=== PATIENT | female | born 1960 | race Caucasian/White ===

== ENCOUNTER 2016-10-30 16:18 | Emergency (ER) | payer MEDICARE ==
[2016-10-30] MEDS ORDERED: ASPIRIN 81 MG TABLET, CHEWABLE PO ONE (17:17)
--- NOTE | 2016-10-30 17:23 | ER Document Report ---
ED Medical Screen (RME) - General Stated Complaint: CHEST PAIN Mode of Arrival: Ambulatory Information source: Patient Notes: 66 y/o M presents to ED c/o mid chest/epigastric pain. Reports hx of pancreatitis and aortic aneurysm. Denies n/v, or sob. I have greeted and performed a rapid initial assessment of this patient. A comprehensive ED assessment and evaluation of the patient, analysis of test results and completion of the medical decision making process will be conducted by additional ED providers. TRAVEL OUTSIDE OF THE [place] IN LAST 30 DAYS: No - Related Data Allergies/Adverse Reactions: No Known Allergies Allergy (Unverified 10/30/16 17:19) Past Medical History - Social History Frequency of alcohol use: None Drug Abuse: None Renal/ Medical History: Denies: Hx Peritoneal Dialysis Physical Exam - Vital signs Vitals: Temp Pulse Resp BP Pulse Ox 98.1 F 73 21 H 142/94 H 96 10/30/16 17:11 10/30/16 17:11 10/30/16 17:11 10/30/16 17:11 10/30/16 17:11 - General General appearance: Appears well, Alert In distress: None - Respiratory Respiratory status: No respiratory distress Course - Vital Signs Vital signs: Temp Pulse Resp BP Pulse Ox 98.1 F 73 21 H 142/94 H 96 10/30/16 17:11 10/30/16 17:11 10/30/16 17:11 10/30/16 17:11 10/30/16 17:11
[2016-10-30 17:45] LABS: ABSOLUTE EOSINOPHILS # (AUTO) 0.2 10^3/uL (0.0-0.6); ABSOLUTE LYMPHOCYTES (AUTO) 2.2 10^3/uL (0.5-4.7); ABSOLUTE MONOCYTES (AUTO) 0.5 10^3/uL (0.1-1.4); ABSOLUTE NEUT (AUTO) 4.3 10^3/uL (1.7-8.2); BASOPHILS % (AUTO) 0.6 % (0-2); EOSINOPHILS % (AUTO) 2.2 % (0-6); HEMATOCRIT 45.3 % (36.0-47.0); HGB HCT DIFFERENCE -0.3; LYMPHOCYTES % (AUTO) 30.1 % (13-45); MEAN CORPUSCULAR HEMOGLOBIN 29.4 pg (27.0-33.4); MEAN CORPUSCULAR HGB CONC 33.1 g/dL (32.0-36.0); MEAN CORPUSCULAR VOLUME 89 fl (80-97); MONOCYTES % (AUTO) 7.4 % (3-13); RED BLOOD COUNT 5.11 10^6/uL (3.72-5.28); RED CELL DISTRIBUTION WIDTH 14.6 % (11.5-14.0); SEGMENTED NEUTROPHILS % (AUTO) 59.7 % (42-78); WHITE BLOOD COUNT 7.2 10^3/uL (4.0-10.5)
[2016-10-30 17:50] LABS: APPEARANCE,URINE SLIGHTLY-CLOUDY; BILIRUBIN,URINE NEGATIVE (NEGATIVE); GLUCOSE, URINE NEGATIVE (NEGATIVE); KETONES,URINE NEGATIVE (NEGATIVE); LEUKOCYTE ESTERASE,URINE MODERATE (NEGATIVE); NITRITE,URINE POSITIVE (NEGATIVE); PROTEIN,URINE NEGATIVE (NEGATIVE); URINE SPECIFIC GRAVITY 1.009; UROBILINOGEN,URINE NEGATIVE mg/dL (<2.0)
[2016-10-30 18:03] LABS: ALANINE AMINOTRANSFERASE 23 U/L (9-52); ALKALINE PHOSPHATASE 99 U/L (38-126); ANION GAP 13 (5-19); ASPARTATE AMINO TRANSFERASE 18 U/L (14-36); BILIRUBIN,TOTAL 0.6 mg/dL (0.2-1.3); BLOOD UREA NITROGEN 10 mg/dL (7-20); CALCIUM 10.2 mg/dL (8.4-10.2); CARBON DIOXIDE 26 mmol/L (22-30); CHLORIDE 105 mmol/L (98-107); CREATINE KINASE 29 U/L (30-135); CREATININE RESULT 0.69 mg/dL (0.52-1.25); GLUCOSE 83 mg/dL (75-110); SODIUM 144.3 mmol/L (137-145); TOTAL PROTEIN 7.7 g/dL (6.3-8.2)
[2016-10-30 18:28] LABS: CREATINE KINASE MB < 0.22 ng/mL (<4.55); TROPONIN I < 0.012 ng/mL
[2016-10-30] MEDS ORDERED: FAMOTIDINE INJ/PF 20 MG/2 ML SDV IV ONE (20:14)
[2016-10-30] MEDS ORDERED: MORPHINE SULFATE 10 MG/ML INJ IV ONE (20:14)
[2016-10-30] MEDS ORDERED: ONDANSETRON HCL INJ/PF 4 MG/2 ML SDV IV ONE (20:14)
--- NOTE | 2016-10-30 20:34 | EKG REPORT ---
SEVERITY:- BORDERLINE ECG - SINUS RHYTHM : Confirmed by: John Galeano MD 30-Oct-2016 20:32:54
[2016-10-30] MEDS ORDERED: HYDROMORPHONE HCL INJ/PF 2 MG/ML AMPULE IV ONE (21:48)
[2016-10-30] MEDS ORDERED: LIDOCAINE 1% INJ-PF (10 MG/ML) 30 ML SDV INFIL ONE (21:49)
[2016-10-30] MEDS ORDERED: CEFTRIAXONE INJ 1000 MG VIAL IM ONE (21:49)
[2016-10-30] MEDS ORDERED: HYDROCODONE/ACETAMINOPHEN 5-325 MG 6 TAB/DSPK PO PRN (22:00)
--- NOTE | 2016-10-30 22:01 | ER Document Report ---
ED Cardiac - General Chief Complaint: Chest Pain Stated Complaint: CHEST PAIN Mode of Arrival: Ambulatory Notes: Patient is a 56-year-old female who comes in complaining of epigastric pain. Patient has a history of chronic pancreatitis recently moved to the area. Patient states that she has not seen a primary care doctor to prescribe her chronic pain medication. Patient also has a history of aortic aneurysm. Patient states that the pain radiates into her back. Denies any tearing or ripping sensation. Patient states that the pain is less than her chest and more in her epigastrium. Patient states that she was given aspirin at triage and it seemed to make things worse. Patient denies any urinary symptoms or flank pain. Denies fever. TRAVEL OUTSIDE OF THE [place] IN LAST 30 DAYS: No - HPI Patient complains to provider of: Other - Epigastric pain Quality of pain: Burning, Dull Severity now: Moderate Severity at worst: Moderate Associated symptoms: None Exacerbated by: Denies Relieved by: Nothing Similar symptoms previously: Yes Recently seen / treated by doctor: No - Related Data Allergies/Adverse Reactions: No Known Allergies Allergy (Unverified 10/30/16 17:19) Past Medical History - General Information source: Patient - Social History Smoking Status: Current Every Day Smoker Frequency of alcohol use: None Drug Abuse: None Family History: Reviewed & Not Pertinent Patient has suicidal ideation: No Patient has homicidal ideation: No - Past Medical History Cardiac Medical History: Reports: Other - AAA Renal/ Medical History: Denies: Hx Peritoneal Dialysis GI Medical History: Reports: Other - Chronic pancreatitis Traumatic Medical History: Reports: None Infectious Medical History: Reports: None Past Surgical History: Reports: Hx Cholecystectomy, Hx Vascular Surgery Review of Systems - Review of Systems Constitutional: No symptoms reported EENT: No symptoms reported Cardiovascular: No symptoms reported Respiratory: No symptoms reported Gastrointestinal: See HPI Genitourinary: No symptoms reported Female Genitourinary: No symptoms reported Musculoskeletal: No symptoms reported Skin: No symptoms reported Hematologic/Lymphatic: No symptoms reported Neurological/Psychological: No symptoms reported Physical Exam - Vital signs Vitals: Temp Pulse Resp BP Pulse Ox 98.1 F 73 21 H 142/94 H 96 10/30/16 17:11 10/30/16 17:11 10/30/16 17:11 10/30/16 17:11 10/30/16 17:11 Interpretation: Normal - General General appearance: Appears well, Alert - HEENT Head: Normocephalic, Atraumatic Eyes: Normal Pupils: PERRL - Respiratory Respiratory status: No respiratory distress Chest status: Nontender Breath sounds: Normal Chest palpation: Normal - Cardiovascular Rhythm: Regular Heart sounds: Normal auscultation Murmur: No - Abdominal Inspection: Other - Healed incision consistent with history Distension: No distension Bowel sounds: Normal Tenderness: Nontender Organomegaly: No organomegaly - Back Back: Normal, Nontender - Extremities General upper extremity: Normal inspection, Nontender, Normal color, Normal ROM , Normal temperature General lower extremity: Normal inspection, Nontender, Normal color, Normal ROM , Normal temperature, Normal weight bearing. No: Irma's sign - Neurological Neuro grossly intact: Yes Cognition: Normal Orientation: AAOx4 [place] Coma Scale Eye Opening: Spontaneous [place] Coma Scale Verbal: Oriented [place] Coma Scale Motor: Obeys Commands [place] Coma Scale Total: 15 Speech: Normal Motor strength normal: LUE, RUE, LLE, RLE Sensory: Normal - Psychological Associated symptoms: Normal affect, Normal mood - Skin Skin Temperature: Warm Skin Moisture: Dry Skin Color: Normal Course - Re-evaluation Re-evalutation: 10/30/16 22:10 Patient is a 56 female with a history of aneurysm who comes in complaining of epigastric pain. Patient states that she is due for her to be checked in December. Patient is concerned that this is her chronic pancreatitis. She is new to the area and has not been able to get into see a doctor yet. Patient will be given pain medication to go home with then referral to primary care pain management. Stable for discharge. Understands agrees with plan. - Vital Signs Vital signs: Temp Pulse Resp BP Pulse Ox 98.1 F 73 12 155/89 H 97 10/30/16 17:11 10/30/16 17:11 10/30/16 21:22 10/30/16 21:22 10/30/16 21:42 - Laboratory Result Diagrams: 10/30/16 17:35 10/30/16 17:35 Laboratory results interpreted by me: 10/30/16 10/30/16 10/30/16 17:35 17:35 17:35 RDW 14.6 H Creatine Kinase 29 L Urine Blood MODERATE H Urine Nitrite POSITIVE H Ur Leukocyte Esterase MODERATE H Discharge - Discharge Clinical Impression: Atypical chest pain, Chronic pancreatitis Condition: Stable Disposition: HOME, SELF-CARE Instructions: Chest Pain of Unclear Cause ([facility]), Pancreatitis ([facility]), Family Physicians / Practices Prescriptions: Oxycodone HCl/Acetaminophen [Percocet 5-325 mg Tablet] 1 tab PO Q4H PRN #30 tablet PRN Reason: Forms: Elevated Blood Pressure Referrals: EDDA RASHEED MD [ACTIVE STAFF] - Follow up in 3-5 days
[2016-10-30 22:28] VITALS: BP 142/91
== END 2016-10-30 22:29 | disposition home or self-care (01) ==
LOC: ER 16:18
DX: R07.89 Other chest pain (principal); K86.1 Other chronic pancreatitis; R10.13 Epigastric pain; F17.200 Nicotine dependence, unspecified, uncomplicated; Z90.49 Acquired absence of other specified parts of digestive tract
CPT/HCPCS: 93005; 99285; 96372; 96374; 96375; 36415; 87086; 82553; 82550; 83690; 85025; 87088; 80053; 81001; 84484; 87186; 71020; 71275; 74174; 93010; A9270 ×2; J3490; J2270; J1170; J0696; J2405; S0028

== ENCOUNTER → 2017-03-07 | Outpatient (CLI) | payer MEDICARE, MEDICAID ==
--- NOTE | 2017-03-07 12:23 | RADIOLOGY REPORT (SQ) ---
EXAM DESCRIPTION: CT ABDOMEN COMBO COMPLETED DATE/TIME: 03/07/2017 10:31 am REASON FOR STUDY: EPIGASTRIC PAIN (R10.13), LUQ PIN (R10.12), ABD TENDERNESS-EPIGASTRIC (R10. R10.13 EPIGASTRIC PAIN R10.12 LEFT UPPER QUADRANT PAIN R10.816 EPIGASTRIC ABDOMINAL TENDERNESS COMPARISON: 10/30/2016 TECHNIQUE: CT scan of the abdomen performed with and without intravenous contrast, and with oral con trast. Contrasted imaging performed using helical scanning technique with dynamic intravenous contras t injection. Images reviewed with lung, soft tissue, and bone windows. Reconstructed coronal and sagi ttal MPR images reviewed. Delayed images for evaluation of the urinary system also acquired and evalu ated. All images stored on PACS. All CT scanners at this facility use dose modulation, iterative reconstruction, and/or weight based d osing when appropriate to reduce radiation dose to as low as reasonably achievable (ALARA). [facility]: Dose Right [facility]: CareDose [facility]: Dose Right [facility]: Teradose 4D [facility]: MET[employer] Network CONTRAST TYPE AND DOSE: 68mL Isovue 370- low osmolar. RENAL FUNCTION: Creatinine 0.7 GFR 97 RADIATION DOSE: 26.58mGy. LIMITATIONS: None. FINDINGS: NONCONTRASTED IMAGING: No significant renal or bladder calcifications. No other significan t organ calcifications. POSTCONTRASTED IMAGING: LOWER CHEST: No significant findings. No nodules or infiltrates. LIVER: There is mild intrahepatic ductal dilatation and there is dilatation of the common bile duct. SPLEEN: Normal size. No focal lesions. PANCREAS: No masses. No significant calcifications. No adjacent inflammation or peripancreatic fluid collections. Pancreatic duct not dilated. GALLBLADDER: Surgically absent. ADRENAL GLANDS: No significant masses or asymmetry. RIGHT KIDNEY AND URETER: No masses. A small portion of the right lower pole has been removed. No s ignificant calcifications. No hydronephrosis or hydroureter. LEFT KIDNEY AND URETER: No solid masses. No significant calcifications. No hydronephrosis or hydr oureter. AORTA AND VESSELS: There is a saccular aneurysm of the infrarenal abdominal aorta measures 39 mm in t ransverse diameter on image 39. There is mural thrombus on the right and residual lumen measures 22 mm. There is no dissection. The aorta narrows to a normal diameter at the bifurcation and there is no involvement of the iliac arteries. RETROPERITONEUM: No retroperitoneal adenopathy, hemorrhage or masses. BOWEL AND PERITONEAL CAVITY: There is mild wall thickening in the descending colon. There appears to have been resection of the right colon. APPENDIX: Surgically absent. ABDOMINAL WALL: No masses. No hernias. BONES: No significant or acute findings. OTHER: No other significant finding. IMPRESSION: 1. There is mild intrahepatic ductal dilatation and dilatation of the common bile duct felt to be secondary to the cholecystectomy. Is there clinical evidence of biliary obstruction? 2. Saccular aneurysm of the infrarenal abdominal aorta as described. The width of the aneurysm is s lightly increased compared to the earlier study. It is possible that the difference is merely second yaritza to a slightly different slice selection. 3. There is mild thickening of the wall of the descending colon. Is there clinical history of infla mmatory bowel disease? TECHNICAL DOCUMENTATION: JOB ID: [id number] Quality ID # [id number]: Final reports with documentation of one or more dose reduction techniques (e.g., Au tomated exposure control, adjustment of the mA and/or kV according to patient size, use of iterative reconstruction technique) 2010 [employer]- All Rights Reserved
== END ==
LOC: RAD 09:28
PROVIDERS: ATTEND Internal Medicine Gastroenterology
DX: R10.13 Epigastric pain (principal); R10.12 Left upper quadrant pain; R10.816 Epigastric abdominal tenderness
CPT/HCPCS: 74170; 82565

== ENCOUNTER → 2017-05-10 | Outpatient (CLI) | payer MEDICARE, MEDICAID ==
--- NOTE | 2017-05-10 13:30 | WOMENS IMAGING REPORT ---
EXAM DESCRIPTION: BILAT SCREENING MAMMO W/CAD COMPLETED DATE/TIME: 05/10/2017 12:47 pm REASON FOR STUDY: ROUTINE SCREENING; Z12.31 Z12.31 ENCNTR SCREEN MAMMOGRAM FOR MALIGNANT NEOPLASM O F NAIMA COMPARISON: None. TECHNIQUE: Standard craniocaudal and mediolateral oblique views of each breast recorded using digita l acquisition. LIMITATIONS: None. FINDINGS: No masses, calcifications or architectural distortion. No areas of suspicion. Read with the assistance of CAD. .[facility] - R2 Cenova Version 1.3 .[facility] - R2 Cenova Version 1.3 .[facility] - R2 Cenova Version 2.4 .[facility] - R2 Cenova Version 2.4 .[facility] - R2 Egyptologist Version 9.2 IMPRESSION: NORMAL MAMMOGRAM. BIRADS 1. BREAST DENSITY: c. The breasts are heterogeneously dense, which may obscure small masses. BIRAD: 1 NEGATIVE RECOMMENDATION: ROUTINE SCREENING COMMENT: The patient has been notified of the results by letter per SA requirements. Additional no tification policies are in place for contacting patient with suspicious or incomplete findings. Quality ID #225: The [place] [employer] recommends an annual screening mammogram for women aged 40 years or over. This facility utilizes a reminder system to ensure that all patients receive reminder letters, and/or direct phone calls for appointments. This includes reminders for routine scr eening mammograms, diagnostic mammograms, or other Breast Imaging Interventions when appropriate. Th is patient will be placed in the appropriate reminder system. The [place] [employer] (ACR) has developed recommendations for screening MRI of the breast s in certain patient populations, to be used in conjunction with mammography. Breast MRI surveillanc e may be appropriate for women with more than 20% lifetime risk of developing breast cancer as deter mined by genetic testing, significant family history of the disease, or history of mantle radiation f or Hodgkins Disease. ACR Practice Guidelines 2008. TECHNICAL DOCUMENTATION: FINDING NUMBER: (1) ASSESSMENT: (1) JOB ID: [id number] [employer]- All Rights Reserved
== END ==
LOC: WI 11:42
PROVIDERS: ATTEND Physician Assistant
DX: Z12.31 Encounter for screening mammogram for malignant neoplasm of breast (principal)
CPT/HCPCS: 77067; G0202

== ENCOUNTER → 2018-01-24 | Outpatient (CLI) | payer MEDICARE, MEDICAID ==
--- NOTE | 2018-01-24 11:56 | RADIOLOGY REPORT (SQ) ---
EXAM DESCRIPTION: U/S RETROPERITON (RENAL/AORTA) COMPLETED DATE/TIME: 01/24/2018 8:15 am REASON FOR STUDY: ABDOMINAL ANEURYSM I71.4 ABDOMINAL AORTIC ANEURYSM, WITHOUT RUPTURE COMPARISON: CT abdomen pelvis 03/07/2017, 10/30/2016 TECHNIQUE: Static and dynamic grayscale images acquired of the aorta and stored on PACs. Selected co nathalie Doppler and spectral images recorded. LIMITATIONS: None. FINDINGS: AORTIC CALIBER MAXIMAL PROXIMAL: 2.9 cm. MID: 2.6 cm. DISTAL: 4.3 x 3.1 cm distal abdominal aortic aneurysm, increased in size compared to CT abdomen pelvi s 03/07/2017. ILIAC DIAMETER RIGHT: 1.2 cm. LEFT: 1 cm. OTHER: No other significant finding. IMPRESSION: 4.3 x 3.1 cm distal abdominal aortic aneurysm just above the iliac bifurcation, increase d in size compared to CT exam 03/07/2017 COMMENT: Aorta screening examinations categories: Negative - less than 3 cm. TECHNICAL DOCUMENTATION: JOB ID: [id number] [employer]- All Rights Reserved Reading location - IP/workstation name: [facility]
== END ==
LOC: RAD 07:55
PROVIDERS: ATTEND Surgery
DX: I71.4 Abdominal aortic aneurysm, without rupture (principal)
CPT/HCPCS: 76770

== ENCOUNTER → 2018-05-11 | Outpatient (CLI) | payer MEDICARE, MEDICAID ==
--- NOTE | 2018-05-11 14:41 | WOMENS IMAGING REPORT ---
EXAM DESCRIPTION: BILAT SCREENING MAMMO W/CAD COMPLETED DATE/TIME: 05/11/2018 11:54 am REASON FOR STUDY: BILATERAL SCREENING; Z12.31 Z12.31 ENCNTR SCREEN MAMMOGRAM FOR MALIGNANT NEOPLASM OF NAIMA COMPARISON: 2017 TECHNIQUE: Standard craniocaudal and mediolateral oblique views of each breast recorded using digita l acquisition. LIMITATIONS: None. FINDINGS: No masses, calcifications or architectural distortion. No areas of suspicion. Read with the assistance of CAD. .[facility] - R2 Cenova Version 1.3 .[facility] Imaging - R2 Cenova Version 1.3 .[facility] - R2 Cenova Version 2.4 .[facility] - R2 Cenova Version 2.4 .[facility] - R2 Lens [employer]inder Version 9.2 IMPRESSION: NORMAL MAMMOGRAM. BIRADS 1. BREAST DENSITY: b. There are scattered areas of fibroglandular density. BIRAD: 1 NEGATIVE RECOMMENDATION: ROUTINE SCREENING COMMENT: The patient has been notified of the results by letter per SA requirements. Additional no tification policies are in place for contacting patient with suspicious or incomplete findings. Quality ID #225: The [place] [employer] recommends an annual screening mammogram for women aged 40 years or over. This facility utilizes a reminder system to ensure that all patients receive reminder letters, and/or direct phone calls for appointments. This includes reminders for routine scr eening mammograms, diagnostic mammograms, or other Breast Imaging Interventions when appropriate. Th is patient will be placed in the appropriate reminder system. The [place] [employer] (ACR) has developed recommendations for screening MRI of the breast s in certain patient populations, to be used in conjunction with mammography. Breast MRI surveillanc e may be appropriate for women with more than 20% lifetime risk of developing breast cancer as deter mined by genetic testing, significant family history of the disease, or history of mantle radiation f or Hodgkins Disease. ACR Practice Guidelines 2008. TECHNICAL DOCUMENTATION: FINDING NUMBER: (1) ASSESSMENT: (1) JOB ID: [id number] [employer]- All Rights Reserved Reading location - IP/workstation name: ANA MARÍA
== END ==
LOC: WI 11:27
PROVIDERS: ATTEND Family Medicine
DX: Z12.31 Encounter for screening mammogram for malignant neoplasm of breast (principal)
CPT/HCPCS: 77067

== ENCOUNTER 2018-08-18 20:59 | Emergency (ER) | payer MEDICARE, MEDICAID ==
[2018-08-18 22:07] LABS: ABSOLUTE EOSINOPHILS # (AUTO) 0.1 10^3/uL (0.0-0.6); ABSOLUTE LYMPHOCYTES (AUTO) 2.5 10^3/uL (0.5-4.7); ABSOLUTE MONOCYTES (AUTO) 0.4 10^3/uL (0.1-1.4); ABSOLUTE NEUT (AUTO) 4.6 10^3/uL (1.7-8.2); BASOPHILS % (AUTO) 0.4 % (0-2); EOSINOPHILS % (AUTO) 1.5 % (0-6); HEMATOCRIT 40.6 % (36.0-47.0); HEMOGLOBIN 13.7 g/dL (12.0-15.5); LYMPHOCYTES % (AUTO) 33.1 % (13-45); MEAN CORPUSCULAR HEMOGLOBIN 30.9 pg (27.0-33.4); MEAN CORPUSCULAR HGB CONC 33.7 g/dL (32.0-36.0); MEAN CORPUSCULAR VOLUME 92 fl (80-97); MONOCYTES % (AUTO) 5.2 % (3-13); PLATELET COUNT 159 10^3/uL (150-450); RED BLOOD COUNT 4.43 10^6/uL (3.72-5.28); SEGMENTED NEUTROPHILS % (AUTO) 59.8 % (42-78); TOTAL CELLS COUNTED % (AUTO) 100 %; WHITE BLOOD COUNT 7.7 10^3/uL (4.0-10.5)
[2018-08-18 22:27] LABS: ALANINE AMINOTRANSFERASE 35 U/L (9-52); ALBUMIN 3.8 g/dL (3.5-5.0); ALKALINE PHOSPHATASE 60 U/L (38-126); ANION GAP 10 (5-19); ASPARTATE AMINO TRANSFERASE 27 U/L (14-36); BILIRUBIN,DIRECT 0.2 mg/dL (0.0-0.4); BILIRUBIN,TOTAL 0.3 mg/dL (0.2-1.3); BLOOD UREA NITROGEN 16 mg/dL (7-20); CALCIUM 9.9 mg/dL (8.4-10.2); CARBON DIOXIDE 29 mmol/L (22-30); CHLORIDE 102 mmol/L (98-107); GLUCOSE 84 mg/dL (75-110); POTASSIUM 4.2 mmol/L (3.6-5.0); SODIUM 140.8 mmol/L (137-145); TOTAL PROTEIN 6.1 g/dL (6.3-8.2)
--- NOTE | 2018-08-18 22:30 | RADIOLOGY REPORT (SQ) ---
XR CHEST 1 VIEW HISTORY: cp. COMPARISON: None. FINDINGS: Normal cardiomediastinal silhouette. Lungs are clear. No pleural effusion or pneumothorax is seen. No acute osseous findings. IMPRESSION: No acute cardiopulmonary abnormality.
[2018-08-18] MEDS ORDERED: MORPHINE SULFATE 10 MG/ML INJ IV PRN (23:02)
[2018-08-18] MEDS ORDERED: FAMOTIDINE 20 MG TABLET PO ONE (23:02)
[2018-08-18] MEDS ORDERED: MAG HYDROX/AL HYDROX/SIMETH SUSP 30 ML UDCUP PO ONE (23:03)
[2018-08-18] MEDS ORDERED: METOCLOPRAMIDE HCL ORAL SOLN 10 MG/10 ML UDCUP PO ONE (23:03)
[2018-08-18] MEDS ORDERED: LIDOCAINE 2% VISCOUS SOLN 20 ML UDCUP PO ONE (23:03)
--- NOTE | 2018-08-18 23:04 | ER Document Report ---
ED General - General Chief Complaint: Chest Pain Stated Complaint: CHEST/BACK PAIN Time Seen by Provider: 08/18/18 21:36 Notes: Patient is a 58-year old female with a past medical history of tobacco dependence, hypertension, known history of an abdominal aortic aneurysm, prior surgical history of a cholecystectomy, who presents with approximately 12 hours of progressively worsening upper abdominal pain with associated reflux into her chest. She describes this as a burning, aching, constant pain. She notes associated nausea and burping. Symptoms are worsened by attempts at eating. She has not trying to relieve her symptoms. She notes that the symptoms did start gradually after she began taking prednisone due to concerns of a mild COPD exacerbation over the course of the past 1 week. She states this feels like when she has had reflux in the past. She has not contacted her primary care doctor regarding today's concerns. She does deny any distinct chest pain contrary to triage assessment stated the pain is more in her epigastrium and is a sensation of reflux into her chest. She denies associated shortness of breath. She denies any known cardiac history, history of DVT or pulmonary embolus. TRAVEL OUTSIDE OF THE [place] IN LAST 30 DAYS: No - Related Data Allergies/Adverse Reactions: codeine Allergy (Verified 08/18/18 20:59) Past Medical History - General Information source: Patient - Social History Smoking Status: Current Every Day Smoker Chew tobacco use (# tins/day): No Frequency of alcohol use: None Drug Abuse: None Lives with: Spouse/Significant other Family History: Reviewed & Not Pertinent Patient has suicidal ideation: No Patient has homicidal ideation: No - Past Medical History Cardiac Medical History: Reports: Hx Coronary Artery Disease - AAA Denies: Hx Heart Attack, Hx Hypertension Pulmonary Medical History: Reports: Hx COPD Denies: Hx Asthma, Hx Bronchitis, Hx Pneumonia Neurological Medical History: Denies: Hx Cerebrovascular Accident, Hx Seizures Renal/ Medical History: Denies: Hx Peritoneal Dialysis Musculoskeletal Medical History: Reports Hx Arthritis Past Surgical History: Reports: Hx Cholecystectomy, Hx Vascular Surgery - Immunizations Hx Diphtheria, Pertussis, Tetanus Vaccination: Yes Review of Systems - Review of Systems Notes: Constitutional: Negative for fever. HENT: Negative for sore throat. Eyes: Negative for visual changes. Cardiovascular: Negative for chest pain. Respiratory: Negative for shortness of breath. Gastrointestinal: Positive for epigastric abdominal pain and nausea Genitourinary: Negative for dysuria. Musculoskeletal: Negative for back pain. Skin: Negative for rash. Neurological: Negative for headaches, weakness or numbness. 10 point ROS negative except as marked above and in HPI. Physical Exam - Vital signs Vitals: Temp Pulse Resp BP Pulse Ox 97.6 F 64 20 115/82 94 08/18/18 21:09 08/18/18 21:09 08/18/18 21:09 08/18/18 21:09 08/18/18 21:09 Interpretation: Normal Notes: PHYSICAL EXAMINATION: GENERAL: Appears moderately uncomfortable but in no acute distress HEAD: Atraumatic, normocephalic. EYES: Pupils equal round and reactive to light, extraocular movements intact, sclera anicteric, conjunctiva are normal. ENT: nares patent, oropharynx clear without exudates. Moderately dry mucous membranes. NECK: Normal range of motion, supple without lymphadenopathy LUNGS: Breath sounds clear to auscultation bilaterally and equal. No wheezes rales or rhonchi. HEART: Regular rate and rhythm without murmurs ABDOMEN: Soft, mild pain on palpation of the epigastrium but no other localized areas of tenderness, normoactive bowel sounds. No guarding, no rebound. No masses appreciated. EXTREMITIES: Normal range of motion, no pitting or edema. No cyanosis. NEUROLOGICAL: No focal neurological deficits. Moves all extremities spontaneously and on command. PSYCH: Normal mood, normal affect. SKIN: Warm, Dry, normal turgor, no rashes or lesions noted. Course - Re-evaluation Re-evalutation: 08/18/18 23:03 Patient presents with epigastric abdominal pain with associated reflux symptoms most consistent with likely gastritis. This seems particularly likely in the context of her symptoms starting after initiation of oral prednisone. Patient has minimal epigastric abdominal tenderness on palpation. Patient is status post cholecystectomy. A CT scan of her abdomen pelvis was obtained given the history of an abdominal aneurysm to ensure that this was not playing into her clinical picture and is noted to have no acute findings. Lipase is normal. No LFT changes. Based on history and exam, I do not suspect ACS, pulmonary embolus , SBO, mesenteric ischemia, acute pancreatitis, biliary pathology, or an abdominal aortic dissection. Patient has had improvement of symptoms here with a GI cocktail. At this time will discharge with return precautions and follow- up recommendations. Verbal discharge instructions given a the bedside and opportunity for questions given. Medication warnings reviewed. Patient is in agreement with this plan and has verbalized understanding of return precautions and the need for primary care follow-up in the next 24-72 hours. - Vital Signs Vital signs: Temp Pulse Resp BP Pulse Ox 98.6 F 59 L 16 115/82 100 08/19/18 01:09 08/19/18 01:09 08/19/18 01:09 08/19/18 01:09 08/19/18 01:09 - Laboratory Result Diagrams: 08/18/18 21:56 08/18/18 21:56 Laboratory results interpreted by me: 08/18/18 21:56 Total Protein 6.1 L - Diagnostic Test Radiology reviewed: Image reviewed, Reports reviewed Radiology results interpreted by me: 08/19/18 03:09 Chest x-ray: No acute infiltrate or pneumothorax - EKG Interpretation by Me Additional EKG results interpreted by me: 08/19/18 03:09 Sinus rhythm. Rate 61. No ST elevations or depressions. QTC 423. Discharge - Discharge Clinical Impression: Abdominal pain Qualifiers: Abdominal location: epigastric Qualified Code(s): R10.13 - Epigastric pain Gastritis Qualifiers: Gastritis type: unspecified gastritis Chronicity: acute Gastritis bleeding: without bleeding Qualified Code(s): K29.00 - Acute gastritis without bleeding Condition: Good Disposition: HOME, SELF-CARE Additional Instructions: Your symptoms appear to be most consistent with stomach or upper intestinal irritation. Please begin taking famotidine 40 mg in the morning and 40 mg at night. Please also take Carafate as prescribed. The CT scan today shows that your abdominal aortic aneurysm is 3 mm and is otherwise normal. Please return to emergency department immediately if you have worsening of your pain, shortness of breath, vomiting, become unable to exert yourself due to pain or difficulty breathing, you pass out, or have any pain that radiates into your arms, jaw, or back. Please also return if you have any additional symptoms that are concerning to you. As we have discussed, the most important thing is lifestyle changes. You need to avoid smoking, sodas, tea, coffee, alcohol, spicy foods, and acidic foods such as citrus fruits, tomato based products, berries, and most fruit juices. Prescriptions: Famotidine 40 mg PO BID #60 tablet Sucralfate [Carafate 1 gm Tablet] 1 gm PO ACHS #120 tablet Referrals: STELLA MCLAUGHLIN DO [Primary Care Provider] - Follow up in 3-5 days
[2018-08-18 23:13] LABS: LIPASE 52.8 U/L (23-300)
--- NOTE | 2018-08-19 00:18 | RADIOLOGY REPORT (SQ) ---
CT ABDOMEN PELVIS WITH IV CONTRAST HISTORY: Abdominal pain. History of AAA. COMPARISON: None. TECHNIQUE: CT scan of the abdomen and pelvis with IV contrast. This exam was performed according to our departmental dose-optimization program, which includes automated exposure control, adjustment of the mA and/or kV according to patient size and/or use of iterative reconstruction technique. FINDINGS: Lung bases are clear. No pleural or pericardial effusions. The pancreas and adrenal glands are unremarkable. Hepatomegaly and hepatic steatosis. Status post cholecystectomy. Punctate calcifications scattered throughout the spleen. Kidneys are unremarkable without hydronephrosis. Prior hysterectomy is noted. Surgical clips along the pelvic sidewall. Surgical sutures are seen in the region of the transverse colon. No bowel obstruction. No free fluid or free air. Infrarenal abdominal aorta measures 3 cm in maximum diameter. Small amount of peripheral intraluminal fibrofatty plaque along with atherosclerotic calcifications. No acute osseous findings. IMPRESSION: No acute abdominal or pelvic pathology. 3.0 cm AAA Recommend follow-up every 3 years. Reference: J Vasc Surg 2009 Oct;50(4 Suppl):S2-49.
[2018-08-19 01:10] VITALS: BP 115/82
--- NOTE | 2018-08-19 09:59 | EKG REPORT ---
SEVERITY:- NORMAL ECG - SINUS RHYTHM : Confirmed by: John Galeano MD 19-Aug-2018 09:59:20
== END 2018-08-19 01:10 | disposition home or self-care (01) ==
LOC: ER 20:59
DX: R10.13 Epigastric pain (principal); K29.00 Acute gastritis without bleeding; R07.9 Chest pain, unspecified; F17.200 Nicotine dependence, unspecified, uncomplicated; I25.10 Atherosclerotic heart disease of native coronary artery without angina pectoris; J44.9 Chronic obstructive pulmonary disease, unspecified; Z90.49 Acquired absence of other specified parts of digestive tract; Z88.6 Allergy status to analgesic agent
CPT/HCPCS: 93005; 99284; 96374; 36415; 83690; 85025; 80053; 84484; 71045; 74177; 93010; A9270 ×2; J3490; J2270

== ENCOUNTER 2018-12-11 00:53 | Emergency (ER) | payer MEDICARE, MEDICAID ==
[2018-12-11 01:39] LABS: ABSOLUTE EOSINOPHILS # (AUTO) 0.1 10^3/uL (0.0-0.6); ABSOLUTE LYMPHOCYTES (AUTO) 1.2 10^3/uL (0.5-4.7); ABSOLUTE MONOCYTES (AUTO) 0.4 10^3/uL (0.1-1.4); ABSOLUTE NEUT (AUTO) 2.8 10^3/uL (1.7-8.2); BASOPHILS % (AUTO) 0.5 % (0-2); EOSINOPHILS % (AUTO) 1.8 % (0-6); HEMATOCRIT 35.7 % (36.0-47.0); HEMOGLOBIN 12.1 g/dL (12.0-15.5); LYMPHOCYTES % (AUTO) 27.3 % (13-45); MEAN CORPUSCULAR HEMOGLOBIN 30.8 pg (27.0-33.4); MEAN CORPUSCULAR HGB CONC 33.9 g/dL (32.0-36.0); MEAN CORPUSCULAR VOLUME 91 fl (80-97); PLATELET COUNT 188 10^3/uL (150-450); RED BLOOD COUNT 3.93 10^6/uL (3.72-5.28); RED CELL DISTRIBUTION WIDTH 13.4 % (11.5-14.0); SEGMENTED NEUTROPHILS % (AUTO) 62.4 % (42-78); TOTAL CELLS COUNTED % (AUTO) 100 %; WHITE BLOOD COUNT 4.5 10^3/uL (4.0-10.5)
--- NOTE | 2018-12-11 01:53 | RADIOLOGY REPORT (SQ) ---
EXAM DESCRIPTION: XR CHEST 1 VIEW COMPLETED DATE/TME: 12/11/2018 01:18 CLINICAL HISTORY: 58 years, Female, cp COMPARISON: 10/30/2016 chest NUMBER OF VIEWS: 1 TECHNIQUE: AP portable chest LIMITATIONS: None. FINDINGS: The heart size is at the upper limits of normal., With mild pulmonary vascular congestion.. Airspace opacity left lung base with small left pleural effusion. No pneumothorax. Osteopenia. IMPRESSION: Left basilar airspace opacity suspicious for pneumonia. Small left pleural effusion. Heart size at the upper limits of normal. Mild pulmonary vascular congestion. copyright 2010 [employer]- All Rights Reserved
[2018-12-11] MEDS ORDERED: NORMAL SALINE 1000 ML 1,000 ML IV ONE (01:54)
[2018-12-11] MEDS: FENTANYL CITRATE INJ/PF 100 MCG/2 ML AMPUL IV PRN ×2 (02:07→03:19)
[2018-12-11 02:10] LABS: ALANINE AMINOTRANSFERASE 36 U/L (9-52); ALBUMIN 3.4 g/dL (3.5-5.0); ALKALINE PHOSPHATASE 169 U/L (38-126); ANION GAP 7 (5-19); ASPARTATE AMINO TRANSFERASE 46 U/L (14-36); BILIRUBIN,DIRECT 0.2 mg/dL (0.0-0.4); BILIRUBIN,TOTAL 0.2 mg/dL (0.2-1.3); BLOOD UREA NITROGEN 7 mg/dL (7-20); CALCIUM 9.1 mg/dL (8.4-10.2); CARBON DIOXIDE 28 mmol/L (22-30); CHLORIDE 109 mmol/L (98-107); GLUCOSE 82 mg/dL (75-110); POTASSIUM 3.6 mmol/L (3.6-5.0); SODIUM 143.5 mmol/L (137-145); TOTAL PROTEIN 5.6 g/dL (6.3-8.2)
--- NOTE | 2018-12-11 02:15 | ER Document Report ---
ED General - General Chief Complaint: Chest Pain Stated Complaint: CHEST PAIN/ABDOMINAL PAIN Time Seen by Provider: 12/11/18 01:18 Primary Care Provider: STELLA MCLAUGHLIN DO [Primary Care Provider] - Follow up as needed Notes: Patient is a 58-year-old female with a past medical history of an abdominal aortic aneurysm who presents with chest and abdominal pain that started shortly prior to arrival. Patient describes this as a stabbing pain to her upper mid abdomen as well as her left lower chest. Patient states this woke her from sleep. States it is eased off a lot since onset but does continue to be present. Currently very mild in nature. Nothing seems to improve or worsen the symptoms. States that she has had similar symptoms in the past with gastritis. Notes nausea but no vomiting. No fever or constitutional symptoms. Denies shortness of breath. Has not seen her primary care physician regarding today's concerns. TRAVEL OUTSIDE OF THE [place] IN LAST 30 DAYS: No - Related Data Allergies/Adverse Reactions: codeine Allergy (Verified 08/18/18 20:59) Past Medical History - General Information source: Patient - Social History Smoking Status: Current Every Day Smoker Chew tobacco use (# tins/day): No Frequency of alcohol use: Rare Drug Abuse: None Lives with: Spouse/Significant other Family History: Reviewed & Not Pertinent Patient has suicidal ideation: No Patient has homicidal ideation: No - Past Medical History Cardiac Medical History: Reports: Hx Coronary Artery Disease - AAA Denies: Hx Heart Attack, Hx Hypertension Pulmonary Medical History: Reports: Hx COPD Denies: Hx Asthma, Hx Bronchitis, Hx Pneumonia Neurological Medical History: Denies: Hx Cerebrovascular Accident, Hx Seizures Renal/ Medical History: Denies: Hx Peritoneal Dialysis Musculoskeletal Medical History: Reports Hx Arthritis Past Surgical History: Reports: Hx Cholecystectomy, Hx Vascular Surgery - Immunizations Hx Diphtheria, Pertussis, Tetanus Vaccination: Yes Review of Systems - Review of Systems Notes: Constitutional: Negative for fever. HENT: Negative for sore throat. Eyes: Negative for visual changes. Cardiovascular: Positive for chest pain. Respiratory: Negative for shortness of breath. Gastrointestinal: Positive abdominal pain and nausea Genitourinary: Negative for dysuria. Musculoskeletal: Negative for back pain. Skin: Negative for rash. Neurological: Negative for headaches, weakness or numbness. 10 point ROS negative except as marked above and in HPI. Physical Exam - Vital signs Interpretation: Normal Notes: PHYSICAL EXAMINATION: GENERAL: Well-appearing, well-nourished and in no acute distress. HEAD: Atraumatic, normocephalic. EYES: Pupils equal round and reactive to light, extraocular movements intact, sclera anicteric, conjunctiva are normal. ENT: nares patent, oropharynx clear without exudates. Moist mucous membranes. NECK: Normal range of motion, supple without lymphadenopathy LUNGS: Breath sounds clear to auscultation bilaterally and equal. No wheezes r ales or rhonchi. HEART: Regular rate and rhythm without murmurs ABDOMEN: Soft, nontender, normoactive bowel sounds. No guarding, no rebound. No masses appreciated. EXTREMITIES: Normal range of motion, no pitting or edema. No cyanosis. NEUROLOGICAL: No focal neurological deficits. Moves all extremities spontaneously and on command. PSYCH: Normal mood, normal affect. SKIN: Warm, Dry, normal turgor, no rashes or lesions noted. Course - Re-evaluation Re-evalutation: 12/11/18 02:36 Patient presents with chest and abdominal pain with a known history of an abdominal aortic aneurysm. I have evaluated this patient in the past for similar presentation at which time her CTs were normal. However it is very difficult to say with any definitive certainty that she is not having an aortic pathology as the cause of her chest abdominal pain and I would therefore proceed with CTA of the chest abdomen pelvis to definitively exclude. Her exam is otherwise unremarkable suspect this is more likely an upper intestinal pathology given her history and characterization of her symptoms. - Laboratory Result Diagrams: 12/11/18 01:07 12/11/18 01:07 Laboratory results interpreted by me: 12/11/18 12/11/18 01:07 01:07 Hct 35.7 L Chloride 109 H AST 46 H Alkaline Phosphatase 169 H Total Protein 5.6 L Albumin 3.4 L - Diagnostic Test Radiology reviewed: Reports reviewed Discharge - Discharge Clinical Impression: Chest discomfort Abdominal pain Qualifiers: Abdominal location: unspecified location Qualified Code(s): R10.9 - Unspecified abdominal pain Constipation Qualifiers: Constipation type: unspecified constipation type Qualified Code(s): K59.00 - Constipation, unspecified Condition: Good Disposition: HOME, SELF-CARE Additional Instructions: Your CT scans do not show any evidence of complications from your abdominal aneurysm. The other CT portions of the CT scan are also normal. Your labs are also normal. The only finding today is that you are significantly constipated. Please take 2 capfuls of MiraLAX daily 1 In the morning 1 At night. Return if you develop vomiting, fever greater than 100.4 F, pass out, or develop any other symptoms that are worrisome to you. Referrals: STELLA MCLAUGHLIN, DO [Primary Care Provider] - Follow up as needed
--- NOTE | 2018-12-11 02:52 | RADIOLOGY REPORT (SQ) ---
EXAM DESCRIPTION: CT CHEST, abdomen and pelvis ANGIOGRAPHY WITHOUT THEN WITH IV CONTRAST COMPLETED DATE/TME: 12/11/2018 01:53 CLINICAL HISTORY: 58 years, Female, hx abdominal aneurysm, chest/ab pain COMPARISON: 08/18/2018 CT abdomen/pelvis TECHNIQUE: 971 Images stored on PACS. All CT scanners at this facility use dose modulation, iterative reconstruction, and/or weight based dosing when appropriate to reduce radiation dose to as low as reasonably achievable (ALARA). Axial CTA images were obtained with coronal and sagittal MIPS reconstructions. [facility]: Dose Right [facility]: CareDose [facility]: Dose Right [facility]: Teradose 4D [facility]: Smart roundCorner LIMITATIONS: None. FINDINGS: CTA chest: The mediastinal vasculature enhances normally. No intraluminal filling defect to suggest pulmonary embolus. Mild ectasia of the descending thoracic aorta. Negative for thoracic aortic aneurysm or dissection. Calcified mediastinal and hilar lymph nodes. The heart and pericardium are otherwise unremarkable. Osseous structures of the thorax are grossly intact. Tiny left pleural effusion is noted. Subsegmental atelectasis in the lung bases bilaterally. No pneumothorax. CTA abdomen/pelvis: The visualized liver, spleen, adrenal glands, pancreas, kidneys are unremarkable. Status post cholecystectomy. No gross evidence for bowel obstruction. Large amount of stool in the colon. No free air or free fluid. The celiac axis and superior mesenteric arteries are widely patent. The inferior mesenteric artery is widely patent. Widely patent renal arteries bilaterally. Atheromatous change with stable infrarenal abdominal aortic aneurysm measuring approximately 3.6 x 3.9 cm. No evidence for dissection. Stable mural thrombus formation and intimal calcification. IMPRESSION: Negative for pulmonary embolus. Tiny left pleural effusion.. Mild ectasia of the ascending thoracic aorta. Stable infrarenal abdominal aortic aneurysm. Please refer to below criteria for aneurysm follow-up. Large amount of stool in the colon. AAA Size: Follow-up Recommendation (1): 2.6 - 2.9 cm Every 5 years (2) 3.0 - 3.4 cm Every 3 years 3.5 - 3.9 cm Every 12 months 4.0 - 4.4 cm Every 12 months, vasc consult rec 4.5 - 5.4 cm Every 6 months, vasc consult rec >=5.5 cm Referral to vascular surgeon recommended (1)Based upon the Society for Vascular Surgery Guidelines: J Vasc Surg. 2009 Oct;50(4 Suppl):S2-49 (2)For aortas of max nishant of 2.6-2.9 cm that meet criteria for AAA (>= 1.5 x proximal normal segment). TECHNICAL DOCUMENTATION: Quality ID # [id number]: Final reports with documentation of one or more dose reduction techniques (e.g., Automated exposure control, adjustment of the mA and/or kV according to patient size, use of iterative reconstruction technique) copyright 2011 [employer]- All Rights Reserved
[2018-12-11] MEDS ORDERED: LACTULOSE SYRUP 20 GM/30 ML UDCUP PO ONE (03:29)
[2018-12-11 03:42] VITALS: BP 141/89
--- NOTE | 2018-12-11 10:27 | EKG REPORT ---
SEVERITY:- NORMAL ECG - SINUS RHYTHM : Confirmed by: Sanjana Villanueva MD 11-Dec-2018 10:26:11
== END 2018-12-11 03:44 | disposition home or self-care (01) ==
LOC: ER 00:53
DX: R07.9 Chest pain, unspecified (principal); K59.00 Constipation, unspecified; R10.13 Epigastric pain; I71.4 Abdominal aortic aneurysm, without rupture; R11.0 Nausea; J44.9 Chronic obstructive pulmonary disease, unspecified; I25.10 Atherosclerotic heart disease of native coronary artery without angina pectoris; F17.200 Nicotine dependence, unspecified, uncomplicated; Z87.19 Personal history of other diseases of the digestive system; Z88.5 Allergy status to narcotic agent
CPT/HCPCS: 93005; 99285; 96361; 96374; 36415; 85025; 80053; 84484; 71045; 71275; 74174; 93010; J3010; A9270; J7030

== ENCOUNTER 2018-12-13 18:11 | Emergency (ER) | payer MEDICARE, MEDICAID ==
--- NOTE | 2018-12-13 20:59 | ER Document Report ---
ED Medical Screen (RME) - General Chief Complaint: Chest Pain Stated Complaint: ABDOMINAL PAIN Time Seen by Provider: 12/13/18 20:47 Primary Care Provider: STELLA MCLAUGHLIN DO [Primary Care Provider] - Follow up as needed Mode of Arrival: Ambulatory Information source: Patient Notes: This is a 58-year-old female with a history of colon cancer (partial colectomy 2004), uterine cancer (hysterectomy), kidney cancer (partial right nephrectomy). Patient presents to the emergency room with upper abdominal pain (left upper quadrant) worse with lying down and laying on the left side and with movement. She does report she was evaluated in the emergency room Monday night and told she was constipated. She did take MiraLAX states she is been passing watery stools. TRAVEL OUTSIDE OF THE [place] IN LAST 30 DAYS: No - Related Data Allergies/Adverse Reactions: codeine Allergy (Verified 08/18/18 20:59) Past Medical History - Past Medical History Cardiac Medical History: Reports: Hx Coronary Artery Disease - AAA Denies: Hx Heart Attack, Hx Hypertension Pulmonary Medical History: Reports: Hx COPD Denies: Hx Asthma, Hx Bronchitis, Hx Pneumonia Neurological Medical History: Denies: Hx Cerebrovascular Accident, Hx Seizures Renal/ Medical History: Denies: Hx Peritoneal Dialysis Musculoskeltal Medical History: Reports Hx Arthritis Past Surgical History: Reports: Hx Cholecystectomy, Hx Vascular Surgery - Immunizations Hx Diphtheria, Pertussis, Tetanus Vaccination: Yes Physical Exam - Vital signs Vitals: Temp Pulse Resp BP Pulse Ox 99.0 F 72 18 137/87 H 96 12/13/18 18:35 12/13/18 18:35 12/13/18 18:35 12/13/18 18:35 12/13/18 18:35 Course - Vital Signs Vital signs: Temp Pulse Resp BP Pulse Ox 99.0 F 72 18 137/87 H 96 12/13/18 18:35 12/13/18 18:35 12/13/18 18:35 12/13/18 18:35 12/13/18 18:35 Doctor's Discharge - Discharge Referrals: STELLA MCLAUGHLIN DO [Primary Care Provider] - Follow up as needed
[2018-12-13 22:01] LABS: ABSOLUTE LYMPHOCYTES (AUTO) 1.4 10^3/uL (0.5-4.7); ABSOLUTE MONOCYTES (AUTO) 0.7 10^3/uL (0.1-1.4); ABSOLUTE NEUT (AUTO) 4.6 10^3/uL (1.7-8.2); BASOPHILS % (AUTO) 0.5 % (0-2); EOSINOPHILS % (AUTO) 0.3 % (0-6); HEMATOCRIT 36.7 % (36.0-47.0); HEMOGLOBIN 12.9 g/dL (12.0-15.5); LYMPHOCYTES % (AUTO) 20.5 % (13-45); MEAN CORPUSCULAR HEMOGLOBIN 31.3 pg (27.0-33.4); MEAN CORPUSCULAR HGB CONC 35.3 g/dL (32.0-36.0); MEAN CORPUSCULAR VOLUME 89 fl (80-97); MONOCYTES % (AUTO) 9.8 % (3-13); PLATELET COUNT 222 10^3/uL (150-450); RED BLOOD COUNT 4.13 10^6/uL (3.72-5.28); RED CELL DISTRIBUTION WIDTH 13.6 % (11.5-14.0); SEGMENTED NEUTROPHILS % (AUTO) 68.9 % (42-78); TOTAL CELLS COUNTED % (AUTO) 100 %; WHITE BLOOD COUNT 6.6 10^3/uL (4.0-10.5)
--- NOTE | 2018-12-13 22:04 | ER Document Report ---
ED General - General Chief Complaint: Chest Pain Stated Complaint: ABDOMINAL PAIN Time Seen by Provider: 12/13/18 20:47 Mode of Arrival: Ambulatory Notes: Patient is a pleasant 50-year-old female who presents with complaint of some abdominal pain. No vomiting. No fevers. No diarrhea. No bloody stools. Patient says that the abdominal pain is been ongoing for several days. She was seen here 2 days ago. She had a CTA of the chest abdomen pelvis performed because patient does have a history of a known aortic aneurysm. This was negative except for a large amount of stool. She was placed on MiraLAX. She says since taking MiraLAX she has had recurrent watery stools. She is continue take the MiraLAX despite the watery stools. She says that the pain is mostly in the left upper quadrant of the abdomen. Some nausea but no vomiting. TRAVEL OUTSIDE OF THE [place] IN LAST 30 DAYS: No - Related Data Allergies/Adverse Reactions: codeine Allergy (Verified 08/18/18 20:59) pregabalin [From Lyrica] Allergy (Verified 12/13/18 21:02) Past Medical History - General Information source: Patient - Social History Smoking Status: Current Every Day Smoker Frequency of alcohol use: None Drug Abuse: None Family History: Reviewed & Not Pertinent Patient has suicidal ideation: No Patient has homicidal ideation: No - Past Medical History Cardiac Medical History: Reports: Hx Coronary Artery Disease - AAA Denies: Hx Heart Attack, Hx Hypertension Pulmonary Medical History: Reports: Hx COPD Denies: Hx Asthma, Hx Bronchitis, Hx Pneumonia Neurological Medical History: Denies: Hx Cerebrovascular Accident, Hx Seizures Renal/ Medical History: Denies: Hx Peritoneal Dialysis GI Medical History: Reports: Hx Gastroesophageal Reflux Disease Musculoskeletal Medical History: Reports Hx Arthritis Past Surgical History: Reports: Hx Abdominal Surgery - ovaries removed and partial colon rmeoved, Hx Cholecystectomy, Hx Hysterectomy, Hx Kidney (Renal Surgery) - partial R kidney removed, Hx Vascular Surgery - Immunizations Hx Diphtheria, Pertussis, Tetanus Vaccination: Yes Review of Systems - Review of Systems Notes: My Normal Review Basic REVIEW OF SYSTEMS: CONSTITUTIONAL : Denies fever, chills, or sweats. Denies recent illness. EENT: Denies eye, ear, throat, or mouth pain or symptoms. Denies nasal or sinus congestion. RESPIRATORY: Denies cough, cold, or chest congestion. Denies shortness of breath, difficulty breathing, or wheezing. GASTROINTESTINAL: Left upper quadrant abdominal pain. Some nausea. No vomiting. GENITOURINARY: Denies difficulty urinating, painful urination, burning, frequency, or blood in urine. MUSCULOSKELETAL: Denies neck or back pain or joint pain or swelling. SKIN: Denies rash or skin lesions. NEUROLOGICAL: Denies altered mental status or loss of consciousness. Denies he adache. Denies weakness or paralysis or loss of use of either side. Denies problems with gait or speech. Denies sensory or motor loss. ALL OTHER SYSTEMS REVIEWED AND NEGATIVE. Physical Exam - Vital signs Vitals: Temp Pulse Resp BP Pulse Ox 99.0 F 72 18 137/87 H 96 12/13/18 18:35 12/13/18 18:35 12/13/18 18:35 12/13/18 18:35 12/13/18 18:35 - Notes Notes: General Appearance: Well nourished, alert, cooperative, no acute distress, mild obvious discomfort. Vitals: reviewed, See vital signs table. Head: no swelling or tenderness to the head Eyes: PERRL, EOMI, Conjuctiva clear Mouth: No decreasd moisture Lungs: No wheezing, No rales, No rhonci, No accessory muscle use, good air exchange bilaterally. Heart: Normal rate, Regular rythm, No murmur, no rub Abdomen: Normal BS, soft, No rigidity, some pain to palpation over left upper quadrant of the abdomen. Mild epigastric pain. Remainder of abdomen is nontender except for chronic mild tenderness to palpation which she says is unchanged and always there since her surgery many years ago. Extremities: strength 5/5 in all extremities, good pulses in all extremities, no swelling or tenderness in the extremities, no edema. Skin: warm, dry, appropriate color, no rash Neuro: speech clear, oriented x 3, normal affect, responds appropriately to questions. Course - Re-evaluation Re-evalutation: 12/13/18 22:51 On exam patient looks well. Abdomen is soft. She does have some diffuse mild tenderness which she says is chronic. She is only pain that is new is the pain in the left upper quadrant which she has had now for a few days. I did not repeat a CT scan as she just had a CTA 2 days ago. Abdomen is also benign on exam. She has been having liquidy stools she continues to take the MiraLAX. 3 as well as possible ileus. In reviewing her x-rays she has a large amount of gas. I informed her that she should stop the MiraLAX. I encouraged her to take fiber supplementation. Encouraged her to drink clear liquids and water. I will prescribe her some Zofran. I encouraged her return to ER immediately if she has any worsening of her pain, fevers, intractable vomiting, or if she feels that she is worsening in any way. Patient agrees with plan will be discharged home. Dictation of this chart was performed using voice recognition software; therefore, there may be some unintended grammatical errors. - Vital Signs Vital signs: Temp Pulse Resp BP Pulse Ox 98.1 F 66 16 146/94 H 95 12/13/18 23:09 12/13/18 23:09 12/13/18 23:09 12/13/18 23:09 12/13/18 23:09 - Laboratory Result Diagrams: 12/13/18 21:53 12/13/18 21:53 Laboratory results interpreted by me: 12/13/18 21:53 BUN 4 L Creatinine 0.49 L Alkaline Phosphatase 147 H Lipase 13.4 L - EKG Interpretation by Me Additional EKG results interpreted by me: 12/13/18 22:03 EKG is reviewed and interpreted by me. EKG shows sinus rhythm with a rate of [address] segment elevation or depression. No ischemic T wave inversions. AK interval, QRS duration, QT intervals are within normal range. Old EKG for comparison is from December 11, 2018. Discharge - Discharge Clinical Impression: Abdominal pain Qualifiers: Abdominal location: left upper quadrant Qualified Code(s): R10.12 - Left upper quadrant pain Condition: Good Disposition: HOME, SELF-CARE Additional Instructions: Please stop taking the Miralax. Please start taking Fibercon or metamucil every day and drink noncaffeinated beverages such as water. Please return to the ER immediately if you develop worsening abdominal pain, fevers, vomiting, or feel that you are worsening in any way. Please follow up with your doctor or with us in 2 days if you are not having improvement in your pain. Prescriptions: Ondansetron [Zofran Odt 4 mg Tablet] 1 tab PO Q4H PRN #15 tab.rapdis PRN Reason: For Nausea/Vomiting
[2018-12-13] MEDS ORDERED: METOCLOPRAMIDE HCL ORAL SOLN 10 MG/10 ML UDCUP PO ONE (22:12)
[2018-12-13] MEDS ORDERED: MAG HYDROX/AL HYDROX/SIMETH SUSP 30 ML UDCUP PO ONE (22:12)
[2018-12-13] MEDS ORDERED: LIDOCAINE 2% VISCOUS SOLN 20 ML UDCUP PO ONE (22:12)
[2018-12-13 22:30] LABS: ALANINE AMINOTRANSFERASE 30 U/L (9-52); ALBUMIN 4.1 g/dL (3.5-5.0); ALKALINE PHOSPHATASE 147 U/L (38-126); ANION GAP 9 (5-19); ASPARTATE AMINO TRANSFERASE 19 U/L (14-36); BILIRUBIN,DIRECT 0.2 mg/dL (0.0-0.4); BILIRUBIN,TOTAL 0.5 mg/dL (0.2-1.3); BLOOD UREA NITROGEN 4 mg/dL (7-20); CALCIUM 9.6 mg/dL (8.4-10.2); CARBON DIOXIDE 26 mmol/L (22-30); CHLORIDE 106 mmol/L (98-107); GLUCOSE 88 mg/dL (75-110); LIPASE 13.4 U/L (23-300); POTASSIUM 3.8 mmol/L (3.6-5.0); SODIUM 140.9 mmol/L (137-145); TOTAL PROTEIN 6.7 g/dL (6.3-8.2)
--- NOTE | 2018-12-13 22:39 | RADIOLOGY REPORT (SQ) ---
EXAM DESCRIPTION: XR ABDOMEN SUPINE AND ERECT WITH CHEST (ABD ACUTE SERIES) COMPLETED DATE/TME: 12/13/2018 22:12 CLINICAL HISTORY: 58 years, Female, LUQ abdominal pain COMPARISON: 12/11/2018 chest NUMBER OF VIEWS: 3 TECHNIQUE: Upright chest with supine and erect views of the abdomen LIMITATIONS: None. FINDINGS: Heart size is normal. Improved aeration of the left lung base. No pneumothorax. No free air under the hemidiaphragms. The bowel gas pattern is nonspecific. Nondilated air-filled loops of large and small bowel with scattered air-fluid levels likely reflects ileus. No free air. Surgical clips are noted. IMPRESSION: Improved aeration of the left lung base. Probable ileus, as above copyright 2010 [employer]- All Rights Reserved
[2018-12-13 23:11] VITALS: BP 146/94
--- NOTE | 2018-12-14 07:32 | EKG REPORT ---
SEVERITY:- NORMAL ECG - SINUS RHYTHM : Confirmed by: Sanjana Villanueva MD 14-Dec-2018 07:32:12
== END 2018-12-13 23:11 | disposition home or self-care (01) ==
LOC: ER 18:11
DX: R10.12 Left upper quadrant pain (principal); R07.9 Chest pain, unspecified; R11.0 Nausea; F17.200 Nicotine dependence, unspecified, uncomplicated; I25.10 Atherosclerotic heart disease of native coronary artery without angina pectoris; J44.9 Chronic obstructive pulmonary disease, unspecified; Z88.6 Allergy status to analgesic agent; Z90.49 Acquired absence of other specified parts of digestive tract; Z90.710 Acquired absence of both cervix and uterus
CPT/HCPCS: 93005; 99284; 36415; 83690; 85025; 80053; 74022; 93010; J3490; A9270

== ENCOUNTER → 2019-03-13 | Outpatient (CLI) | payer MEDICARE, MEDICAID ==
--- NOTE | 2019-03-13 10:42 | RADIOLOGY REPORT (SQ) ---
EXAM DESCRIPTION: KNEE LEFT 4 VIEW COMPLETED DATE/TIME: 03/13/2019 10:28 am REASON FOR STUDY: M25.562 PAIN IN LEFT KNEE COMPARISON: None. NUMBER OF VIEWS: Four views. TECHNIQUE: AP, lateral, and both oblique radiographic images acquired of the left knee. LIMITATIONS: None. FINDINGS: MINERALIZATION: Normal. BONES: No acute fracture or dislocation. No worrisome bone lesions. JOINT: No significant effusion. Chondrocalcinosis in the medial and lateral compartments. SOFT TISSUES: No soft tissue swelling. No radio-opaque foreign body. OTHER: No other significant finding. IMPRESSION: No evidence of acute bony abnormality. Chondrocalcinosis which can be seen with CPPD arthropathy, osteoarthritis among other things. No oth er additional significant degenerative change. TECHNICAL DOCUMENTATION: JOB ID: [id number] [employer]- All Rights Reserved Reading location - IP/workstation name: [email or web address]
--- NOTE | 2019-03-13 10:46 | RADIOLOGY REPORT (SQ) ---
EXAM DESCRIPTION: KNEE RIGHT 4 VIEWS COMPLETED DATE/TIME: 03/13/2019 10:28 am REASON FOR STUDY: M25.561 PAIN IN BOTH KNEES, UNSPECIFIED CHRONICITY COMPARISON: None. NUMBER OF VIEWS: Four views. TECHNIQUE: AP, lateral, and both oblique radiographic images acquired of the right knee. LIMITATIONS: None. FINDINGS: MINERALIZATION: Normal. BONES: No acute fracture or dislocation. No worrisome bone lesions. JOINT: No significant effusion. Chondrocalcinosis in the medial and lateral compartments. Joint spa stella are well maintained. SOFT TISSUES: No soft tissue swelling. No radio-opaque foreign body. OTHER: No other significant finding. IMPRESSION: No evidence of acute bony abnormality. Chondrocalcinosis which can be seen with CPPD arthropathy, osteoarthritis among other things. No oth er additional significant degenerative change. TECHNICAL DOCUMENTATION: JOB ID: [id number] [employer]- All Rights Reserved Reading location - IP/workstation name: [email or web address]
== END ==
LOC: RAD 09:50
PROVIDERS: ATTEND Family Medicine
DX: M11.261 Other chondrocalcinosis, right knee (principal); M25.562 Pain in left knee; M25.561 Pain in right knee

== ENCOUNTER 2019-06-01 11:07 | Inpatient (IN) | payer MEDICARE, MEDICAID ==
[2019-06-01] MEDS ORDERED: LOPERAMIDE HCL 2 MG CAPSULE PO ONE (11:26)
[2019-06-01] MEDS ORDERED: ONDANSETRON HCL INJ/PF 4 MG/2 ML SDV IV ONE (11:36)
[2019-06-01 12:01] LABS: APPEARANCE,URINE SLIGHTLY-CLOUDY; BILIRUBIN,URINE NEGATIVE (NEGATIVE); COLOR,URINE YELLOW; GLUCOSE, URINE NEGATIVE (NEGATIVE); KETONES,URINE TRACE mg/dL (NEGATIVE); LEUKOCYTE ESTERASE,URINE NEGATIVE (NEGATIVE); NITRITE,URINE NEGATIVE (NEGATIVE); PROTEIN,URINE 100 mg/dL (NEGATIVE); URINE SPECIFIC GRAVITY 1.018; UROBILINOGEN,URINE NEGATIVE mg/dL (<2.0)
--- NOTE | 2019-06-01 12:04 | ER Document Report ---
Entered by NAOMI MERCADO SCRIBE 06/01/19 1122 Acting as scribe for:JOON GRANDE MD ED General - General Stated Complaint: WEAKNESS Time Seen by Provider: 06/01/19 11:10 Primary Care Provider: STELLA MCLAUGHLIN DO [Primary Care Provider] - Follow up as needed Information source: Patient, Relative, Emergency Med Personnel Notes: Patient is a chronically ill 58-year-old female that presents to the emergency department today with complaints of nausea, vomiting, diarrhea, and crampy abdominal pain for the last x3 days. Spouse reports that the patient did seem a little confused this morning. at bedside states that she is having approximately x10 loose stools a day. states the vomiting stopped after the first day and she has not had any since. Patient is on pain management for chronic pancreatitis and "general pain". TRAVEL OUTSIDE OF THE [place] IN LAST 30 DAYS: No - Related Data Allergies/Adverse Reactions: codeine Allergy (Verified 08/18/18 20:59) pregabalin [From Lyrica] Allergy (Verified 12/13/18 21:02) Past Medical History - General Information source: Patient, Relative, Emergency Med Personnel, [facility] Records - Social History Smoking Status: Current Every Day Smoker Cigarette use (# per day): Yes - 3/4 ppd Chew tobacco use (# tins/day): No Smoking Education Provided: No Frequency of alcohol use: None Drug Abuse: None Lives with: Family Family History: Reviewed & Not Pertinent - Past Medical History Cardiac Medical History: Reports: Hx Hypercholesterolemia, Other - infra-renal abdominal aortic aneurysm Pulmonary Medical History: Reports: Hx COPD Malignancy Medical History: Reports: Hx Colorectal Cancer, Hx Ovarian Cancer, Hx Renal (Kidney) Cancer GI Medical History: Reports: Hx Gastroesophageal Reflux Disease, Hx Pancreatitis Musculoskeletal Medical History: Reports Hx Arthritis Psychiatric Medical History: Reports: Hx Depression Past Surgical History: Reports: Hx Abdominal Surgery - Partial colectomy with removal of an adhesed ovary due to colon cancer, Hx Cholecystectomy - part colectomy, malignancy, Hx Hysterectomy, Hx Kidney (Renal Surgery) - partial R nephrectomy, malignancy - Immunizations Hx Diphtheria, Pertussis, Tetanus Vaccination: Yes Review of Systems - Review of Systems Constitutional: No symptoms reported EENT: No symptoms reported Cardiovascular: No symptoms reported Respiratory: No symptoms reported Gastrointestinal: See HPI, Abdominal pain, Diarrhea, Nausea, Vomiting Genitourinary: No symptoms reported Female Genitourinary: No symptoms reported Musculoskeletal: No symptoms reported Skin: No symptoms reported Hematologic/Lymphatic: No symptoms reported Neurological/Psychological: No symptoms reported -: Yes All other systems reviewed and negative Physical Exam - Notes Notes: Physical Exam: General: Alert, cachectic, chronically ill appearing, appears much older than stated age. HEENT: Normocephalic. Atraumatic. PERRL. Extraocular movements intact. Oropharynx clear. Neck: Supple. Non-tender. Respiratory: No respiratory distress. Coarse breath sounds bilaterally. Cardiovascular: Regular rate and rhythm. Abdominal: Very thin. LLQ tenderness with guarding, spouse states patient always has pain in this location. No distension. Normal Bowel Sounds. Back: No gross abnormalities. Extremities: Moves all four extremities. Upper extremities: Normal inspection. Normal ROM. Lower extremities: Normal inspection. No edema. Normal ROM. Neurological: Normal cognition. AAOx4. Normal speech. Psychological: Normal affect. Normal Mood. Skin: Warm. Dry. Tattoos on lower extremities. Course - Re-evaluation Re-evalutation: 06/01/19 13:37 Patient is having a green, mucousy malodorous diarrhea. At this point the C. difficile toxin came back negative. WBCs are pending. Patient's BUN is elevated at 35, serum CO2 is 18, and the potassium is quite low at 2.3 - Laboratory Result Diagrams: 06/01/19 12:04 06/01/19 12:04 Laboratory results interpreted by me: 06/01/19 06/01/19 06/01/19 11:48 12:04 12:04 WBC 3.2 L RDW 14.5 H Plt Count 143 L Band Neutrophils % 7 H Lymphocytes % (Manual) 12 L Abs Lymphs (Manual) 0.4 L VBG pH VBG pCO2 VBG HCO3 Sodium 132.8 L Potassium 2.3 L* Carbon Dioxide 18 L BUN 35 H Est GFR (MDRD) Non-Af 57 L Total Protein 6.1 L Lipase < 10.0 L Urine Protein 100 H Urine Ketones TRACE H Urine Blood LARGE H Stool for White Cells 06/01/19 06/01/19 12:04 12:04 WBC RDW Plt Count Band Neutrophils % Lymphocytes % (Manual) Abs Lymphs (Manual) VBG pH 7.44 H VBG pCO2 28.4 L VBG HCO3 18.7 L Sodium Potassium Carbon Dioxide BUN Est GFR (MDRD) Non-Af Total Protein Lipase Urine Protein Urine Ketones Urine Blood Stool for White Cells FEW H - Diagnostic Test Radiology reviewed: Image reviewed, Reports reviewed - Chest x-ray is unremarkable - EKG Interpretation by Me EKG shows normal: Sinus rhythm, [place], Intervals, QRS Complexes, ST-T Waves Rate: Normal - 83 Rhythm: NSR - Consults Dr. Medeiros Time consulted: 13:55 Consulted provider: will come to ER Critical Care Note - Critical Care Note Total time excluding time spent on procedures (mins): 40 Discharge - Discharge Clinical Impression: Dehydration, Hypokalemia, Metabolic acidosis, Respiratory alkalosis, Hyponatremia, Chronic abdominal pain Diarrhea Qualifiers: Diarrhea type: unspecified type Qualified Code(s): R19.7 - Diarrhea, unspecified Abdominal pain Qualifiers: Abdominal location: left lower quadrant Qualified Code(s): R10.32 - Left lower quadrant pain Condition: Fair Disposition: ADMITTED INPATIENT Admitting Provider: Waldemar (Hospitalist) Unit Admitted: IMCU Referrals: STELLA MCLAUGHLIN DO [Primary Care Provider] - Follow up as needed Scribe Attestation: 06/01/19 14:18 I personally performed the services described in the documentation, reviewed and edited the documentation which was dictated to the scribe in my presence, and it accurately records my words and actions. I personally performed the services described in the documentation, reviewed and edited the documentation which was dictated to the scribe in my presence, and it accurately records my words and actions.
[2019-06-01 12:34] LABS: VENOUS BLOOD BASE EXCESS -3.9 mmol/L; VENOUS BLOOD HCO3 18.7 mmol/L (20-32); VENOUS BLOOD PCO2 28.4 mmHg (35-63); VENOUS BLOOD PH 7.44 (7.30-7.42)
[2019-06-01 12:49] LABS: HEMATOCRIT 41.7 % (36.0-47.0); HEMOGLOBIN 14.3 g/dL (12.0-15.5); MEAN CORPUSCULAR HEMOGLOBIN 29.9 pg (27.0-33.4); MEAN CORPUSCULAR HGB CONC 34.4 g/dL (32.0-36.0); MEAN CORPUSCULAR VOLUME 87 fl (80-97); PLATELET COUNT 143 10^3/uL (150-450); RED CELL DISTRIBUTION WIDTH 14.5 % (11.5-14.0); WHITE BLOOD COUNT 3.2 10^3/uL (4.0-10.5)
[2019-06-01 12:52] LABS: ALBUMIN 3.5 g/dL (3.5-5.0); ALKALINE PHOSPHATASE 92 U/L (38-126); ANION GAP 17 (5-19); ASPARTATE AMINO TRANSFERASE 25 U/L (14-36); BILIRUBIN,DIRECT 0.4 mg/dL (0.0-0.4); BILIRUBIN,TOTAL 0.5 mg/dL (0.2-1.3); BLOOD UREA NITROGEN 35 mg/dL (7-20); CALCIUM 8.9 mg/dL (8.4-10.2); CARBON DIOXIDE 18 mmol/L (22-30); CHLORIDE 98 mmol/L (98-107); CREATINE KINASE 35 U/L (30-135); GLUCOSE 104 mg/dL (75-110); TOTAL PROTEIN 6.1 g/dL (6.3-8.2)
[2019-06-01 12:56] LABS: POTASSIUM 2.3 mmol/L (3.6-5.0)
[2019-06-01] MEDS ORDERED: DEXTROSE 5%-LACTATED RINGERS 1,000 ML IV ONE (13:01)
[2019-06-01] MEDS ORDERED: POTASSI CL 20 MEQ/50 ML RIDER 20 MEQ/50 ML RTUPB IV ONE (13:01)
[2019-06-01] MEDS ORDERED: THIAMINE HCL INJ 200 MG/2 ML VIAL IV ONE (13:10)
[2019-06-01 13:18] LABS: ABSOLUTE LYMPHOCYTES# (MANUAL) 0.4 10^3/uL (0.5-4.7); ABSOLUTE MONOCYTES # (MANUAL) 0.4 10^3/uL (0.1-1.4); BAND NEUTROPHILS % (MANUAL) 7 % (3-5); BASOPHILS % (MANUAL) 0 % (0-2); EOSINOPHILS % (MANUAL) 1 % (0-6); LYMPHOCYTES % (MANUAL) 12 % (13-45); MONOCYTES % (MANUAL) 13 % (3-13); SEGMENTED NEUTROPHILS % (MAN) 67 % (42-78); TOTAL CELLS COUNTED 100
[2019-06-01 13:19] LABS: ANISOCYTOSIS SLIGHT
[2019-06-01 13:20] LABS: PLATELET COMMENT DECREASED; PLATELET LARGE PRESENT; POIKILOCYTOSIS SLIGHT; SCHISTOCYTES SLIGHT
--- NOTE | 2019-06-01 14:08 | RADIOLOGY REPORT (SQ) ---
EXAM DESCRIPTION: CHEST SINGLE VIEW COMPLETED DATE/TIME: 06/01/2019 2:00 pm REASON FOR STUDY: Diarrhea, dehydration, hypokalemia COMPARISON: None. EXAM PARAMETERS: NUMBER OF VIEWS: One view. TECHNIQUE: Single frontal radiographic view of the chest acquired. RADIATION DOSE: NA LIMITATIONS: None. FINDINGS: LUNGS AND PLEURA: No opacities, masses or pneumothorax. No pleural effusion. MEDIASTINUM AND HILAR STRUCTURES: No masses. Contour normal. HEART AND VASCULAR STRUCTURES: Heart normal in size. Normal vasculature. BONES: No acute findings. HARDWARE: None in the chest. OTHER: No other significant finding. IMPRESSION: NO ACUTE RADIOGRAPHIC FINDING IN THE CHEST. TECHNICAL DOCUMENTATION: JOB ID: [id number] [employer]- All Rights Reserved Reading location - IP/workstation name: [email or web address]
[2019-06-01 14:34] LABS: ARTERIAL BLOOD BASE EXCESS -5.2 mmol/L; ARTERIAL BLOOD FIO2 ROOM AIR; ARTERIAL BLOOD H2CO3 0.81 mmol/L (1.05-1.35); ARTERIAL BLOOD HCO3 17.4 mmol/L (20-24); ARTERIAL BLOOD O2 SATURATION 96.7 % (94-98); ARTERIAL BLOOD PCO2 26.9 mmHg (35-45); ARTERIAL BLOOD PH 7.43 (7.35-7.45); ARTERIAL BLOOD PO2 83.6 mmHg (80-100); ARTERIAL BLOOD TOTAL CO2 18.2 mmol/L (21-25)
--- NOTE | 2019-06-01 14:47 | PDOC H&P ---
History of Present Illness Admission Date/PCP: STELLA MCLAUGHLIN DO History of Present Illness: PETERSON MONTOYA is a 58 year old female patient with past medical history of coronary artery disease, hyperlipidemia, COPD, alcohol induced chronic pancreatitis, anxiety depression, history of colon CA in 2004 and status post partial colectomy and history of right kidney renal cell carcinoma in 2006 status post partial nephrectomy, tobacco dependence, infrarenal AAA, presented with chief complaint of altered mental status 1 day duration, and nausea and vomiting of 3 days duration. Since patient is confused brief history is obtained from her who is in the room during my encounter. states that the vomiting subsided on the next day but still she has watery nonbloody diarrhea very frequent. states eating out. The states that patient is sober but she smokes about half a pack a day. No reports of fever chills palpitation or diaphoresis. No urinary complaints. Her stool for C. difficile colitis is negative. Her CBC is unremarkable her BMP shows hypokalemia with potassium of 2.3. CT scan of the abdomen is pending. Past Medical History Cardiac Medical History: Reports: Coronary Artery Disease - AAA, Hyperlipidema, Other - infra-renal abdominal aortic aneurysm Denies: Myocardial Infarction, Hypertension Pulmonary Medical History: Reports: Chronic Obstructive Pulmonary Disease (COPD) Denies: Asthma, Bronchitis, Pneumonia Neurological Medical History: Denies: Seizures Malignancy Medical History: Reports: Colorectal Cancer, Ovarian Cancer, Renal (Kidney) Cancer GI Medical History: Reports: Gastroesophageal Reflux Disease Musculoskeltal Medical History: Reports: Arthritis Psychiatric Medical History: Reports: Depression Hematology: Denies: Anemia Past Surgical History Past Surgical History: Reports: Cholecystectomy - part colectomy, malignancy, Hysterectomy, Vascular Surgery, Other - Patient didremoved at Social History Lives with: Family Smoking Status: Current Every Day Smoker - Advance Directive Resuscitation Status: Full Code Family History Family History: Reviewed & Not Pertinent Parental Family History Reviewed: Yes Children Family History Reviewed: Yes Sibling(s) Family History Reviewed.: Yes Medication/Allergy Home Medications: Benztropine Mesylate 2 mg PO QHS 12/15/16 Clonazepam [Klonopin 1 mg Tablet] 0.5 mg PO BIDP PRN MDD 2 MG 12/15/16 Quetiapine Fumarate [Seroquel] 400 mg PO QHS 12/15/16 Simvastatin 40 mg PO QHS 12/15/16 Esomeprazole Magnesium 40 mg PO DAILY 06/01/19 Fluoxetine HCl [Prozac] 10 mg PO DAILY 06/01/19 Oxycodone HCl/Acetaminophen [Percocet 10-325 Mg Tablet] 1 each PO Q6HP PRN 06/01/19 Allergies/Adverse Reactions: codeine Allergy (Verified 08/18/18 20:59) pregabalin [From Lyrica] Allergy (Verified 12/13/18 21:02) Review of Systems ROS unobtainable: Due to mental status Physical Exam General appearance: PRESENT: no acute distress Head exam: PRESENT: atraumatic Eye exam: PRESENT: conjunctiva pink Mouth exam: PRESENT: dry mucosa Neck exam: ABSENT: carotid bruit, JVD, lymphadenopathy, thyromegaly Respiratory exam: PRESENT: clear to auscultation poonam. ABSENT: rales, rhonchi, wheezes Cardiovascular exam: PRESENT: RRR. ABSENT: diastolic murmur, rubs, systolic murmur GI/Abdominal exam: PRESENT: normal bowel sounds, soft. ABSENT: distended, guarding, mass, organolmegaly, rebound, tenderness Neurological exam: PRESENT: alert, altered, awake Psychiatric exam: PRESENT: depressed Results Laboratory Results: 06/01/19 12:04 06/01/19 12:04 06/01/19 06/01/19 06/01/19 11:48 12:04 12:04 WBC 3.2 L RBC 4.80 Hgb 14.3 Hct 41.7 MCV 87 MCH 29.9 MCHC 34.4 RDW 14.5 H Plt Count 143 L Seg Neutrophils % Not Reportable VBG pH VBG pCO2 VBG HCO3 VBG Base Excess Sodium 132.8 L Potassium 2.3 L* Chloride 98 Carbon Dioxide 18 L Anion Gap 17 BUN 35 H Creatinine 1.00 Est GFR ( Amer) > 60 Glucose 104 Lactic Acid Calcium 8.9 Magnesium 1.8 Total Bilirubin 0.5 AST 25 Alkaline Phosphatase 92 Total Protein 6.1 L Albumin 3.5 Lipase < 10.0 L Urine Color YELLOW Urine Appearance SLIGHTLY-CLOUDY Urine pH 6.0 Ur Specific [place] 1.018 Urine Protein 100 H Urine Glucose (UA) NEGATIVE Urine Ketones TRACE H Urine Blood LARGE H Urine Nitrite NEGATIVE Ur Leukocyte Esterase NEGATIVE Urine WBC (Auto) 3 Urine RBC (Auto) 32 Stool for White Cells 06/01/19 06/01/19 06/01/19 12:04 12:04 12:04 WBC RBC Hgb Hct MCV MCH MCHC RDW Plt Count Seg Neutrophils % VBG pH 7.44 H VBG pCO2 28.4 L VBG HCO3 18.7 L VBG Base Excess -3.9 Sodium Potassium Chloride Carbon Dioxide Anion Gap BUN Creatinine Est GFR ( Amer) Glucose Lactic Acid 0.7 Calcium Magnesium Total Bilirubin AST Alkaline Phosphatase Total Protein Albumin Lipase Urine Color Urine Appearance Urine pH Ur Specific [place] Urine Protein Urine Glucose (UA) Urine Ketones Urine Blood Urine Nitrite Ur Leukocyte Esterase Urine WBC (Auto) Urine RBC (Auto) Stool for White Cells FEW H 06/01/19 06/01/19 12:04 12:04 Creatine Kinase 35 Troponin I < 0.012 Impressions: Chest X-Ray 06/01/19 13:39 IMPRESSION: NO ACUTE RADIOGRAPHIC FINDING IN THE CHEST. Assessment and Plan - Diagnosis (1) Intractable diarrhea Is this a current diagnosis for this admission?: Yes Plan: Stool for C. difficile colitis is negative. Etiology is unclear. CT scan of the abdomen for possible colitis is pending. Patient is going to be hydrated appropriately. (2) Severe hypokalemia Is this a current diagnosis for this admission?: Yes Plan: Related to vomiting. Her potassium is being replaced. We will check her BMP in a.m. (3) Acute metabolic encephalopathy Is this a current diagnosis for this admission?: Yes Plan: Most probably related to her vomiting and diarrhea and severe hypokalemia. Treat underlying causes. (4) COPD (chronic obstructive pulmonary disease) Qualifiers: Emphysema type: unspecified Is this a current diagnosis for this admission?: Yes Plan: I will put her on PRN bronchodilators. (5) Chronic pancreatitis Qualifiers: Pancreatitis type: alcohol induced Qualified Code(s): K86.0 - Alcohol-ind uced chronic pancreatitis Is this a current diagnosis for this admission?: Yes Plan: Her lipase within normal limits. We will continue her pain medication. (6) Coronary artery disease Qualifiers: Associated angina: without angina Is this a current diagnosis for this admission?: Yes Plan: Continue home meds (7) Hypertension Qualifiers: Hypertension type: essential hypertension Qualified Code(s): I10 - Essential (primary) hypertension Is this a current diagnosis for this admission?: Yes Plan: Continue home meds (8) Tobacco dependence Is this a current diagnosis for this admission?: Yes Plan: Patient will be counseled and encouraged to quit smoking. Is a meantime we will put her on nicotine patch.
[2019-06-01] MEDS ORDERED: ONDANSETRON HCL INJ/PF 4 MG/2 ML SDV IV PRN (14:50)
[2019-06-01] MEDS ORDERED: IPRATROPIUM/ALBUTEROL 0.5-2.5 MG/3 ML AMPUL NEB PRN (14:50)
[2019-06-01] MEDS ORDERED: NICOTINE 14 MG/24 HR PATCH.TD24 TD ONE (14:57)
[2019-06-01] MEDS ORDERED: NICOTINE 14 MG/24 HR PATCH.TD24 TD PRN (14:57)
[2019-06-01] MEDS: RINGERS SOLUTION,LACTATED 1,000 ML IV PRN ×2 (15:31→22:34)
--- NOTE | 2019-06-01 18:15 | RADIOLOGY REPORT (SQ) ---
EXAM DESCRIPTION: CT ABD/PELVIS WITH IV ONLY COMPLETED DATE/TIME: 06/01/2019 5:03 pm REASON FOR STUDY: Diarrhea, abdominal pain COMPARISON: 08/18/2018. TECHNIQUE: CT scan of the abdomen and pelvis performed using helical scanning technique with dynamic intravenous contrast injection. No oral contrast. Images reviewed with lung, soft tissue, and bone windows. Reconstructed coronal and sagittal MPR images reviewed. Delayed images for evaluation of the urinary system also acquired. All images stored on PACS. All CT scanners at this facility use dose modulation, iterative reconstruction, and/or weight based d osing when appropriate to reduce radiation dose to as low as reasonably achievable (ALARA). [facility]: Dose Right [facility]: CareDose [facility]: Dose Right [facility]: Teradose 4D [facility]: [employer]ware CONTRAST TYPE AND DOSE: contrast/concentration: Isovue 350.00 mg/ml; Total Contrast Delivered: 65.0 ml; Total Saline Delivered: 65.0 ml RENAL FUNCTION: Creatinine: 1.0 RADIATION DOSE: CT Rad equipment meets quality standard of care and radiation dose reduction techniq ues were employed. CTDIvol: 2.5 - 3.0 mGy. DLP: 277 mGy-cm.. LIMITATIONS: None. FINDINGS: LOWER CHEST: No significant findings. No nodules or infiltrates. LIVER: The right lobe of the liver is prominent. Intrahepatic and extrahepatic biliary dilatation co nsistent with post cholecystectomy change. SPLEEN: The spleen is normal. Splenic granulomata noted. PANCREAS: No abnormality seen. GALLBLADDER: Status post cholecystectomy. Since the previous study there has been interval increase in intrahepatic and extrahepatic biliary dilatation. Clinical correlation with liver enzymes needed. Distal common bile duct measures 1.8 cm. No abnormality. No significant masses or asymmetry. RIGHT KIDNEY AND URETER: No abnormality. Radiopaque density along posterior cortex lower pole right kidney could represent postsurgical change. LEFT KIDNEY AND URETER: No abnormality. AORTA AND VESSELS: Diffuse atherosclerotic change of the abdominal aorta with evidence of and aneurys m mid abdominal aorta above the iliac bifurcation measuring 4.4 cm(T)x 4.1 cm (AP ) x 4.1 cm (L). Th e aneurysm extends to just above the iliac bifurcation. Atherosclerotic dilatation of the proximal r ight common iliac artery measuring 1.2 x 1.2 cm. Renal arteries, SMA, celiac without stenosis. RETROPERITONEUM: No retroperitoneal adenopathy, hemorrhage or masses. BOWEL AND PERITONEAL CAVITY: Status post right hemicolectomy. Anastomosis of distal small bowel to t ransverse colon with staple line noted. There is thickening of the mucosa of the distal small bowel proximal to its anastomosis to transverse colon with several focal segments of dilatation to 4.6 cm i n diameter(image 71/88 series 5). The possibility of changes secondary to enteritis given a history of diarrhea and a moderate amount of fluid within large and small bowel would be a consideration. Fo llow-up indicated to exclude the possibility of partial obstruction. Small mesenteric nodes are note d. APPENDIX: Status post appendectomy. PELVIS: Status post hysterectomy. ABDOMINAL WALL: No masses. No hernias. BONES: No significant or acute findings. IMPRESSION: 1. Status post right hemicolectomy with ileocolic anastomosis. Since the previous stud y there has been development of thickening of mucosa of multiple loops of distal small bowel with a m oderate amount of fluid noted in large and small bowel. The possibility of an enteritis must be cons idered. In addition given dilatation of small bowel loops follow-up indicated to exclude partial obs truction. 2. Since previous study there is been increase in intrahepatic and extrahepatic biliary dilatation. Clinical correlation with liver enzymes indicated. 3. There is again evidence of an infrarenal abdominal aortic aneurysm measuring 4 x 4.1 by 4.1 cm. AAA Size: Follow-up Recommendation 4.0-4.4 cm Every 12 months, vascular consultation recommended *Based upon the Society for Vascular Surgery Guidelines: J Vasc Surg. 2009 Jul;50(4 Suppl):S2-49 *For aortas of maximum diameter of 2.6-2.9 cm meeting the criteria for AAA (?1.5 x proximal normal se gment) TECHNICAL DOCUMENTATION: JOB ID: [id number] Quality ID # [id number]: Final reports with documentation of one or more dose reduction techniques (e.g., Au tomated exposure control, adjustment of the mA and/or kV according to patient size, use of iterative reconstruction technique) 2010 [employer]- All Rights Reserved Reading location - IP/workstation name: [email or web address]
--- NOTE | 2019-06-01 19:09 | EKG REPORT ---
SEVERITY:- NORMAL ECG - SINUS RHYTHM : Confirmed by: Sanjana Villanueva MD 01-Jun-2019 19:08:43
[2019-06-01] MEDS: POTASSIUM CHLORIDE 20 MEQ/50 ML RTU IV SCH ×2 (20:11→21:53)
[2019-06-01] MEDS: FAMOTIDINE 20 MG TABLET PO SCH (21:39)
[2019-06-01] MEDS: QUETIAPINE FUMARATE 100 MG TABLET PO SCH (21:39)
[2019-06-01] MEDS: SIMVASTATIN 40 MG TABLET PO SCH (21:39)
[2019-06-01] MEDS ORDERED: CLONAZEPAM 1 MG TABLET PO SCH (22:00)
[2019-06-01] MEDS ORDERED: BENZTROPINE MESYLATE 1 MG TABLET PO SCH (22:00)
[2019-06-02] MEDS: POTASSIUM CHLORIDE 20 MEQ/50 ML RTU IV SCH ×4 (00:06→10:21)
[2019-06-02 05:11] LABS: ABSOLUTE LYMPHOCYTES (AUTO) 0.4 10^3/uL (0.5-4.7); ABSOLUTE MONOCYTES (AUTO) 0.3 10^3/uL (0.1-1.4); ABSOLUTE NEUT (AUTO) 2.8 10^3/uL (1.7-8.2); BASOPHILS % (AUTO) 0.1 % (0-2); EOSINOPHILS % (AUTO) 0.2 % (0-6); HEMATOCRIT 38.4 % (36.0-47.0); HEMOGLOBIN 13.5 g/dL (12.0-15.5); LYMPHOCYTES % (AUTO) 10.3 % (13-45); MEAN CORPUSCULAR HEMOGLOBIN 29.9 pg (27.0-33.4); MEAN CORPUSCULAR HGB CONC 35.2 g/dL (32.0-36.0); MEAN CORPUSCULAR VOLUME 85 fl (80-97); MONOCYTES % (AUTO) 9.3 % (3-13); PLATELET COUNT 113 10^3/uL (150-450); RED BLOOD COUNT 4.52 10^6/uL (3.72-5.28); RED CELL DISTRIBUTION WIDTH 14.6 % (11.5-14.0); SEGMENTED NEUTROPHILS % (AUTO) 80.1 % (42-78); TOTAL CELLS COUNTED % (AUTO) 100 %; WHITE BLOOD COUNT 3.5 10^3/uL (4.0-10.5)
[2019-06-02 05:25] LABS: ANION GAP 9 (5-19); CALCIUM 8.5 mg/dL (8.4-10.2); CARBON DIOXIDE 22 mmol/L (22-30); CHLORIDE 101 mmol/L (98-107); GLUCOSE 101 mg/dL (75-110)
[2019-06-02 05:28] LABS: POTASSIUM 2.9 mmol/L (3.6-5.0)
[2019-06-02 05:29] LABS: BLOOD UREA NITROGEN 14 mg/dL (7-20)
[2019-06-02] MEDS: RINGERS SOLUTION,LACTATED 1,000 ML IV PRN ×3 (06:14→17:29)
[2019-06-02] MEDS: OXYCODONE-ACETAMINOPHEN 5-325 MG TABLET PO PRN ×3 (06:56→16:10)
[2019-06-02] MEDS ORDERED: (PENDING PHARMACY ID) (Oxycodone Hcl/Acetaminophen [Percocet 10-325 Mg Tablet] 1 EACH) PO PRN (07:38)
[2019-06-02] MEDS ORDERED: (PENDING PHARMACY ID) (Esomeprazole Magnesium [Esomeprazole Magnesium] 40 MG) PO SCH ×2 (10:00)
[2019-06-02] MEDS: ENOXAPARIN SODIUM INJ 40 MG/0.4 ML DISP.SYRIN SUBCUT SCH (10:20)
[2019-06-02] MEDS: FAMOTIDINE 20 MG TABLET PO SCH ×2 (10:20→21:21)
[2019-06-02] MEDS: FLUOXETINE HCL 20 MG/5 ML UDCUP PO SCH (11:45)
[2019-06-02] MEDS: PANTOPRAZOLE SODIUM 40 MG TABLET.DR PO SCH (11:45)
--- NOTE | 2019-06-02 14:14 | PDOC PROGRESS REPORT ---
Subjective Progress Note for:: 06/02/19 Subjective:: PETERSON MONTOYA is a 58 year old female patient with past medical history of coronary artery disease, hyperlipidemia, COPD, alcohol induced chronic pancreatitis, anxiety depression, history of colon CA in 2004 and status post partial colectomy and history of right kidney renal cell carcinoma in 2006 status post partial nephrectomy, tobacco dependence, infrarenal AAA, presented with chief complaint of altered mental status 1 day duration, and nausea and vomiting of 3 days duration. Since patient is confused brief history is obtained from her who is in the room during my encounter. states that the vomiting subsided on the next day but still she has watery nonbloody diarrhea very frequent. states eating out. The states that patient is sober but she smokes about half a pack a day. No reports of fever chills palpitation or diaphoresis. No urinary complaints. Her stool for C. difficile colitis is negative. Her CBC is unremarkable her BMP shows hypokalemia with potassium of 2.3. CT scan of the abdomen is pending. 06/02/2019: Patient seen and examined while resting in bed. She is more awake alert but still she has some confusion. The frequency of her diarrhea is decreasing. Her potassium dropped further from 2.32.2 and the final was 2.9. Additional keratitis ordered. I reviewed her home medication and reconciled. Her CT scan of the abdomen reported as status post right hemicolectomy with ileocolic anastomosis since the previous study there has been development of thickening of mucosa of multiple loops of distal small bowel with a moderate amount of fluid noted in the large and small bowel. The possibility of an enteritis mass to be considered. In addition given dilation of small bowel loo ps follow-up indicated to exclude partial obstruction. Reason For Visit: SEVERE HYPOKALEMIA, INTRACTABLE DIARRHEA Physical Exam Vital Signs: Temp Pulse Resp BP Pulse Ox 97.9 F 89 18 125/82 97 06/02/19 12:05 06/02/19 12:05 06/02/19 12:05 06/02/19 12:05 06/02/19 12:05 Intake & Output 06/01/19 06/02/19 06/03/19 06:59 06:59 06:59 Intake Total 3513 725 Output Total 500 Balance 3513 225 Weight 53.6 kg General appearance: PRESENT: no acute distress Head exam: PRESENT: atraumatic Eye exam: PRESENT: conjunctiva pink Neck exam: ABSENT: carotid bruit, JVD, lymphadenopathy, thyromegaly Respiratory exam: PRESENT: clear to auscultation poonam. ABSENT: rales, rhonchi, wheezes Cardiovascular exam: PRESENT: RRR. ABSENT: diastolic murmur, rubs, systolic murmur Neurological exam: PRESENT: alert, awake Results Laboratory Results: 06/02/19 04:26 06/02/19 04:26 06/01/19 06/01/19 06/02/19 13:56 18:10 04:26 WBC 3.5 L RBC 4.52 Hgb 13.5 Hct 38.4 MCV 85 MCH 29.9 MCHC 35.2 RDW 14.6 H Plt Count 113 L Seg Neutrophils % 80.1 H Carbonic Acid 0.81 L HCO3/H2CO3 Ratio 21:1 ABG pH 7.43 ABG pCO2 26.9 L ABG pO2 83.6 ABG HCO3 17.4 L ABG O2 Saturation 96.7 ABG Base Excess -5.2 FiO2 ROOM AIR Sodium Potassium 2.2 L* Chloride Carbon Dioxide Anion Gap BUN Creatinine Est GFR ( Amer) Glucose Calcium 06/02/19 04:26 WBC RBC Hgb Hct MCV MCH MCHC RDW Plt Count Seg Neutrophils % Carbonic Acid HCO3/H2CO3 Ratio ABG pH ABG pCO2 ABG pO2 ABG HCO3 ABG O2 Saturation ABG Base Excess FiO2 Sodium 131.5 L Potassium 2.9 L* Chloride 101 Carbon Dioxide 22 Anion Gap 9 BUN 14 D Creatinine 0.54 Est GFR ( Amer) > 60 Glucose 101 Calcium 8.5 06/01/19 06/01/19 12:04 12:04 Creatine Kinase 35 Troponin I < 0.012 Impressions: Chest X-Ray 06/01/19 13:39 IMPRESSION: NO ACUTE RADIOGRAPHIC FINDING IN THE CHEST. Abdomen/Pelvis CT 06/01/19 14:16 IMPRESSION: 1. Status post right hemicolectomy with ileocolic anastomosis. Si nce the previous study there has been development of thickening of mucosa of multiple loops of distal small bowel with a moderate amount of fluid noted in large and small bowel. The possibility of an enteritis must be considered. In addition given dilatation of small bowel loops follow-up indicated to exclude partial obstruction. 2. Since previous study there is been increase in intrahepatic and extrahepatic biliary dilatation. Clinical correlation with liver enzymes indicated. 3. There is again evidence of an infrarenal abdominal aortic aneurysm measuring 4 x 4.1 by 4.1 cm. AAA Size: Follow-up Recommendation 4.0-4.4 cm Every 12 months, vascular consultation recommended *Based upon the Society for Vascular Surgery Guidelines: J Vasc Surg. 2009 Jul;50(4 Suppl):S2-49 *For aortas of maximum diameter of 2.6-2.9 cm meeting the criteria for AAA (?1.5 x proximal normal segment) Assessment and Plan - Diagnosis (1) Intractable diarrhea Is this a current diagnosis for this admission?: Yes Plan: The frequency of her diarrhea has been decreasing (2) Severe hypokalemia Is this a current diagnosis for this admission?: Yes Plan: Her latest potassium level is 2.9. Still patient needs additional K riders. (3) Acute metabolic encephalopathy Is this a current diagnosis for this admission?: Yes Plan: Relatively better. (4) COPD (chronic obstructive pulmonary disease) Qualifiers: Emphysema type: unspecified Is this a current diagnosis for this admission?: Yes Plan: I will put her on PRN bronchodilators. (5) Chronic pancreatitis Qualifiers: Pancreatitis type: alcohol induced Qualified Code(s): K86.0 - Alcohol- induced chronic pancreatitis Is this a current diagnosis for this admission?: Yes Plan: Her lipase within normal limits. We will continue her pain medication. (6) Coronary artery disease Qualifiers: Associated angina: without angina Is this a current diagnosis for this admission?: Yes Plan: Continue home meds (7) Hypertension Qualifiers: Hypertension type: essential hypertension Qualified Code(s): I10 - Essential (primary) hypertension Is this a current diagnosis for this admission?: Yes Plan: Continue home meds (8) Tobacco dependence Is this a current diagnosis for this admission?: Yes Plan: Patient will be counseled and encouraged to quit smoking. Is a meantime we will put her on nicotine patch.
[2019-06-02] MEDS: QUETIAPINE FUMARATE 100 MG TABLET PO SCH (21:21)
[2019-06-02] MEDS: SIMVASTATIN 40 MG TABLET PO SCH (21:21)
[2019-06-02] MEDS ORDERED: BENZTROPINE MESYLATE 1 MG TABLET PO SCH (22:00)
[2019-06-02] MEDS ORDERED: (PENDING PHARMACY ID) (Quetiapine Fumarate [Seroquel] 400 MG) PO SCH (22:00)
[2019-06-02] MEDS ORDERED: CLONAZEPAM 1 MG TABLET PO SCH (22:00)
[2019-06-02] MEDS ORDERED: (PENDING PHARMACY ID) (Simvastatin [Simvastatin] 40 MG) PO SCH (22:00)
[2019-06-03] MEDS ORDERED: LEVALBUTEROL HCL NEB 0.63 MG/3 ML AMPUL NEB PRN (02:43)
[2019-06-03] MEDS ORDERED: ACETAMINOPHEN 325 MG TABLET PO PRN (02:43)
[2019-06-03] MEDS: RINGERS SOLUTION,LACTATED 1,000 ML IV PRN ×3 (03:00→22:44)
[2019-06-03] MEDS: MORPHINE SULFATE 10 MG/ML INJ IV PRN ×3 (03:18→21:23)
[2019-06-03 03:23] LABS: HEMATOCRIT 39.3 % (36.0-47.0); HEMOGLOBIN 13.7 g/dL (12.0-15.5); MEAN CORPUSCULAR HEMOGLOBIN 29.7 pg (27.0-33.4); MEAN CORPUSCULAR HGB CONC 34.8 g/dL (32.0-36.0); MEAN CORPUSCULAR VOLUME 86 fl (80-97); PLATELET COUNT 110 10^3/uL (150-450); RED CELL DISTRIBUTION WIDTH 14.8 % (11.5-14.0); WHITE BLOOD COUNT 6.8 10^3/uL (4.0-10.5)
[2019-06-03 03:37] LABS: ALBUMIN 2.5 g/dL (3.5-5.0); ALKALINE PHOSPHATASE 101 U/L (38-126); ANION GAP 10 (5-19); ASPARTATE AMINO TRANSFERASE 30 U/L (14-36); BILIRUBIN,DIRECT 0.5 mg/dL (0.0-0.4); BILIRUBIN,TOTAL 0.8 mg/dL (0.2-1.3); BLOOD UREA NITROGEN 11 mg/dL (7-20); CALCIUM 8.5 mg/dL (8.4-10.2); CARBON DIOXIDE 21 mmol/L (22-30); CHLORIDE 102 mmol/L (98-107); GLUCOSE 106 mg/dL (75-110); POTASSIUM 3.3 mmol/L (3.6-5.0); TOTAL PROTEIN 4.8 g/dL (6.3-8.2)
--- NOTE | 2019-06-03 04:33 | RADIOLOGY REPORT (SQ) ---
EXAM DESCRIPTION: CT CHEST ANGIOGRAPHY WITHOUT THEN WITH IV CONTRAST COMPLETED DATE/TME: 06/03/2019 00:00 CLINICAL HISTORY: 58 years, Female, acute onset tachypnea COMPARISON: 12/11/2018 CTA chest TECHNIQUE: 736 Images stored on PACS. All CT scanners at this facility use dose modulation, iterative reconstruction, and/or weight based dosing when appropriate to reduce radiation dose to as low as reasonably achievable (ALARA). 736 axial images were obtained with coronal and sagittal MIPS [facility]: Dose Right [facility]: CareDose [facility]: Dose Right [facility]: Teradose 4D [facility]: [employer] LIMITATIONS: None. FINDINGS: The visualized thyroid gland enhances normally. Contrast bolus is nearly nondiagnostic, with minimal opacification of the pulmonary arterial tree. No large or central pulmonary embolus. Stable mild ectasia of the ascending thoracic aorta, measuring 3.5 x 3.1 cm. Calcified mediastinal lymph nodes. Mild distention of the esophagus which is fluid-filled and thick-walled. Distal esophageal stricture is not excluded, however there is fluid in the stomach. Partial visualization of biliary ductal dilatation and ascites. Limited evaluation of the upper abdomen also demonstrates air in the region of the wall of the small bowel in the right upper quadrant. This is incompletely assessed on this exam. Recommend follow-up with dedicated abdomen/pelvis CT. Small bibasilar pleural effusions. Osseous structures are grossly intact. No pneumothorax. Minor consolidative changes in each lung base. IMPRESSION: Nearly nondiagnostic exam for the assessment of pulmonary embolus. No large or central pulmonary embolus. Small bibasilar effusions with adjacent consolidation. Mild distention of the esophagus with food/debris in the esophagus. Partial visualization of dilated fluid-filled loop of small bowel in the right upper quadrant. Question air/pneumatosis associated with the wall of the small bowel in the right upper quadrant. Recommend further assessment with dedicated CT abdomen/pelvis. Small amount of ascites. TECHNICAL DOCUMENTATION: Quality ID # 436: Final reports with documentation of one or more dose reduction techniques (e.g., Automated exposure control, adjustment of the mA and/or kV according to patient size, use of iterative reconstruction technique) copyright 2010 [employer]- All Rights Reserved
--- NOTE | 2019-06-03 05:55 | Progress Note ---
Provider Note Provider Note: Critical care: 06/03/2019 03:39 Nursing staff is noted to be patient was having significant tachypnea which had not been previously present. She seemed to be in minimal respiratory distress but was tachypneic and did complain of mild dyspnea. Patient is somewhat confused/demented and is not a reliable historian, however her is in the room and does indicate that her respiratory rate is significantly increased from last night and earlier today. The respiratory rate in his opinion stays significantly elevated even while she is sleeping which was also the observation of her nurse. Examination showed her chest to be essentially clear on auscultation with the exception of decreased breath sounds at the bilateral bases and some dullness to percussion also in the bilateral bases. Patient was noted to be tachypneic at the time of my evaluation. A discussion with the patient and her ensued concerning evaluation of her problem laboratory work has been ordered and a CTA of her chest will be obtained. Upon return of the CTA results patient and her were informed that the CTA was negative for a pulmonary embolus. It is my opinion that the most likely cause of the patient's symptoms is anxiety or agitation related to her mental status. End critical care: 04:14
[2019-06-03] MEDS: IPRATROPIUM BROMIDE 0.02% NEB 0.5 MG/2.5 ML AMPUL NEB SCH ×2 (07:33→15:32)
[2019-06-03] MEDS: LEVALBUTEROL HCL NEB 1.25 MG/3 ML AMPUL NEB SCH ×2 (07:33→15:32)
[2019-06-03] MEDS: ENOXAPARIN SODIUM INJ 40 MG/0.4 ML DISP.SYRIN SUBCUT SCH (09:47)
[2019-06-03] MEDS: PANTOPRAZOLE SODIUM 40 MG TABLET.DR PO SCH (09:49)
[2019-06-03] MEDS: FLUOXETINE HCL 20 MG/5 ML UDCUP PO SCH (09:49)
[2019-06-03] MEDS: FAMOTIDINE 20 MG TABLET PO SCH (09:49)
[2019-06-03] MEDS: NICOTINE 21 MG/24 HR PATCH.TD24 TD PRN (09:54)
[2019-06-03] MEDS: ONDANSETRON HCL INJ/PF 4 MG/2 ML SDV IV PRN (16:05)
--- NOTE | 2019-06-03 17:20 | PDOC PROGRESS REPORT ---
Subjective Subjective:: PETERSON MONTOYA is a 58 year old female patient with past medical history of coronary artery disease, hyperlipidemia, COPD, alcohol induced chronic pancreatitis, anxiety depression, history of colon CA in 2004 and status post partial colectomy and history of right kidney renal cell carcinoma in 2006 status post partial nephrectomy, tobacco dependence, infrarenal AAA, presented with chief complaint of altered mental status 1 day duration, and nausea and vomiting of 3 days duration. Since patient is confused brief history is obtained from her who is in the room during my encounter. states that the vomiting subsided on the next day but still she has watery nonbloody diarrhea very frequent. states eating out. The states that patient is sober but she smokes about half a pack a day. No reports of fever chills palpitation or diaphoresis. No urinary complaints. Her stool f or C. difficile colitis is negative. Her CBC is unremarkable her BMP shows hypokalemia with potassium of 2.3. CT scan of the abdomen is pending. 06/02/2019: Patient seen and examined while resting in bed. She is more awake alert but still she has some confusion. The frequency of her diarrhea is decreasing. Her potassium dropped further from 2.32.2 and the final was 2.9. Additional keratitis ordered. I reviewed her home medication and reconciled. Her CT scan of the abdomen reported as status post right hemicolectomy with ileocolic anastomosis since the previous study there has been development of thickening of mucosa of multiple loops of distal small bowel with a moderate amount of fluid noted in the large and small bowel. The possibility of an enteritis mass to be considered. In addition given dilation of small bowel loops follow-up indicated to exclude partial obstruction. 06/03/2019: Patient is a awake alert and she is mildly confused. Yesterday night patient had an episode of tachycardia douglas and tachycardia and local physician requested CTA of the chest and acute pulmonary embolism has been ruled out. This morning patient seen lying in bed she has abdominal distention and it is tympanic to percussion. Dr. Atkins communicated with me that patient has small bowel dilation. Dr. Ortiz also evaluating the patient for possible partial intestinal obstruction. Her potassium is improving. Reason For Visit: SEVERE HYPOKALEMIA, INTRACTABLE DIARRHEA Physical Exam Vital Signs: Temp Pulse Resp BP Pulse Ox 97.9 F 106 H 18 100/63 93 06/03/19 15:50 06/03/19 15:50 06/03/19 15:50 06/03/19 15:50 06/03/19 15:50 Intake & Output 06/02/19 06/03/19 06/04/19 06:59 06:59 06:59 Intake Total 3513 2775 1000 Output Total 500 Balance 3513 2275 1000 Weight 53.6 kg 57 kg Results Laboratory Results: 06/03/19 03:14 06/03/19 03:14 06/03/19 06/03/19 06/03/19 03:14 03:14 03:14 WBC 6.8 RBC 4.60 Hgb 13.7 Hct 39.3 MCV 86 MCH 29.7 MCHC 34.8 RDW 14.8 H Plt Count 110 L Sodium 132.6 L Potassium 3.3 L Chloride 102 Carbon Dioxide 21 L Anion Gap 10 BUN 11 Creatinine 0.42 L Est GFR ( Amer) > 60 Glucose 106 Calcium 8.5 Magnesium 1.4 L Total Bilirubin 0.8 AST 30 Alkaline Phosphatase 101 Total Protein 4.8 L Albumin 2.5 L 06/01/19 06/01/19 12:04 12:04 Creatine Kinase 35 Troponin I < 0.012 Impressions: Chest X-Ray 06/01/19 13:39 IMPRESSION: NO ACUTE RADIOGRAPHIC FINDING IN THE CHEST. Abdomen/Pelvis CT 06/01/19 14:16 IMPRESSION: 1. Status post right hemicolectomy with ileocolic anastomosis. Since the previous study there has been development of thickening of mucosa of multiple loops of distal small bowel with a moderate amount of fluid noted in large and small bowel. The possibility of an enteritis must be considered. In addition given dilatation of small bowel loops follow-up indicated to exclude partial obstruction. 2. Since previous study there is been increase in intrahepatic and extrahepatic biliary dilatation. Clinical correlation with liver enzymes indicated. 3. There is again evidence of an infrarenal abdominal aortic aneurysm measuring 4 x 4.1 by 4.1 cm. AAA Size: Follow-up Recommendation 4.0-4.4 cm Every 12 months, vascular consultation recommended *Based upon the Society for Vascular Surgery Guidelines: J Vasc Surg. 2009 Jul;50(4 Suppl):S2-49 *For aortas of maximum diameter of 2.6-2.9 cm meeting the criteria for AAA (?1.5 x proximal normal segment) Chest/Abdomen CTA 06/03/19 00:00 IMPRESSION: Nearly nondiagnostic exam for the assessment of pulmonary embolus. No large or central pulmonary embolus. Small bibasilar effusions with adjacent consolidation. Mild distention of the esophagus with food/debris in the esophagus. Partial visualization of dilated fluid-filled loop of small bowel in the right upper quadrant. Question air/pneumatosis associated with the wall of the small bowel in the right upper quadrant. Recommend further assessment with dedicated CT abdomen/pelvis. Small amount of ascites. TECHNICAL DOCUMENTATION: Quality ID # 436: Final reports with documentation of one or more dose reduction techniques (e.g., Automated exposure control, adjustment of the mA and/or kV according to patient size, use of iterative reconstruction technique) copyright 2011 [employer]- All Rights Reserved Assessment and Plan - Diagnosis (1) Intractable diarrhea Is this a current diagnosis for this admission?: Yes Plan: Has subsiding. Currently patient developed abdominal distention. (2) Severe hypokalemia Is this a current diagnosis for this admission?: Yes Plan: Improving (3) Acute metabolic encephalopathy Is this a current diagnosis for this admission?: Yes Plan: Patient still have some confusion. Which might be related to her underlying psychiatric disorder. (4) COPD (chronic obstructive pulmonary disease) Qualifiers: Emphysema type: unspecified Is this a current diagnosis for this admission?: Yes Plan: I will put her on PRN bronchodilators. (5) Chronic pancreatitis Qualifiers: Pancreatitis type: alcohol induced Qualified Code(s): K86.0 - Alcohol- induced chronic pancreatitis Is this a current diagnosis for this admission?: Yes Plan: Her lipase within normal limits. We will continue her pain medication. (6) Coronary artery disease Qualifiers: Associated angina: without angina Is this a current diagnosis for this admission?: Yes Plan: Continue home meds (7) Hypertension Qualifiers: Hypertension type: essential hypertension Qualified Code(s): I10 - Essential (primary) hypertension Is this a current diagnosis for this admission?: Yes Plan: Continue home meds (8) Tobacco dependence Is this a current diagnosis for this admission?: Yes Plan: Patient will be counseled and encouraged to quit smoking. Is a meantime we will put her on nicotine patch.
--- NOTE | 2019-06-03 17:36 | PDOC CONSULTATION ---
Consultation Consult Date: 06/03/19 Attending physician:: janice Provider Consulted: JING HUSSEIN Consult reason:: Abdominal distention History of Present Illness Admission Date/PCP: 06/01/19 14:44 STELLA MCLAUGHLIN DO History of Present Illness: PETERSON MONTOYA is a 58 year old female Presents emergency department 3 days ago complaining of abdominal pain nausea vomiting diarrhea. Patient poor historian, with the HPI provided by patient's who is sketchy on all the details. Apparently the patient has a long history of abdominal pain nausea vomiting. She has had upper lower endoscopy by Dr. Brewster in December 2016 with findings of mild inflammation and mild gastropathy. She is 14 years status post right hemicolectomy, [facility], [place] for localized malignancy of the right colon. She said no complications from that operation. She has had upper and lower endoscopy by Dr. Migue Chang within the past year as well as upper and lower endoscopy at [facility]; none of those records are available to us at the time of this dictation. During the patient's hospitalization she was treated for hypokalemia, acute exacerbation of chronic psychiatric condition, diarrhea. Her recent CT scan showed dilated loops of small bowel and colonic lumen, with thickened bowel wall, however due to absence of oral contrast, a small bowel obstruction could not be ruled out. She clinically improved, however the last day developed more abdominal distention nausea and vomiting. An upper GI and small bowel follow-through demonstrates dilated stomach, and proximal small bowel concerning for partial small bowel obstruction. She has a long history of alcohol induced pancreatitis; she is status post cholecystectomy. Surgery was consulted for acute abdomen. Past Medical History Cardiac Medical History: Reports: Coronary Artery Disease - AAA, Hyperlipidema, Other - infra-renal abdominal aortic aneurysm Denies: Myocardial Infarction, Hypertension Pulmonary Medical History: Reports: Chronic Obstructive Pulmonary Disease (COPD) Denies: Asthma, Bronchitis, Pneumonia Neurological Medical History: Denies: Seizures Malignancy Medical History: Reports: Colorectal Cancer, Ovarian Cancer, Renal (Kidney) Cancer GI Medical History: Reports: Gastroesophageal Reflux Disease Musculoskeltal Medical History: Reports: Arthritis Psychiatric Medical History: Reports: Depression Hematology: Denies: Anemia Past Surgical History Past Surgical History: As per HPI Past Surgical History: Reports: Cholecystectomy - part colectomy, malignancy, Hysterectomy, Vascular Surgery, Other - Patient didremoved at Social History Lives with: Family Smoking Status: Current Every Day Smoker Cigarettes Packs Per Day: 1 Number of Years Smokin Frequency of Alcohol Use: None Hx Recreational Drug Use: No Drugs: None Hx Prescription Drug Abuse: No - Advance Directive Resuscitation Status: Full Code Family History Family History: Reviewed & Not Pertinent Parental Family History Reviewed: No Children Family History Reviewed: NA Sibling(s) Family History Reviewed.: NA Medication/Allergy Home Medications: Benztropine Mesylate 2 mg PO QHS 12/15/16 Clonazepam [Klonopin 1 mg Tablet] 1 mg PO QHS 12/15/16 Quetiapine Fumarate [Seroquel] 400 mg PO QHS 12/15/16 Simvastatin 40 mg PO QHS 12/15/16 Esomeprazole Magnesium 40 mg PO DAILY 06/01/19 Fluoxetine HCl [Prozac] 10 mg PO DAILY 06/01/19 Oxycodone HCl/Acetaminophen [Percocet 10-325 Mg Tablet] 1 each PO Q6HP PRN 06/01/19 Ranitidine HCl [Zantac] 300 mg PO QHS 06/01/19 Allergies/Adverse Reactions: codeine Allergy (Verified 08/18/18 20:59) pregabalin [From Lyrica] Allergy (Verified 12/13/18 21:02) Review of Systems ROS unobtainable: Due to mental status, Other - Patient cannot fully answer questions regarding her review of systems Physical Exam Vital Signs: Temp Pulse Resp BP Pulse Ox 97.9 F 106 H 18 100/63 93 06/03/19 15:50 06/03/19 15:50 06/03/19 15:50 06/03/19 15:50 06/03/19 15:50 Intake & Output 06/02/19 06/03/19 06/04/19 06:59 06:59 06:59 Intake Total 3513 2775 1000 Output Total 500 Balance 3513 2275 1000 Weight 53.6 kg 57 kg General appearance: PRESENT: mild distress Head exam: PRESENT: normocephalic Mouth exam: PRESENT: dry mucosa Neck exam: PRESENT: other - Trachea midline Respiratory exam: PRESENT: rhonchi Cardiovascular exam: PRESENT: RRR Pulses: PRESENT: normal carotid pulses, normal femoral pulses GI/Abdominal exam: PRESENT: other - Distended abdomen with mild tympany diffuse low grade guarding. Scars well-healed midline; no groin hernias. Rectal exam: PRESENT: deferred Extremities exam: PRESENT: full ROM, other - Extremities very thin with cachexia Neurological exam: PRESENT: other - Is disoriented to person place and time and situation Psychiatric exam: PRESENT: agitated - Agitated, other Results Laboratory Results: 06/03/19 03:14 06/03/19 03:14 06/03/19 06/03/19 06/03/19 03:14 03:14 03:14 WBC 6.8 RBC 4.60 Hgb 13.7 Hct 39.3 MCV 86 MCH 29.7 MCHC 34.8 RDW 14.8 H Plt Count 110 L Sodium 132.6 L Potassium 3.3 L Chloride 102 Carbon Dioxide 21 L Anion Gap 10 BUN 11 Creatinine 0.42 L Est GFR ( Amer) > 60 Glucose 106 Calcium 8.5 Magnesium 1.4 L Total Bilirubin 0.8 AST 30 Alkaline Phosphatase 101 Total Protein 4.8 L Albumin 2.5 L 06/01/19 06/01/19 12:04 12:04 Creatine Kinase 35 Troponin I < 0.012 Impressions: Chest X-Ray 06/01/19 13:39 IMPRESSION: NO ACUTE RADIOGRAPHIC FINDING IN THE CHEST. Abdomen/Pelvis CT 06/01/19 14:16 IMPRESSION: 1. Status post right hemicolectomy with ileocolic anastomosis. Since the previous study there has been development of thickening of mucosa of multiple loops of distal small bowel with a moderate amount of fluid noted in large and small bowel. The possibility of an enteritis must be considered. In addition given dilatation of small bowel loops follow-up indicated to exclude partial obstruction. 2. Since previous study there is been increase in intrahepatic and extrahepatic biliary dilatation. Clinical correlation with liver enzymes indicated. 3. There is again evidence of an infrarenal abdominal aortic aneurysm measuring 4 x 4.1 by 4.1 cm. AAA Size: Follow-up Recommendation 4.0-4.4 cm Every 12 months, vascular consultation recommended *Based upon the Society for Vascular Surgery Guidelines: J Vasc Surg. 2009 Jul;50(4 Suppl):S2-49 *For aortas of maximum diameter of 2.6-2.9 cm meeting the criteria for AAA (?1.5 x proximal normal segment) Chest/Abdomen CTA 06/03/19 00:00 IMPRESSION: Nearly nondiagnostic exam for the assessment of pulmonary embolus. No large or central pulmonary embolus. Small bibasilar effusions with adjacent consolidation. Mild distention of the esophagus with food/debris in the esophagus. Partial visualization of dilated fluid-filled loop of small bowel in the right upper quadrant. Question air/pneumatosis associated with the wall of the small bowel in the right upper quadrant. Recommend further assessment with dedicated CT abdomen/pelvis. Small amount of ascites. TECHNICAL DOCUMENTATION: Quality ID # 436: Final reports with documentation of one or more dose reduction techniques (e.g., Automated exposure control, adjustment of the mA and/or kV according to patient size, use of iterative reconstruction technique) copyright 2011 [employer]- All Rights Reserved Assessment & Plan - Time Time Spent: 30 to 50 Minutes Smoking Cessation Education: over 10 minutes - Plan Summary Plan Summary: This portion of the document being utilized for the impression and plan because the above component is dysfunctional Impression: Abdominal distention, thickened small bowel webb, and slow egress of Gastrografin contents on upper GI series concerning for possible small bowel obstruction. Assessment impaired by patient's acute superimposed on chronic psychiatric issues. Cannot rule out chronic ischemic bowel versus gastroenteritis or other etiology, however the former less likely due to patency of SMA on CT scan Recommendations: 1. Keep n.p.o., IV fluids, and nasogastric decompression 2. Repeat abdominal film later this evening. 3. Will reassess patient later this evening. He deteriorates clinically she may require exploration.
[2019-06-03] MEDS ORDERED: OXYCODONE-ACETAMINOPHEN 5-325 MG TABLET PO PRN (18:36)
[2019-06-03] MEDS ORDERED: OXYCODONE-ACETAMINOPHEN 5-325 MG TABLET NG PRN (18:37)
[2019-06-03] MEDS ORDERED: PHARMACY COMMUNICATION ORDER MC NR (18:45)
[2019-06-03] MEDS: BENZTROPINE MESYLATE 1 MG TABLET NG SCH (21:20)
[2019-06-03] MEDS: CLONAZEPAM 1 MG TABLET NG SCH (21:20)
[2019-06-03] MEDS: SIMVASTATIN 40 MG TABLET NG SCH (21:21)
[2019-06-03] MEDS: POTASSIUM CHLORIDE 20 MEQ PACKET NG SCH (21:22)
[2019-06-03] MEDS: FAMOTIDINE 20 MG TABLET NG SCH (21:22)
[2019-06-03] MEDS: QUETIAPINE FUMARATE 100 MG TABLET NG SCH (21:35)
[2019-06-03] MEDS ORDERED: POTASSIUM CHLORIDE 10 MEQ CAPSULE.ER PO SCH (22:00)
[2019-06-04] MEDS: LEVALBUTEROL HCL NEB 1.25 MG/3 ML AMPUL NEB SCH ×4 (00:54→23:54)
[2019-06-04] MEDS: IPRATROPIUM BROMIDE 0.02% NEB 0.5 MG/2.5 ML AMPUL NEB SCH ×4 (00:54→23:54)
[2019-06-04] MEDS: MORPHINE SULFATE 10 MG/ML INJ IV PRN ×5 (04:04→21:32)
[2019-06-04] MEDS: PANTOPRAZOLE SODIUM 40 MG PACKET.DR NG SCH (05:14)
[2019-06-04 05:48] LABS: HEMATOCRIT 39.9 % (36.0-47.0); HEMOGLOBIN 13.9 g/dL (12.0-15.5); MEAN CORPUSCULAR HGB CONC 34.7 g/dL (32.0-36.0); MEAN CORPUSCULAR VOLUME 86 fl (80-97); PLATELET COUNT 121 10^3/uL (150-450); RED BLOOD COUNT 4.63 10^6/uL (3.72-5.28); RED CELL DISTRIBUTION WIDTH 14.8 % (11.5-14.0); WHITE BLOOD COUNT 9.7 10^3/uL (4.0-10.5)
[2019-06-04 06:11] LABS: ANION GAP 12 (5-19); BLOOD UREA NITROGEN 19 mg/dL (7-20); CALCIUM 8.1 mg/dL (8.4-10.2); CARBON DIOXIDE 23 mmol/L (22-30); CHLORIDE 101 mmol/L (98-107); GLUCOSE 97 mg/dL (75-110)
[2019-06-04 06:15] LABS: POTASSIUM 2.8 mmol/L (3.6-5.0)
[2019-06-04 06:36] LABS: ABSOLUTE LYMPHOCYTES# (MANUAL) 1.6 10^3/uL (0.5-4.7); ABSOLUTE MONOCYTES # (MANUAL) 0.9 10^3/uL (0.1-1.4); BAND NEUTROPHILS % (MANUAL) 5 % (3-5); BASOPHILS % (MANUAL) 0 % (0-2); EOSINOPHILS % (MANUAL) 0 % (0-6); LYMPHOCYTES % (MANUAL) 12 % (13-45); MONOCYTES % (MANUAL) 9 % (3-13); SEGMENTED NEUTROPHILS % (MAN) 70 % (42-78); TOTAL CELLS COUNTED 100; TOXIC GRANULATION 1+; TOXIC VACUOLATION PRESENT
[2019-06-04 06:37] LABS: ANISOCYTOSIS SLIGHT; OVALOCYTES 1+; PLATELET COMMENT ADEQUATE; POIKILOCYTOSIS 1+; TEAR DROP CELLS SLIGHT
[2019-06-04] MEDS: POTASSIUM CHLORIDE 20 MEQ/50 ML RTU IV SCH ×5 (06:53→23:59)
[2019-06-04] MEDS: RINGERS SOLUTION,LACTATED 1,000 ML IV PRN ×2 (06:55→13:45)
[2019-06-04] MEDS: ONDANSETRON HCL INJ/PF 4 MG/2 ML SDV IV PRN ×2 (08:32→13:46)
[2019-06-04] MEDS: ENOXAPARIN SODIUM INJ 40 MG/0.4 ML DISP.SYRIN SUBCUT SCH (09:17)
[2019-06-04] MEDS: POTASSIUM CHLORIDE 20 MEQ PACKET NG SCH ×2 (09:17→21:22)
[2019-06-04] MEDS: FAMOTIDINE 20 MG TABLET NG SCH ×2 (09:20→21:21)
[2019-06-04] MEDS: FLUOXETINE HCL 20 MG/5 ML UDCUP NG SCH (09:22)
--- NOTE | 2019-06-04 09:47 | PDOC PROGRESS REPORT ---
Subjective Progress Note for:: 06/04/19 Reason For Visit: SEVERE HYPOKALEMIA, INTRACTABLE DIARRHEA Physical Exam Vital Signs: Temp Pulse Resp BP Pulse Ox 98.1 F 101 H 18 129/80 H 90 L 06/04/19 03:12 06/04/19 07:53 06/04/19 07:53 06/04/19 03:12 06/04/19 07:53 Intake & Output 06/03/19 06/04/19 06/05/19 06:59 06:59 06:59 Intake Total 2775 3000 50 Output Total 500 Balance 2275 3000 50 Weight 57 kg 57.7 kg General appearance: PRESENT: no acute distress Head exam: PRESENT: normocephalic Eye exam: PRESENT: EOMI Mouth exam: PRESENT: moist Neck exam: PRESENT: full ROM Respiratory exam: PRESENT: clear to auscultation poonam Cardiovascular exam: PRESENT: RRR Pulses: PRESENT: normal radial pulses, normal femoral pulses Vascular exam: PRESENT: pallor - softly distended, hypoactive bs, non tender Rectal exam: PRESENT: deferred Extremities exam: PRESENT: full ROM Musculoskeletal exam: PRESENT: full ROM Neurological exam: PRESENT: alert, oriented to person Psychiatric exam: PRESENT: flat affect Skin exam: PRESENT: dry Results Laboratory Results: 06/04/19 05:12 06/04/19 05:12 06/04/19 06/04/19 05:12 05:12 WBC 9.7 RBC 4.63 Hgb 13.9 Hct 39.9 MCV 86 MCH 30.0 MCHC 34.7 RDW 14.8 H Plt Count 121 L Seg Neutrophils % Not Reportable Sodium 136.0 L Potassium 2.8 L* Chloride 101 Carbon Dioxide 23 Anion Gap 12 BUN 19 Creatinine 0.49 L Est GFR ( Amer) > 60 Glucose 97 Calcium 8.1 L 06/01/19 06/01/19 12:04 12:04 Creatine Kinase 35 Troponin I < 0.012 Impressions: Chest X-Ray 06/01/19 13:39 IMPRESSION: NO ACUTE RADIOGRAPHIC FINDING IN THE CHEST. Abdomen/Pelvis CT 06/01/19 14:16 IMPRESSION: 1. Status post right hemicolectomy with ileocolic anastomosis. Since the previous study there has been development of thickening of mucosa of multiple loops of distal small bowel with a moderate amount of fluid noted in large and small bowel. The possibility of an enteritis must be considered. In addition given dilatation of small bowel loops follow-up indicated to exclude partial obstruction. 2. Since previous study there is been increase in intrahepatic and extrahepatic biliary dilatation. Clinical correlation with liver enzymes indicated. 3. There is again evidence of an infrarenal abdominal aortic aneurysm measuring 4 x 4.1 by 4.1 cm. AAA Size: Follow-up Recommendation 4.0-4.4 cm Every 12 months, vascular consultation recommended *Based upon the Society for Vascular Surgery Guidelines: J Vasc Surg. 2009 Jul;50(4 Suppl):S2-49 *For aortas of maximum diameter of 2.6-2.9 cm meeting the criteria for AAA (?1.5 x proximal normal segment) Chest/Abdomen CTA 06/03/19 00:00 IMPRESSION: Nearly nondiagnostic exam for the assessment of pulmonary embolus. No large or central pulmonary embolus. Small bibasilar effusions with adjacent consolidation. Mild distention of the esophagus with food/debris in the esophagus. Partial visualization of dilated fluid-filled loop of small bowel in the right upper quadrant. Question air/pneumatosis associated with the wall of the small bowel in the right upper quadrant. Recommend further assessment with dedicated CT abdomen/pelvis. Small amount of ascites. TECHNICAL DOCUMENTATION: Quality ID # 436: Final reports with documentation of one or more dose reduction techniques (e.g., Automated exposure control, adjustment of the mA and/or kV according to patient size, use of iterative reconstruction technique) copyright 2011 [employer]- All Rights Reserved Assessment & Plan - Plan Summary Plan Summary: pt admitted iwth intractable diarrhea and vomiting, hypokalemia ugi shows diffusely dilated sb loops iwth question of dye in colon pt still with diarrhea, hypokalemia suspect ileus vs partial sbo further radilology studies pending today need to correct hypokalemia consider pancreatic supplements clear liquids at most will cont to follow.
--- NOTE | 2019-06-04 12:45 | RADIOLOGY REPORT (SQ) ---
EXAM DESCRIPTION: UPPER GI/SM BOWEL COMPLETED DATE/TIME: 06/04/2019 11:34 am REASON FOR STUDY: small bowel dialation COMPARISON: 06/01/2019 TECHNIQUE: Under fluoroscopic guidance, patient ingested water soluble contrast. Fluoroscopic spot images and routine radiographic images acquired and stored on PACS. Following evaluation of esophagus and stomach, additional barium administered with serial delayed abd ominal radiographs until colonic identification. Fluoroscopic images recorded of the terminal ileum. 12 MM BARIUM TABLET GIVEN: No. FLUOROSCOPY TIME: 4.8 minutes 37 images saved to PACS. FINDINGS: NEUROMUSCULAR COORDINATION OF SWALLOW: Normal. No aspiration. ESOPHAGEAL MOTILITY: Esophageal dysmotility with diminished primary peristalsis, tertiary contraction s and distal esophageal spasm. ESOPHAGEAL MUCOSA: Normal mucosa without masses or ulceration. Mildly distended esophagus. GASTRO-ESOPHAGEAL JUNCTION: No hiatal hernia or reflux. STOMACH: Normal without masses or ulcerations. GASTRIC OUTLET: No delay in emptying. Normal pylorus. DUODENUM: Distension of the duodenum measuring up to 5.3 cm. Mucosa normal. No extrinsic masses or m alrotation. JEJUNUM: Multiple loops of distended jejunum throughout the upper abdomen measuring up to 6.0 cm. ILEUM: Multiple loops of distended ileum throughout the lower abdomen. TERMINAL ILEUM AND ILEO-CECAL VALVE: Postsurgical changes status post right renu colectomy with anast omotic chain staple line in the right abdomen COLON: Postsurgical changes from the right hemicolectomy. Multiple delayed and oblique images of the pelvis were obtained to delineate opacification of colonic loops. Evaluation limited secondary to m ultiple overlying dilute contrast containing small bowel loops. Delayed imaging at 18 hours post adm inistration of contrast demonstrates dilute contrast containing pelvic loops which are favored to rep resent colon. NON-GI TRACT STRUCTURES: No significant finding. OTHER: No other significant finding. IMPRESSION: 1. Markedly distended small bowel loops throughout the abdomen measuring up to 6.0 cm most compatible with small bowel obstructive process. 2. Postsurgical changes from the right hemicolectomy with significant delay in contrast passage. Th ere is questionable opacification of colonic loops within the deep pelvis on the 18 hour films. Eval uation severely limited secondary to multiple overlying contrast containing small bowel loops and dil ution of contrast. COMMENT: Quality ID 145: Final reports for procedures using fluoroscopy that document radiation exp osure indices, or exposure time and number of fluorographic images (if radiation exposure indices are not available) TECHNICAL DOCUMENTATION: JOB ID: [id number] [employer]- All Rights Reserved RADIATION DOSE: 37 images saved to PACS. LIMITATIONS: None. Reading location - IP/workstation name: [email or web address]
[2019-06-04] MEDS ORDERED: CIPROFLOXACIN 400 MG/D5W RTU 400 MG/200 ML RTUPB IV SCH (14:00)
--- NOTE | 2019-06-04 14:31 | RADIOLOGY REPORT (SQ) ---
EXAM DESCRIPTION: CHEST SINGLE VIEW COMPLETED DATE/TIME: 06/04/2019 2:19 pm REASON FOR STUDY: verify NG tube placement COMPARISON: Same day radiograph EXAM PARAMETERS: NUMBER OF VIEWS: One view. TECHNIQUE: Single frontal radiographic view of the chest acquired. RADIATION DOSE: NA LIMITATIONS: Lung apices excluded by collimation. FINDINGS: LUNGS AND PLEURA: Mild linear bibasilar opacities, likely atelectasis. Possible small poonam ateral effusions. Evaluation for pneumothorax limited. MEDIASTINUM AND HILAR STRUCTURES: No masses. Contour normal. HEART AND VASCULAR STRUCTURES: Enlarged cardiac silhouette, stable. BONES: No acute findings. HARDWARE: Nasoenteric tube coiled over gastric fundus with distal tip terminating over proximal duode num. OTHER: Multiple loops of dilated small bowel throughout the abdomen with intraluminal contrast, not s ignificantly changed from prior exams. IMPRESSION: 1. Nasoenteric tube coiled over gastric fundus with distal tip overlying proximal duode num. 2. Minimal bibasilar opacities and likely small bilateral effusions. 3. Persistent multiple loops of dilated small bowel, not significantly changed from prior. TECHNICAL DOCUMENTATION: JOB ID: [id number] [employer]- All Rights Reserved Reading location - IP/workstation name: [email or web address]
[2019-06-04] MEDS ORDERED: METRONIDAZOLE 500 MG/NS RTU 500 MG/100 ML RTUPB IV SCH (15:00)
--- NOTE | 2019-06-04 15:25 | PDOC PROGRESS REPORT ---
Subjective Progress Note for:: 06/04/19 Subjective:: PETERSON MONTOYA is a 58 year old female patient with past medical history of coronary artery disease, hyperlipidemia, COPD, alcohol induced chronic pancreatitis, anxiety depression, history of colon CA in 2004 and status post partial colectomy and history of right kidney renal cell carcinoma in 2006 status post partial nephrectomy, tobacco dependence, infrarenal AAA, presented with chief complaint of altered mental status 1 day duration, and nausea and vomiting of 3 days duration. Since patient is confused brief history is obtained from her who is in the room during my encounter. states that the vomiting subsided on the next day but still she has watery nonbloody diarrhea very frequent. states eating out. The states that patient is sober but she smokes about half a pack a day. No reports of fever chills palpitation or diaphoresis. No urinary complaints. Her stool for C. difficile colitis is negative. Her CBC is unremarkable her BMP shows hypokalemia with potassium of 2.3. CT scan of the abdomen is pending. 06/02/2019: Patient seen and examined while resting in bed. She is more awake alert but still she has some confusion. The frequency of her diarrhea is decreasing. Her potassium dropped further from 2.32.2 and the final was 2.9. Additional keratitis ordered. I reviewed her home medication and reconciled. Her CT scan of the abdomen reported as status post right hemicolectomy with ileocolic anastomosis since the previous study there has been development of thickening of mucosa of multiple loops of distal small bowel with a moderate amount of fluid noted in the large and small bowel. The possibility of an enteritis mass to be considered. In addition given dilation of small bowel loo ps follow-up indicated to exclude partial obstruction. 06/03/2019: Patient is a awake alert and she is mildly confused. Yesterday night patient had an episode of tachycardia douglas and tachycardia and local physician requested CTA of the chest and acute pulmonary embolism has been ruled out. This morning patient seen lying in bed she has abdominal distention and it is tympanic to percussion. Dr. Atkins communicated with me that patient has small bowel dilation. Dr. Ortiz also evaluating the patient for possible partial intestinal obstruction. Her potassium is improving. 06/04/2019: Patient seen while she is resting in bed. She is awake alert but she has depressed mood. Her labs shows hypokalemia yesterday her potassium was 3.3 today it becomes 2.8. Microbiology notified me that her stool cultures positive for Salmonella species. Patient started on Zosyn empirically. The r ole of antibiotics in patients with Salmonella enteritis is controversial. Her small bowel series reported as markedly distended small bowel loops throughout the abdomen measuring up to 6 cm most compatible with small bowel obstruction. Patient kept n.p.o. NG tube inserted. Reason For Visit: SEVERE HYPOKALEMIA, INTRACTABLE DIARRHEA Physical Exam Vital Signs: Temp Pulse Resp BP Pulse Ox 97.5 F 101 H 18 126/81 H 96 06/04/19 12:33 06/04/19 12:33 06/04/19 12:33 06/04/19 12:33 06/04/19 12:33 Intake & Output 06/03/19 06/04/19 06/05/19 06:59 06:59 06:59 Intake Total 2775 3000 1100 Output Total 500 Balance 2275 3000 1100 Weight 57 kg 57.7 kg General appearance: PRESENT: mild distress Head exam: PRESENT: atraumatic Eye exam: PRESENT: conjunctiva pink Neck exam: ABSENT: carotid bruit, JVD, lymphadenopathy, thyromegaly Respiratory exam: PRESENT: clear to auscultation poonam. ABSENT: rales, rhonchi, wheezes Cardiovascular exam: PRESENT: RRR. ABSENT: diastolic murmur, rubs, systolic murmur GI/Abdominal exam: PRESENT: normal bowel sounds, soft. ABSENT: distended, guarding, mass, organolmegaly, rebound, tenderness Neurological exam: PRESENT: alert, awake Psychiatric exam: PRESENT: depressed Results Laboratory Results: 06/04/19 05:12 06/04/19 05:12 06/04/19 06/04/19 05:12 05:12 WBC 9.7 RBC 4.63 Hgb 13.9 Hct 39.9 MCV 86 MCH 30.0 MCHC 34.7 RDW 14.8 H Plt Count 121 L Seg Neutrophils % Not Reportable Sodium 136.0 L Potassium 2.8 L* Chloride 101 Carbon Dioxide 23 Anion Gap 12 BUN 19 Creatinine 0.49 L Est GFR ( Amer) > 60 Glucose 97 Calcium 8.1 L 06/01/19 12:04 Stool - Stool - Final 06/01/19 06/01/19 12:04 12:04 Creatine Kinase 35 Troponin I < 0.012 Impressions: Abdomen/Pelvis CT 06/01/19 14:16 IMPRESSION: 1. Status post right hemicolectomy with ileocolic anastomosis. Since the previous study there has been development of thickening of mucosa of multiple loops of distal small bowel with a moderate amount of fluid noted in large and small bowel. The possibility of an enteritis must be considered. In addition given dilatation of small bowel loops follow-up indicated to exclude partial obstruction. 2. Since previous study there is been increase in intrahepatic and extrahepatic biliary dilatation. Clinical correlation with liver enzymes indicated. 3. There is again evidence of an infrarenal abdominal aortic aneurysm measuring 4 x 4.1 by 4.1 cm. AAA Size: Follow-up Recommendation 4.0-4.4 cm Every 12 months, vascular consultation recommended *Based upon the Society for Vascular Surgery Guidelines: J Vasc Surg. 2009 Jul;50(4 Suppl):S2-49 *For aortas of maximum diameter of 2.6-2.9 cm meeting the criteria for AAA (?1.5 x proximal normal segment) Chest/Abdomen CTA 06/03/19 00:00 IMPRESSION: Nearly nondiagnostic exam for the assessment of pulmonary embolus. No large or central pulmonary embolus. Small bibasilar effusions with adjacent consolidation. Mild distention of the esophagus with food/debris in the esophagus. Partial visualization of dilated fluid-filled loop of small bowel in the right upper quadrant. Question air/pneumatosis associated with the wall of the small bowel in the right upper quadrant. Recommend further assessment with dedicated CT abdomen/pelvis. Small amount of ascites. TECHNICAL DOCUMENTATION: Quality ID # 436: Final reports with documentation of one or more dose reduction techniques (e.g., Automated exposure control, adjustment of the mA and/or kV according to patient size, use of iterative reconstruction technique) copyright 2011 [email or web address]- All Rights Reserved Upper GI and Small Bowel X-Ray 06/03/19 07:00 IMPRESSION: 1. Markedly distended small bowel loops throughout the abdomen measuring up to 6.0 cm most compatible with small bowel obstructive process. 2. Postsurgical changes from the right hemicolectomy with significant delay in contrast passage. There is questionable opacification of colonic loops within the deep pelvis on the 18 hour films. Evaluation severely limited secondary to multiple overlying contrast containing small bowel loops and dilution of contrast. Chest X-Ray 06/04/19 00:00 IMPRESSION: 1. Nasoenteric tube coiled over gastric fundus with distal tip overlying proximal duodenum. 2. Minimal bibasilar opacities and likely small bilateral effusions. 3. Persistent multiple loops of dilated small bowel, not significantly changed from prior. Assessment and Plan - Diagnosis (1) Small bowel obstruction Is this a current diagnosis for this admission?: Yes Plan: Her small bowel series reported as markedly distended small bowel loops throughout the abdomen, measuring up to 6 cm most compatible with a small bowel obstructive process. Nothing is mentioned whether it is complete or partial. Patient kept n.p.o. and NG tube has been inserted to drain. Surgical team has been following the patient. (2) Intractable diarrhea Is this a current diagnosis for this admission?: Yes Plan: The diarrhea seems subsiding. Her stool culture was positive for Salmonella species. Patient has been started empirically on Zosyn. The literature states that antibiotic may worsen her diarrhea. (3) Severe hypokalemia Is this a current diagnosis for this admission?: Yes Plan: Is being repleted. Patient also has mild hypomagnesemia which is replaced (4) Acute metabolic encephalopathy Is this a current diagnosis for this admission?: Yes Plan: No change so far (5) COPD (chronic obstructive pulmonary disease) Qualifiers: Emphysema type: unspecified Is this a current diagnosis for this admission?: Yes Plan: I will put her on PRN bronchodilators. (6) Chronic pancreatitis Qualifiers: Pancreatitis type: alcohol induced Qualified Code(s): K86.0 - Alcohol- induced chronic pancreatitis Is this a current diagnosis for this admission?: Yes Plan: Her lipase within normal limits. We will continue her pain medication. (7) Coronary artery disease Qualifiers: Associated angina: without angina Is this a current diagnosis for this admission?: Yes Plan: Continue home meds (8) Hypertension Qualifiers: Hypertension type: essential hypertension Qualified Code(s): I10 - Essential (primary) hypertension Is this a current diagnosis for this admission?: Yes Plan: Continue home meds (9) Tobacco dependence Is this a current diagnosis for this admission?: Yes Plan: Patient will be counseled and encouraged to quit smoking. Is a meantime we will put her on nicotine patch.
--- NOTE | 2019-06-04 16:03 | RADIOLOGY REPORT (SQ) ---
EXAM DESCRIPTION: PICC INSERTION; FLUORO/CV PLACEMENT; U/S GUIDE FOR VASCULAR ACCESS COMPLETED DATE/TIME: 06/04/2019 3:53 pm REASON FOR STUDY: IV medication; IV ABX; IV ACCESS COMPARISON: None. FLUOROSCOPY TIME: 28 second 1 images saved to PACS. TECHNIQUE: Fluoroscopic and ultrasound guided PICC placement. LIMITATIONS: None. PROCEDURE: After written consent and assessment were obtained, the patient was brought into the fluo roscopy room and placed supine on the table. Ultrasound evaluation of potential access sites were per formed. After successfully identifying a patent left basilic vein, the left arm was prepped and drape d in a sterile fashion along with the ultrasound probe. The entry site was anesthetized with 1% lidoc annamaria. A 21 gauge 7 cm needle was advanced through the skin and into the basilic vein under live ultra sound guidance. An ultrasound image was saved to PACS confirming access site. A .018 guide wire was then inserted through the needle and into the venous system. The needle was then removed and an 11 b lade scalpel was used to make a 1cm skin incision. A 5 fr peel-away sheath was advanced over the wir e and into the venous system. A measurement was then made using the existing wire and live fluoroscop ic guidance. The wire was then removed and trimmed. The PICC was advanced through the peel-away sheat h and into the venous system. The peel-away sheath was removed and the catheter was adhered to the pa tients arm with a stat lock. The catheter was then aspirated and flushed and a sterile bandage was pl aced over the access site. A fluoroscopic spot image was saved to PACS confirming the catheter tip w ithin the cavoatrial junction. IMPRESSION: SUCCESSFUL PLACEMENT OF A 5 FR DUAL LUMEN 35 CM PICC IN THE LEFT BASILIC VEIN. COMMENT: Patient medication list reviewed: Yes- Quality ID# 130:Eligible professional attests to doc umenting in the medical record they obtained, updated, or reviewed the patient's current medications. . Quality ID 145: Final reports for procedures using fluoroscopy that document radiation exposure barrera stella, or exposure time and number of fluorographic images (if radiation exposure indices are not avail able) Quality ID #76: The patient was prepped and draped using maximum sterile barrier technique including cap, mask, sterile gown, sterile gloves, a large sterile sheet, hand hygiene, and 2% Chlorhexidine fo r cutaneous antisepsis. When ultrasound is used, sterile ultrasound techniques are followed requiring sterile gel and sterile probes. TECHNICAL DOCUMENTATION: JOB ID: [id number] [employer]- All Rights Reserved rev-02/23 Reading location - IP/workstation name: [email or web address]
[2019-06-04] MEDS: MAGNESIUM SULFATE/D5W 1 GM/100 ML RTUPB IV SCH ×2 (17:19→18:29)
[2019-06-04] MEDS: POTASSI CL 20 MEQ/50 ML RIDER 20 MEQ/50 ML RTUPB IV SCH ×2 (17:19→18:29)
[2019-06-04] MEDS: PIPERACILLIN SODIUM/TAZOBACTAM 3.375 GM in NORMAL SALINE 100 ML IV SCH (17:26)
[2019-06-04] MEDS: MAGNESIUM SULFATE 1 GM/D5W 100 ML IV SCH ×2 (18:30→19:31)
[2019-06-04] MEDS: NICOTINE 21 MG/24 HR PATCH.TD24 TD PRN (19:38)
[2019-06-04] MEDS: BENZTROPINE MESYLATE 1 MG TABLET NG SCH (21:21)
[2019-06-04] MEDS: QUETIAPINE FUMARATE 100 MG TABLET NG SCH (21:21)
[2019-06-04] MEDS: CLONAZEPAM 1 MG TABLET NG SCH (21:21)
[2019-06-04] MEDS: SIMVASTATIN 40 MG TABLET NG SCH (21:22)
[2019-06-04] MEDS ORDERED: NORMAL SALINE 10 ML SDV (AFTER EACH USE) IV PRN (21:30)
[2019-06-05] MEDS: MORPHINE SULFATE 10 MG/ML INJ IV PRN ×4 (00:07→17:28)
[2019-06-05] MEDS: PIPERACILLIN SODIUM/TAZOBACTAM 3.375 GM in NORMAL SALINE 100 ML IV SCH ×2 (00:42→06:07)
[2019-06-05] MEDS ORDERED: LORAZEPAM INJ 2 MG/1 ML VIAL IV ONE (01:15)
[2019-06-05] MEDS: RINGERS SOLUTION,LACTATED 1,000 ML IV PRN (06:06)
[2019-06-05] MEDS: PANTOPRAZOLE SODIUM 40 MG PACKET.DR NG SCH (06:07)
[2019-06-05 06:41] LABS: MEAN CORPUSCULAR HEMOGLOBIN 29.6 pg (27.0-33.4); MEAN CORPUSCULAR HGB CONC 34.4 g/dL (32.0-36.0); MEAN CORPUSCULAR VOLUME 86 fl (80-97); PLATELET COUNT 138 10^3/uL (150-450); RED BLOOD COUNT 4.06 10^6/uL (3.72-5.28); RED CELL DISTRIBUTION WIDTH 14.9 % (11.5-14.0); WHITE BLOOD COUNT 8.7 10^3/uL (4.0-10.5)
[2019-06-05 06:55] LABS: ANION GAP 7 (5-19); BLOOD UREA NITROGEN 15 mg/dL (7-20); CALCIUM 7.7 mg/dL (8.4-10.2); CARBON DIOXIDE 27 mmol/L (22-30); CHLORIDE 103 mmol/L (98-107); GLUCOSE 72 mg/dL (75-110); POTASSIUM 4.5 mmol/L (3.6-5.0)
[2019-06-05 07:23] LABS: ABSOLUTE LYMPHOCYTES# (MANUAL) 0.7 10^3/uL (0.5-4.7); ABSOLUTE MONOCYTES # (MANUAL) 1.1 10^3/uL (0.1-1.4); BAND NEUTROPHILS % (MANUAL) 6 % (3-5); BASOPHILS % (MANUAL) 0 % (0-2); EOSINOPHILS % (MANUAL) 0 % (0-6); LYMPHOCYTES % (MANUAL) 8 % (13-45); MONOCYTES % (MANUAL) 13 % (3-13); SEGMENTED NEUTROPHILS % (MAN) 73 % (42-78); TOTAL CELLS COUNTED 100
[2019-06-05 07:25] LABS: ANISOCYTOSIS SLIGHT; OVALOCYTES SLIGHT; TOXIC GRANULATION SLIGHT
[2019-06-05 07:26] LABS: PLATELET CLUMPS PRESENT
[2019-06-05 07:27] LABS: PLATELET COMMENT DECREASED
[2019-06-05] MEDS: IPRATROPIUM BROMIDE 0.02% NEB 0.5 MG/2.5 ML AMPUL NEB SCH ×2 (08:27→15:54)
[2019-06-05] MEDS: LEVALBUTEROL HCL NEB 1.25 MG/3 ML AMPUL NEB SCH ×2 (08:27→15:54)
--- NOTE | 2019-06-05 09:37 | RADIOLOGY REPORT (SQ) ---
EXAM DESCRIPTION: ABDOMEN 2 VIEWS COMPLETED DATE/TIME: 06/05/2019 9:11 am REASON FOR STUDY: flat and upright, SBO COMPARISON: Upper GI dated 06/03/2019 NUMBER OF VIEWS: Two views. TECHNIQUE: Supine and erect/decubitus radiographic images of the abdomen acquired. LIMITATIONS: None. FINDINGS: FREE AIR: None. No abnormal gas collections. LUNG BASES: Clear. BOWEL GAS PATTERN: Persisting contrast feel dilated loops of small bowel. No definite contrast withi n the colon. The stomach is decompressed following NG tube placement. CALCIFICATIONS: No suspicious calcifications. SOFT TISSUES: No gross mass or suggestion of organomegaly. HARDWARE: None in the abdomen. BONES: No acute fracture. No worrisome bone lesions. OTHER: No other significant finding. IMPRESSION: Persistent small-bowel distention filled with contrast. No definite contrast within the colon. Findings remain consistent with at least partial obstruction if not complete. TECHNICAL DOCUMENTATION: JOB ID: [id number] [employer]- All Rights Reserved Reading location - IP/workstation name: [email or web address]
[2019-06-05] MEDS: ENOXAPARIN SODIUM INJ 40 MG/0.4 ML DISP.SYRIN SUBCUT SCH (11:17)
--- NOTE | 2019-06-05 11:18 | PDOC PROGRESS REPORT ---
Subjective Progress Note for:: 06/05/19 Subjective:: This is a 58-year-old female with abdominal pain, small bowel wall thickening, and small bowel dilation. Today she complains of crampy abdominal pain, but denies any nausea or vomiting. Her NG tube is in place. She denies chest pain, shortness of breath, fevers, chills, dizziness. Her last bowel movement was yesterday, and was loose. Reason For Visit: SEVERE HYPOKALEMIA, INTRACTABLE DIARRHEA Physical Exam Vital Signs: Temp Pulse Resp BP Pulse Ox 98.2 F 93 16 105/67 93 06/05/19 04:11 06/05/19 08:27 06/05/19 08:27 06/05/19 04:11 06/05/19 08:27 Intake & Output 06/04/19 06/05/19 06/06/19 06:59 06:59 06:59 Intake Total 3000 3046 50 Output Total 5300 Balance 3000 -2254 50 Weight 57.7 kg 56.3 kg General appearance: PRESENT: no acute distress, cooperative Head exam: PRESENT: atraumatic, normocephalic Eye exam: PRESENT: EOMI, PERRLA. ABSENT: scleral icterus Mouth exam: ABSENT: moist, neck supple Neck exam: ABSENT: meningismus, tenderness, thyromegaly, tracheal deviation Respiratory exam: PRESENT: clear to auscultation poonam. ABSENT: chest wall tenderness, tachypnea, wheezes Cardiovascular exam: PRESENT: RRR Pulses: PRESENT: normal radial pulses Vascular exam: PRESENT: normal capillary refill. ABSENT: pallor GI/Abdominal exam: PRESENT: soft, tenderness - Minimal periumbilical. ABSENT: distended Rectal exam: PRESENT: deferred Extremities exam: ABSENT: clubbing Musculoskeletal exam: ABSENT: deformity Neurological exam: PRESENT: alert, awake Psychiatric exam: ABSENT: agitated, anxious, depressed Focused psych exam: PRESENT: other - Tangential. Psychomotor depression. Skin exam: ABSENT: cyanosis, erythema, jaundice Results Laboratory Results: 06/05/19 06:20 06/05/19 06:20 06/05/19 06/05/19 06:20 06:20 WBC 8.7 RBC 4.06 Hgb 12.0 Hct 35.0 L MCV 86 MCH 29.6 MCHC 34.4 RDW 14.9 H Plt Count 138 L Seg Neutrophils % Not Reportable Sodium 136.6 L Potassium 4.5 Chloride 103 Carbon Dioxide 27 Anion Gap 7 BUN 15 Creatinine 0.52 Est GFR ( Amer) > 60 Glucose 72 L Calcium 7.7 L Magnesium 2.2 06/01/19 12:04 Stool - Stool - Final 06/01/19 12:04 Stool - Stool Stool Culture - Final Salmonella Species 06/01/19 06/01/19 12:04 12:04 Creatine Kinase 35 Troponin I < 0.012 Impressions: Abdomen/Pelvis CT 06/01/19 14:16 IMPRESSION: 1. Status post right hemicolectomy with ileocolic anastomosis. Since the previous study there has been development of thickening of mucosa of multiple loops of distal small bowel with a moderate amount of fluid noted in large and small bowel. The possibility of an enteritis must be considered. In addition given dilatation of small bowel loops follow-up indicated to exclude partial obstruction. 2. Since previous study there is been increase in intrahepatic and extrahepatic biliary dilatation. Clinical correlation with liver enzymes indicated. 3. There is again evidence of an infrarenal abdominal aortic aneurysm measuring 4 x 4.1 by 4.1 cm. AAA Size: Follow-up Recommendation 4.0-4.4 cm Every 12 months, vascular consultation recommended *Based upon the Society for Vascular Surgery Guidelines: J Vasc Surg. 2009 Jul;50(4 Suppl):S2-49 *For aortas of maximum diameter of 2.6-2.9 cm meeting the criteria for AAA (?1.5 x proximal normal segment) Chest/Abdomen CTA 06/03/19 00:00 IMPRESSION: Nearly nondiagnostic exam for the assessment of pulmonary embolus. No large or central pulmonary embolus. Small bibasilar effusions with adjacent consolidation. Mild distention of the esophagus with food/debris in the esophagus. Partial visualization of dilated fluid-filled loop of small bowel in the right upper quadrant. Question air/pneumatosis associated with the wall of the small bowel in the right upper quadrant. Recommend further assessment with dedicated CT abdomen/pelvis. Small amount of ascites. TECHNICAL DOCUMENTATION: Quality ID # 436: Final reports with documentation of one or more dose reduction techniques (e.g., Automated exposure control, adjustment of the mA and/or kV according to patient size, use of iterative reconstruction technique) copyright 2011 [employer]- All Rights Reserved Upper GI and Small Bowel X-Ray 06/03/19 07:00 IMPRESSION: 1. Markedly distended small bowel loops throughout the abdomen measuring up to 6.0 cm most compatible with small bowel obstructive process. 2. Postsurgical changes from the right hemicolectomy with significant delay in contrast passage. There is questionable opacification of colonic loops within the deep pelvis on the 18 hour films. Evaluation severely limited secondary to multiple overlying contrast containing small bowel loops and dilution of con trast. Chest X-Ray 06/04/19 00:00 IMPRESSION: 1. Nasoenteric tube coiled over gastric fundus with distal tip overlying proximal duodenum. 2. Minimal bibasilar opacities and likely small bilateral effusions. 3. Persistent multiple loops of dilated small bowel, not significantly changed from prior. Guidance Fluoroscopy 06/04/19 00:00 IMPRESSION: SUCCESSFUL PLACEMENT OF A 5 FR DUAL LUMEN 35 CM PICC IN THE LEFT BASILIC VEIN. Interventional Vascular Procedure 06/04/19 00:00 IMPRESSION: SUCCESSFUL PLACEMENT OF A 5 FR DUAL LUMEN 35 CM PICC IN THE LEFT BASILIC VEIN. PICC Line Insertion 06/04/19 00:00 IMPRESSION: SUCCESSFUL PLACEMENT OF A 5 FR DUAL LUMEN 35 CM PICC IN THE LEFT BASILIC VEIN. Abdomen X-Ray 06/05/19 00:00 IMPRESSION: Persistent small-bowel distention filled with contrast. No definite contrast within the colon. Findings remain consistent with at least partial obstruction if not complete. Assessment & Plan - Diagnosis (1) Salmonella enteritis Is this a current diagnosis for this admission?: Yes (2) Abdominal pain Qualifiers: Abdominal location: periumbilical Qualified Code(s): R10.33 - Periumbilical pain Is this a current diagnosis for this admission?: Yes - Plan Summary Plan Summary: This is a 58-year-old female with small bowel thickening and dilation seen on CT scan. The patient had a recent upper GI series with small bowel follow-through. Her contrast was very delayed in moving through, however she continues to have small liquid bowel movements (her last bowel movement was yesterday). Her x-ray today still shows contrast within the small bowel, concerning for ileus versus obstruction. The patient was recently discovered to have Salmonella enteritis, via culture. Her antibiotics were changed to Zosyn. I have discussed several eventualities with the patient and her . At this time, the patient and her are requesting continued medical management of the small bowel enteritis, with the expectation that her abdominal complaints will improve. This is a reasonable approach. I would recommend another 48 hours worth of observation and antibiotics. If there is no improvement in 48 hours, she may require exploratory laparotomy for a possible partial small bowel obstruction. The patient's expresses understanding. Continue NG tube for now. Continue Zosyn. Monitor abdominal exam and x-rays closely. Repeat abdominal x-ray tomorrow.
[2019-06-05] MEDS: FLUOXETINE HCL 20 MG/5 ML UDCUP NG SCH (11:26)
[2019-06-05] MEDS: FAMOTIDINE 20 MG TABLET NG SCH ×2 (11:26→21:54)
[2019-06-05] MEDS: POTASSIUM CHLORIDE 20 MEQ PACKET NG SCH ×2 (11:27→21:54)
[2019-06-05] MEDS: NORMAL SALINE 10 ML SDV (SCHEDULED) IV SCH ×3 (11:27→21:55)
--- NOTE | 2019-06-05 15:58 | PDOC PROGRESS REPORT ---
Subjective Progress Note for:: 06/05/19 Subjective:: PETERSON MONTOYA is a 58 year old female patient with past medical history of coronary artery disease, hyperlipidemia, COPD, alcohol induced chronic pancreatitis, anxiety depression, history of colon CA in 2004 and status post partial colectomy and history of right kidney renal cell carcinoma in 2006 status post partial nephrectomy, tobacco dependence, infrarenal AAA, presented with chief complaint of altered mental status 1 day duration, and nausea and vomiting of 3 days duration. Since patient is confused brief history is obtained from her who is in the room during my encounter. states that the vomiting subsided on the next day but still she has watery nonbloody diarrhea very frequent. states eating out. The states that patient is sober but she smokes about half a pack a day. No reports of fever chills palpitation or diaphoresis. No urinary complaints. Her stool for C. difficile colitis is negative. Her CBC is unremarkable her BMP shows hypokalemia with potassium of 2.3. CT scan of the abdomen is pending. 06/02/2019: Patient seen and examined while resting in bed. She is more awake alert but still she has some confusion. The frequency of her diarrhea is decreasing. Her potassium dropped further from 2.32.2 and the final was 2.9. Additional keratitis ordered. I reviewed her home medication and reconciled. Her CT scan of the abdomen reported as status post right hemicolectomy with ileocolic anastomosis since the previous study there has been development of thickening of mucosa of multiple loops of distal small bowel with a moderate amount of fluid noted in the large and small bowel. The possibility of an enteritis mass to be considered. In addition given dilation of small bowel loo ps follow-up indicated to exclude partial obstruction. 06/03/2019: Patient is a awake alert and she is mildly confused. Yesterday night patient had an episode of tachycardia douglas and tachycardia and local physician requested CTA of the chest and acute pulmonary embolism has been ruled out. This morning patient seen lying in bed she has abdominal distention and it is tympanic to percussion. Dr. Atkins communicated with me that patient has small bowel dilation. Dr. Ortiz also evaluating the patient for possible partial intestinal obstruction. Her potassium is improving. 06/04/2019: Patient seen while she is resting in bed. She is awake alert but she has depressed mood. Her labs shows hypokalemia yesterday her potassium was 3.3 today it becomes 2.8. Microbiology notified me that her stool cultures positive for Salmonella species. Patient started on Zosyn empirically. The r ole of antibiotics in patients with Salmonella enteritis is controversial. Her small bowel series reported as markedly distended small bowel loops throughout the abdomen measuring up to 6 cm most compatible with small bowel obstruction. Patient kept n.p.o. NG tube inserted. 06/05/2019: Patient seen and examined while she is resting in bed comfortably. Today she is more awake alert and conversant. NG tube is in situ and draining thick yellowish material. Labs reviewed and her white cell counts improved and her hypokalemia is corrected. I change her IV fluid to D5W and Ringer lactate. Her stool culture is positive for Salmonella species and sensitive to ampicillin, quinolones and Bactrim. Her Zosyn is switched to Cipro. Reason For Visit: SEVERE HYPOKALEMIA, INTRACTABLE DIARRHEA Physical Exam Vital Signs: Temp Pulse Resp BP Pulse Ox 98.3 F 92 18 112/76 96 06/05/19 12:22 06/05/19 12:22 06/05/19 12:22 06/05/19 12:22 06/05/19 12:22 Intake & Output 06/04/19 06/05/19 06/06/19 06:59 06:59 06:59 Intake Total 3000 3046 50 Output Total 5300 Balance 3000 -2254 50 Weight 57.7 kg 56.3 kg General appearance: PRESENT: no acute distress Head exam: PRESENT: atraumatic Eye exam: PRESENT: conjunctiva pink Mouth exam: PRESENT: dry mucosa Neck exam: ABSENT: carotid bruit, JVD, lymphadenopathy, thyromegaly Respiratory exam: PRESENT: clear to auscultation poonam. ABSENT: rales, rhonchi, wheezes Cardiovascular exam: PRESENT: RRR. ABSENT: diastolic murmur, rubs, systolic murmur GI/Abdominal exam: PRESENT: hypoactive bowel sounds, soft Neurological exam: PRESENT: alert, awake Results Laboratory Results: 06/05/19 06:20 06/05/19 06:20 06/05/19 06/05/19 06:20 06:20 WBC 8.7 RBC 4.06 Hgb 12.0 Hct 35.0 L MCV 86 MCH 29.6 MCHC 34.4 RDW 14.9 H Plt Count 138 L Seg Neutrophils % Not Reportable Sodium 136.6 L Potassium 4.5 Chloride 103 Carbon Dioxide 27 Anion Gap 7 BUN 15 Creatinine 0.52 Est GFR ( Amer) > 60 Glucose 72 L Calcium 7.7 L Magnesium 2.2 06/01/19 12:04 Stool - Stool - Final 06/01/19 12:04 Stool - Stool Stool Culture - Final Salmonella Species 06/01/19 06/01/19 12:04 12:04 Creatine Kinase 35 Troponin I < 0.012 Impressions: Abdomen/Pelvis CT 06/01/19 14:16 IMPRESSION: 1. Status post right hemicolectomy with ileocolic anastomosis. Since the previous study there has been development of thickening of mucosa of multiple loops of distal small bowel with a moderate amount of fluid noted in large and small bowel. The possibility of an enteritis must be considered. In addition given dilatation of small bowel loops follow-up indicated to exclude partial obstruction. 2. Since previous study there is been increase in intrahepatic and extrahepatic biliary dilatation. Clinical correlation with liver enzymes indicated. 3. There is again evidence of an infrarenal abdominal aortic aneurysm measuring 4 x 4.1 by 4.1 cm. AAA Size: Follow-up Recommendation 4.0-4.4 cm Every 12 months, vascular consultation recommended *Based upon the Society for Vascular Surgery Guidelines: J Vasc Surg. 2009 Jul;50(4 Suppl):S2-49 *For aortas of maximum diameter of 2.6-2.9 cm meeting the criteria for AAA (?1.5 x proximal normal segment) Chest/Abdomen CTA 06/03/19 00:00 IMPRESSION: Nearly nondiagnostic exam for the assessment of pulmonary embolus. No large or central pulmonary embolus. Small bibasilar effusions with adjacent consolidation. Mild distention of the esophagus with food/debris in the esophagus. Partial visualization of dilated fluid-filled loop of small bowel in the right upper quadrant. Question air/pneumatosis associated with the wall of the small bowel in the right upper quadrant. Recommend further assessment with dedicated CT abdomen/pelvis. Small amount of ascites. TECHNICAL DOCUMENTATION: Quality ID # 436: Final reports with documentation of one or more dose reduction techniques (e.g., Automated exposure control, adjustment of the mA and/or kV according to patient size, use of iterative reconstruction technique) copyright 2011 [employer]- All Rights Reserved Upper GI and Small Bowel X-Ray 06/03/19 07:00 IMPRESSION: 1. Markedly distended small bowel loops throughout the abdomen measuring up to 6.0 cm most compatible with small bowel obstructive process. 2. Postsurgical changes from the right hemicolectomy with significant delay in contrast passage. There is questionable opacification of colonic loops within the deep pelvis on the 18 hour films. Evaluation severely limited secondary to multiple overlying contrast containing small bowel loops and dilution of contrast. Chest X-Ray 06/04/19 00:00 IMPRESSION: 1. Nasoenteric tube coiled over gastric fundus with distal tip overlying proximal duodenum. 2. Minimal bibasilar opacities and likely small bilateral effusions. 3. Persistent multiple loops of dilated small bowel, not significantly changed from prior. Guidance Fluoroscopy 06/04/19 00:00 IMPRESSION: SUCCESSFUL PLACEMENT OF A 5 FR DUAL LUMEN 35 CM PICC IN THE LEFT BASILIC VEIN. Interventional Vascular Procedure 06/04/19 00:00 IMPRESSION: SUCCESSFUL PLACEMENT OF A 5 FR DUAL LUMEN 35 CM PICC IN THE LEFT BASILIC VEIN. PICC Line Insertion 06/04/19 00:00 IMPRESSION: SUCCESSFUL PLACEMENT OF A 5 FR DUAL LUMEN 35 CM PICC IN THE LEFT BASILIC VEIN. Abdomen X-Ray 06/05/19 00:00 IMPRESSION: Persistent small-bowel distention filled with contrast. No definite contrast within the colon. Findings remain consistent with at least partial obstruction if not complete. Assessment and Plan - Diagnosis (1) Small bowel obstruction Is this a current diagnosis for this admission?: Yes Plan: Her small bowel series reported as markedly distended small bowel loops throughout the abdomen, measuring up to 6 cm most compatible with a small bowel obstructive process. Nothing is mentioned whether it is complete or partial. Patient kept n.p.o. and NG tube has been inserted to drain. Surgical team has been following the patient. (2) Intractable diarrhea Is this a current diagnosis for this admission?: Yes Plan: Has be resolving (3) Severe hypokalemia Is this a current diagnosis for this admission?: Yes Plan: Has resolved (4) Acute metabolic encephalopathy Is this a current diagnosis for this admission?: Yes Plan: No change so far (5) COPD (chronic obstructive pulmonary disease) Qualifiers: Emphysema type: unspecified Is this a current diagnosis for this admission?: Yes Plan: I will put her on PRN bronchodilators. (6) Chronic pancreatitis Qualifiers: Pancreatitis type: alcohol induced Qualified Code(s): K86.0 - Alcohol- induced chronic pancreatitis Is this a current diagnosis for this admission?: Yes Plan: Her lipase within normal limits. We will continue her pain medication. (7) Coronary artery disease Qualifiers: Associated angina: without angina Is this a current diagnosis for this admission?: Yes Plan: Continue home meds (8) Hypertension Qualifiers: Hypertension type: essential hypertension Qualified Code(s): I10 - Essential (primary) hypertension Is this a current diagnosis for this admission?: Yes Plan: Continue home meds (9) Tobacco dependence Is this a current diagnosis for this admission?: Yes Plan: Patient will be counseled and encouraged to quit smoking. Is a meantime we will put her on nicotine patch.
[2019-06-05] MEDS ORDERED: LORAZEPAM INJ 2 MG/1 ML VIAL IV PRN (17:21)
[2019-06-05] MEDS: CIPROFLOXACIN 400 MG/D5W RTU 400 MG/200 ML RTUPB IV SCH (17:28)
[2019-06-05] MEDS: ONDANSETRON HCL INJ/PF 4 MG/2 ML SDV IV PRN (18:48)
[2019-06-05] MEDS: DEXTROSE 5%-LACTATED RINGERS 1,000 ML IV PRN (19:00)
[2019-06-05] MEDS ORDERED: DEXTROSE 50%-WATER 25 GM/50 ML DISP.SYRIN IV PRN ×2 (20:01)
[2019-06-05] MEDS ORDERED: DEXTROSE 40% GEL 15 GM TUBE PO PRN ×2 (20:01)
[2019-06-05] MEDS ORDERED: GLUCAGON,HUMAN RECOMB 1 MG INJ SUBCUT PRN (20:01)
[2019-06-05] MEDS: SIMVASTATIN 40 MG TABLET NG SCH (21:53)
[2019-06-05] MEDS: CLONAZEPAM 1 MG TABLET NG SCH (21:53)
[2019-06-05] MEDS: BENZTROPINE MESYLATE 1 MG TABLET NG SCH (21:54)
[2019-06-05] MEDS: QUETIAPINE FUMARATE 100 MG TABLET NG SCH (21:57)
[2019-06-06] MEDS: IPRATROPIUM BROMIDE 0.02% NEB 0.5 MG/2.5 ML AMPUL NEB SCH ×3 (00:32→16:43)
[2019-06-06] MEDS: LEVALBUTEROL HCL NEB 1.25 MG/3 ML AMPUL NEB SCH ×3 (00:32→16:43)
[2019-06-06] MEDS: DEXTROSE 5%-LACTATED RINGERS 1,000 ML IV PRN ×3 (01:41→17:36)
[2019-06-06] MEDS: PANTOPRAZOLE SODIUM 40 MG PACKET.DR NG SCH (05:51)
[2019-06-06] MEDS: CIPROFLOXACIN 400 MG/D5W RTU 400 MG/200 ML RTUPB IV SCH ×2 (05:51→17:32)
[2019-06-06] MEDS: MORPHINE SULFATE 10 MG/ML INJ IV PRN ×4 (05:56→16:12)
[2019-06-06] MEDS: POTASSIUM CHLORIDE 20 MEQ PACKET NG SCH ×2 (09:45→21:29)
--- NOTE | 2019-06-06 09:45 | PDOC PROGRESS REPORT ---
Subjective Progress Note for:: 06/06/19 Subjective:: Had BM yesterday. Still with abdominal pains Reason For Visit: SEVERE HYPOKALEMIA, INTRACTABLE DIARRHEA Physical Exam Vital Signs: Temp Pulse Resp BP Pulse Ox 97.7 F 89 20 104/69 97 06/06/19 07:35 06/06/19 07:35 06/06/19 07:35 06/06/19 07:35 06/06/19 07:35 Intake & Output 06/05/19 06/06/19 06/07/19 06:59 06:59 06:59 Intake Total 3046 2250 1000 Output Total 5300 1750 Balance -2254 500 1000 Weight 56.3 kg 57 kg Exam: abd is soft with mild diffuse tenderness Results Laboratory Results: 06/05/19 06:20 06/05/19 06:20 06/01/19 12:04 Stool - Stool - Final 06/01/19 12:04 Stool - Stool Stool Culture - Final Salmonella Species 06/01/19 06/01/19 12:04 12:04 Creatine Kinase 35 Troponin I < 0.012 Impressions: Abdomen/Pelvis CT 06/01/19 14:16 IMPRESSION: 1. Status post right hemicolectomy with ileocolic anastomosis. Since the previous study there has been development of thickening of mucosa of multiple loops of distal small bowel with a moderate amount of fluid noted in large and small bowel. The possibility of an enteritis must be considered. In addition given dilatation of small bowel loops follow-up indicated to exclude partial obstruction. 2. Since previous study there is been increase in intrahepatic and extrahepatic biliary dilatation. Clinical correlation with liver enzymes indicated. 3. There is again evidence of an infrarenal abdominal aortic aneurysm measuring 4 x 4.1 by 4.1 cm. AAA Size: Follow-up Recommendation 4.0-4.4 cm Every 12 months, vascular consultation recommended *Based upon the Society for Vascular Surgery Guidelines: J Vasc Surg. 2009 Jul ;50(4 Suppl):S2-49 *For aortas of maximum diameter of 2.6-2.9 cm meeting the criteria for AAA (?1.5 x proximal normal segment) Chest/Abdomen CTA 06/03/19 00:00 IMPRESSION: Nearly nondiagnostic exam for the assessment of pulmonary embolus. No large or central pulmonary embolus. Small bibasilar effusions with adjacent consolidation. Mild distention of the esophagus with food/debris in the esophagus. Partial visualization of dilated fluid-filled loop of small bowel in the right upper quadrant. Question air/pneumatosis associated with the wall of the small bowel in the right upper quadrant. Recommend further assessment with dedicated CT abdomen/pelvis. Small amount of ascites. TECHNICAL DOCUMENTATION: Quality ID # 436: Final reports with documentation of one or more dose reduction techniques (e.g., Automated exposure control, adjustment of the mA and/or kV according to patient size, use of iterative reconstruction technique) copyright 2011 [employer]- All Rights Reserved Upper GI and Small Bowel X-Ray 06/03/19 07:00 IMPRESSION: 1. Markedly distended small bowel loops throughout the abdomen measuring up to 6.0 cm most compatible with small bowel obstructive process. 2. Postsurgical changes from the right hemicolectomy with significant delay in contrast passage. There is questionable opacification of colonic loops within the deep pelvis on the 18 hour films. Evaluation severely limited secondary to multiple overlying contrast containing small bowel loops and dilution of contrast. Chest X-Ray 06/04/19 00:00 IMPRESSION: 1. Nasoenteric tube coiled over gastric fundus with distal tip overlying proximal duodenum. 2. Minimal bibasilar opacities and likely small bilateral effusions. 3. Persistent multiple loops of dilated small bowel, not significantly changed from prior. Guidance Fluoroscopy 06/04/19 00:00 IMPRESSION: SUCCESSFUL PLACEMENT OF A 5 FR DUAL LUMEN 35 CM PICC IN THE LEFT BASILIC VEIN. Interventional Vascular Procedure 06/04/19 00:00 IMPRESSION: SUCCESSFUL PLACEMENT OF A 5 FR DUAL LUMEN 35 CM PICC IN THE LEFT BASILIC VEIN. PICC Line Insertion 06/04/19 00:00 IMPRESSION: SUCCESSFUL PLACEMENT OF A 5 FR DUAL LUMEN 35 CM PICC IN THE LEFT BASILIC VEIN. Abdomen X-Ray 06/05/19 00:00 IMPRESSION: Persistent small-bowel distention filled with contrast. No definite contrast within the colon. Findings remain consistent with at least partial obstruction if not complete. Assessment & Plan - Diagnosis (1) Abdominal pain Qualifiers: Abdominal location: periumbilical Qualified Code(s): R10.33 - Periumbilical pain Is this a current diagnosis for this admission?: Yes (2) Salmonella enteritis Is this a current diagnosis for this admission?: Yes - Time Time Spent with patient: 15-24 minutes - Inpatient Certification Medical Necessity: Need For IV Fluids, Need for IV Antibiotics - Plan Summary Plan Summary: Continue Cipro for Salmonellla enteritis Continue NGT and hydration
[2019-06-06] MEDS ORDERED: ACETAMINOPHEN SOLN 325 MG/10.15 ML UDCUP NG PRN (10:13)
[2019-06-06] MEDS ORDERED: PANTOPRAZOLE SODIUM 40 MG VIAL IV ONE (10:15)
--- NOTE | 2019-06-06 10:29 | RADIOLOGY REPORT (SQ) ---
EXAM DESCRIPTION: KUB/ABDOMEN (SINGLE VIEW) COMPLETED DATE/TIME: 06/06/2019 8:31 am REASON FOR STUDY: sbo Salmonella enteritis COMPARISON: None. NUMBER OF VIEWS: One view. TECHNIQUE: Supine radiographic image of the abdomen acquired. LIMITATIONS: None. FINDINGS: BOWEL GAS PATTERN: There is still retained barium from upper GI small bowel follow-through 06/03/2019. However, on today's study there is contrast in the transverse colon and rectosigmoid sug gesting against total obstruction. These findings were discussed with Dr. Berman. A nasogastric tube decompresses the stomach. CALCIFICATIONS: No suspicious calcifications. SOFT TISSUES: No gross mass or suggestion of organomegaly. HARDWARE: Clips right upper quadrant post cholecystectomy. Post right hemicolectomy with ileocolic a nastomosis just to the right of the L3 vertebral body. BONES: No acute fracture. No worrisome bone lesions. OTHER: No other significant finding. IMPRESSION: Small amount of barium is now seen in the transverse colon and rectosigmoid. Findings d iscussed with Dr. Berman TECHNICAL DOCUMENTATION: JOB ID: [id number] [employer]- All Rights Reserved Reading location - IP/workstation name: [email or web address]
[2019-06-06] MEDS ORDERED: DEXTROSE 40% GEL 15 GM TUBE NG PRN ×2 (10:30)
[2019-06-06] MEDS: FLUOXETINE HCL 20 MG/5 ML UDCUP NG SCH (11:13)
[2019-06-06] MEDS: NORMAL SALINE 10 ML SDV (SCHEDULED) IV SCH ×2 (11:14→21:30)
[2019-06-06] MEDS: ENOXAPARIN SODIUM INJ 40 MG/0.4 ML DISP.SYRIN SUBCUT SCH (11:26)
[2019-06-06] MEDS: PHENOL/SODIUM PHENOLATE 100 SPRAY/177 ML BOTTLE PO PRN ×2 (11:37→16:13)
[2019-06-06] MEDS: NICOTINE 21 MG/24 HR PATCH.TD24 TD PRN (11:39)
[2019-06-06] MEDS: QUETIAPINE FUMARATE 100 MG TABLET NG SCH (21:29)
[2019-06-06] MEDS: CLONAZEPAM 1 MG TABLET NG SCH (21:30)
[2019-06-06] MEDS: BENZTROPINE MESYLATE 1 MG TABLET NG SCH (21:30)
[2019-06-06] MEDS: SIMVASTATIN 40 MG TABLET NG SCH (21:30)
[2019-06-07] MEDS: IPRATROPIUM BROMIDE 0.02% NEB 0.5 MG/2.5 ML AMPUL NEB SCH ×4 (00:13→23:44)
[2019-06-07] MEDS: LEVALBUTEROL HCL NEB 1.25 MG/3 ML AMPUL NEB SCH ×4 (00:13→23:44)
[2019-06-07] MEDS: DEXTROSE 5%-LACTATED RINGERS 1,000 ML IV PRN ×4 (01:21→16:48)
[2019-06-07] MEDS: CIPROFLOXACIN 400 MG/D5W RTU 400 MG/200 ML RTUPB IV SCH ×2 (05:12→16:48)
[2019-06-07 07:03] LABS: BLOOD UREA NITROGEN 4 mg/dL (7-20); CALCIUM 8.1 mg/dL (8.4-10.2); CARBON DIOXIDE 27 mmol/L (22-30); CHLORIDE 104 mmol/L (98-107); GLUCOSE 113 mg/dL (75-110); POTASSIUM 4.1 mmol/L (3.6-5.0)
[2019-06-07 07:06] LABS: ANION GAP 4 (5-19)
[2019-06-07] MEDS: ENOXAPARIN SODIUM INJ 40 MG/0.4 ML DISP.SYRIN SUBCUT SCH (08:09)
[2019-06-07] MEDS: PANTOPRAZOLE SODIUM 40 MG VIAL IV SCH (09:31)
[2019-06-07] MEDS: FLUOXETINE HCL 20 MG/5 ML UDCUP NG SCH (09:31)
[2019-06-07] MEDS: NORMAL SALINE 10 ML SDV (SCHEDULED) IV SCH ×2 (09:32→22:21)
[2019-06-07] MEDS: POTASSIUM CHLORIDE 20 MEQ PACKET NG SCH (09:32)
--- NOTE | 2019-06-07 10:29 | PDOC PROGRESS REPORT ---
Subjective Progress Note for:: 06/07/19 Subjective:: still with abdominal pains Has more formed stools Reason For Visit: SEVERE HYPOKALEMIA, INTRACTABLE DIARRHEA Physical Exam Vital Signs: Temp Pulse Resp BP Pulse Ox 97.5 F 87 16 117/79 94 06/07/19 08:10 06/07/19 08:14 06/07/19 08:14 06/07/19 08:10 06/07/19 08:14 Intake & Output 06/06/19 06/07/19 06/08/19 06:59 06:59 06:59 Intake Total 2450 3350 1200 Output Total 1750 3015 Balance 339 201 7629 Weight 57 kg 43.4 kg Exam: NGT about 1800 past 24 hrs Abdomen is soft with minimal distention and mild diffuse tenderness Results Laboratory Results: 06/05/19 06:20 06/07/19 06:07 06/07/19 06:07 Sodium 134.5 L Potassium 4.1 Chloride 104 Carbon Dioxide 27 Anion Gap 4 L BUN 4 L Creatinine 0.44 L Est GFR ( Amer) > 60 Glucose 113 H Calcium 8.1 L 06/01/19 18:10 Blood Blood Culture - Final NO GROWTH IN 5 DAYS 06/01/19 12:04 Blood Blood Culture - Final NO GROWTH IN 5 DAYS 06/01/19 06/01/19 12:04 12:04 Creatine Kinase 35 Troponin I < 0.012 Impressions: Abdomen/Pelvis CT 06/01/19 14:16 IMPRESSION: 1. Status post right hemicolectomy with ileocolic anastomosis. Since the previous study there has been development of thickening of mucosa of multiple loops of distal small bowel with a moderate amount of fluid noted in large and small bowel. The possibility of an enteritis must be considered. In addition given dilatation of small bowel loops follow-up indicated to exclude partial obstruction. 2. Since previous study there is been increase in intrahepatic and extrahepatic biliary dilatation. Clinical correlation with liver enzymes indicated. 3. There is again evidence of an infrarenal abdominal aortic aneurysm measuring 4 x 4.1 by 4.1 cm. AAA Size: Follow-up Recommendation 4.0-4.4 cm Every 12 months, vascular consultation recommended *Based upon the Society for Vascular Surgery Guidelines: J Vasc Surg. 2009 Oct;50(4 Suppl):S2-49 *For aortas of maximum diameter of 2.6-2.9 cm meeting the criteria for AAA (?1.5 x proximal normal segment) Chest/Abdomen CTA 06/03/19 00:00 IMPRESSION: Nearly nondiagnostic exam for the assessment of pulmonary embolus. No large or central pulmonary embolus. Small bibasilar effusions with adjacent consolidation. Mild distention of the esophagus with food/debris in the esophagus. Partial visualization of dilated fluid-filled loop of small bowel in the right upper quadrant. Question air/pneumatosis associated with the wall of the small bowel in the right upper quadrant. Recommend further assessment with dedicated CT abdomen/pelvis. Small amount of ascites. TECHNICAL DOCUMENTATION: Quality ID # 436: Final reports with documentation of one or more dose reduction techniques (e.g., Automated exposure control, adjustment of the mA and/or kV according to patient size, use of iterative reconstruction technique) copyright 2010 [employer]- All Rights Reserved Upper GI and Small Bowel X-Ray 06/03/19 07:00 IMPRESSION: 1. Markedly distended small bowel loops throughout the abdomen measuring up to 6.0 cm most compatible with small bowel obstructive process. 2. Postsurgical changes from the right hemicolectomy with significant delay in contrast passage. There is questionable opacification of colonic loops within the deep pelvis on the 18 hour films. Evaluation severely limited secondary to multiple overlying contrast containing small bowel loops and dilution of contrast. Chest X-Ray 06/04/19 00:00 IMPRESSION: 1. Nasoenteric tube coiled over gastric fundus with distal tip overlying proximal duodenum. 2. Minimal bibasilar opacities and likely small bilateral effusions. 3. Persistent multiple loops of dilated small bowel, not significantly changed from prior. Guidance Fluoroscopy 06/04/19 00:00 IMPRESSION: SUCCESSFUL PLACEMENT OF A 5 FR DUAL LUMEN 35 CM PICC IN THE LEFT BASILIC VEIN. Interventional Vascular Procedure 06/04/19 00:00 IMPRESSION: SUCCESSFUL PLACEMENT OF A 5 FR DUAL LUMEN 35 CM PICC IN THE LEFT BASILIC VEIN. PICC Line Insertion 06/04/19 00:00 IMPRESSION: SUCCESSFUL PLACEMENT OF A 5 FR DUAL LUMEN 35 CM PICC IN THE LEFT BASILIC VEIN. Abdomen X-Ray 06/05/19 00:00 IMPRESSION: Persistent small-bowel distention filled with contrast. No definite contrast within the colon. Findings remain consistent with at least partial obstruction if not complete. KUB X-Ray 06/06/19 06:00 IMPRESSION: Small amount of barium is now seen in the transverse colon and rectosigmoid. Findings discussed with Dr. Berman Assessment & Plan - Diagnosis (1) Abdominal pain Qualifiers: Abdominal location: periumbilical Qualified Code(s): R10.33 - Periumbilical pain Is this a current diagnosis for this admission?: Yes (2) Salmonella enteritis Is this a current diagnosis for this admission?: Yes - Time Time Spent with patient: 15-24 minutes - Inpatient Certification Medical Necessity: Need For IV Fluids, Need For Continuous Telemetry Monitoring, Need for IV Antibiotics, Risk of Complication if Not Cared For in Hospital - Plan Summary Plan Summary: NGT still draining but with BM Will check drainage today and if slows down will try to clamp x 8 hrs to see if drainage slows down when put back to suction. If she fails then will need TPN. On her 6th day of admission today D/W hospitalist
--- NOTE | 2019-06-07 14:11 | PDOC PROGRESS REPORT ---
Subjective Progress Note for:: 06/06/19 Subjective:: No adverse event overnight. Reason For Visit: SEVERE HYPOKALEMIA, INTRACTABLE DIARRHEA Physical Exam Vital Signs: Temp Pulse Resp BP Pulse Ox 97.5 F 87 16 117/79 94 06/07/19 08:10 06/07/19 08:14 06/07/19 08:14 06/07/19 08:10 06/07/19 08:14 Intake & Output 06/06/19 06/07/19 06/08/19 06:59 06:59 06:59 Intake Total 2450 3350 1200 Output Total 1750 3015 Balance 052 132 6299 Weight 57 kg 43.4 kg General appearance: PRESENT: no acute distress Head exam: PRESENT: atraumatic Mouth exam: PRESENT: moist, tongue midline Teeth exam: PRESENT: edentulous Neck exam: ABSENT: carotid bruit, JVD, lymphadenopathy, thyromegaly Respiratory exam: PRESENT: clear to auscultation poonam. ABSENT: rales, rhonchi, wheezes Cardiovascular exam: PRESENT: RRR. ABSENT: diastolic murmur, rubs, systolic murmur Pulses: PRESENT: normal dorsalis pedis pul GI/Abdominal exam: PRESENT: normal bowel sounds, soft. ABSENT: distended, guarding, mass, organolmegaly, rebound, tenderness Results Laboratory Results: 06/05/19 06:20 06/07/19 06:07 06/07/19 06:07 Sodium 134.5 L Potassium 4.1 Chloride 104 Carbon Dioxide 27 Anion Gap 4 L BUN 4 L Creatinine 0.44 L Est GFR ( Amer) > 60 Glucose 113 H Calcium 8.1 L 06/01/19 18:10 Blood Blood Culture - Final NO GROWTH IN 5 DAYS 06/01/19 12:04 Blood Blood Culture - Final NO GROWTH IN 5 DAYS 06/01/19 06/01/19 12:04 12:04 Creatine Kinase 35 Troponin I < 0.012 Impressions: Abdomen/Pelvis CT 06/01/19 14:16 IMPRESSION: 1. Status post right hemicolectomy with ileocolic anastomosis. Since the previous study there has been development of thickening of mucosa of multiple loops of distal small bowel with a moderate amount of fluid noted in large and small bowel. The possibility of an enteritis must be considered. In addition given dilatation of small bowel loops follow-up indicated to exclude partial obstruction. 2. Since previous study there is been increase in intrahepatic and extrahepatic biliary dilatation. Clinical correlation with liver enzymes indicated. 3. There is again evidence of an infrarenal abdominal aortic aneurysm measuring 4 x 4.1 by 4.1 cm. AAA Size: Follow-up Recommendation 4.0-4.4 cm Every 12 months, vascular consultation recommended *Based upon the Society for Vascular Surgery Guidelines: J Vasc Surg. 2009 Oct;50(4 Suppl):S2-49 *For aortas of maximum diameter of 2.6-2.9 cm meeting the criteria for AAA (?1.5 x proximal normal segment) Chest/Abdomen CTA 06/03/19 00:00 IMPRESSION: Nearly nondiagnostic exam for the assessment of pulmonary embolus. No large or central pulmonary embolus. Small bibasilar effusions with adjacent consolidation. Mild distention of the esophagus with food/debris in the esophagus. Partial visualization of dilated fluid-filled loop of small bowel in the right upper quadrant. Question air/pneumatosis associated with the wall of the small bowel in the right upper quadrant. Recommend further assessment with dedicated CT abdomen/pelvis. Small amount of ascites. TECHNICAL DOCUMENTATION: Quality ID # 436: Final reports with documentation of one or more dose reduction techniques (e.g., Automated exposure control, adjustment of the mA and/or kV according to patient size, use of iterative reconstruction technique) copyright 2011 [employer] All Rights Reserved Upper GI and Small Bowel X-Ray 06/03/19 07:00 IMPRESSION: 1. Markedly distended small bowel loops throughout the abdomen measuring up to 6.0 cm most compatible with small bowel obstructive process. 2. Postsurgical changes from the right hemicolectomy with significant delay in contrast passage. There is questionable opacification of colonic loops within the deep pelvis on the 18 hour films. Evaluation severely limited secondary to multiple overlying contrast containing small bowel loops and dilution of contrast. Chest X-Ray 06/04/19 00:00 IMPRESSION: 1. Nasoenteric tube coiled over gastric fundus with distal tip overlying proximal duodenum. 2. Minimal bibasilar opacities and likely small bilateral effusions. 3. Persistent multiple loops of dilated small bowel, not significantly changed from prior. Guidance Fluoroscopy 06/04/19 00:00 IMPRESSION: SUCCESSFUL PLACEMENT OF A 5 FR DUAL LUMEN 35 CM PICC IN THE LEFT BASILIC VEIN. Interventional Vascular Procedure 06/04/19 00:00 IMPRESSION: SUCCESSFUL PLACEMENT OF A 5 FR DUAL LUMEN 35 CM PICC IN THE LEFT BASILIC VEIN. PICC Line Insertion 06/04/19 00:00 IMPRESSION: SUCCESSFUL PLACEMENT OF A 5 FR DUAL LUMEN 35 CM PICC IN THE LEFT BASILIC VEIN. Abdomen X-Ray 06/05/19 00:00 IMPRESSION: Persistent small-bowel distention filled with contrast. No definite contrast within the colon. Findings remain consistent with at least partial obstruction if not complete. KUB X-Ray 06/06/19 06:00 IMPRESSION: Small amount of barium is now seen in the transverse colon and rectosigmoid. Findings discussed with Dr. Berman Assessment and Plan - Diagnosis (1) Small bowel obstruction Is this a current diagnosis for this admission?: Yes Plan: Her small bowel series reported as markedly distended small bowel loops throughout the abdomen, measuring up to 6 cm most compatible with a small bowel obstructive process. Nothing is mentioned whether it is complete or partial. Patient kept n.p.o. and NG tube has been inserted to drain. Surgical team has been following the patient. (2) Intractable diarrhea Is this a current diagnosis for this admission?: Yes Plan: Has be resolving (3) Severe hypokalemia Is this a current diagnosis for this admission?: Yes Plan: Has resolved (4) Acute metabolic encephalopathy Is this a current diagnosis for this admission?: Yes Plan: No change so far (5) COPD (chronic obstructive pulmonary disease) Qualifiers: Emphysema type: unspecified Is this a current diagnosis for this admission?: Yes Plan: I will put her on PRN bronchodilators. (6) Chronic pancreatitis Qualifiers: Pancreatitis type: alcohol induced Qualified Code(s): K86.0 - Alcohol- induced chronic pancreatitis Is this a current diagnosis for this admission?: Yes Plan: Her lipase within normal limits. We will continue her pain medication. (7) Coronary artery disease Qualifiers: Associated angina: without angina Is this a current diagnosis for this admission?: Yes Plan: Continue home meds (8) Hypertension Qualifiers: Hypertension type: essential hypertension Qualified Code(s): I10 - Essential (primary) hypertension Is this a current diagnosis for this admission?: Yes Plan: Continue home meds (9) Tobacco dependence Is this a current diagnosis for this admission?: Yes Plan: Patient will be counseled and encouraged to quit smoking. Is a meantime we will put her on nicotine patch.
--- NOTE | 2019-06-07 14:17 | PDOC PROGRESS REPORT ---
Subjective Progress Note for:: 06/07/19 Subjective:: PETERSON MONTOYA is a 58 year old female patient with past medical history of coronary artery disease, hyperlipidemia, COPD, alcohol induced chronic pancreatitis, anxiety depression, history of colon CA in 2004 and status post partial colectomy and history of right kidney renal cell carcinoma in 2006 status post partial nephrectomy, tobacco dependence, infrarenal AAA, presented with chief complaint of altered mental status 1 day duration, and nausea and vomiting of 3 days duration. Since patient is confused brief history is obtained from her who is in the room during my encounter. states that the vomiting subsided on the next day but still she has watery nonbloody diarrhea very frequent. states eating out. The states that patient is sober but she smokes about half a pack a day. No reports of fever chills palpitation or diaphoresis. No urinary complaints. Her stool for C. difficile colitis is negative. Her CBC is unremarkable her BMP shows hypokalemia with potassium of 2.3. CT scan of the abdomen is pending. 06/02/2019: Patient seen and examined while resting in bed. She is more awake alert but still she has some confusion. The frequency of her diarrhea is decreasing. Her potassium dropped further from 2.32.2 and the final was 2.9. Additional keratitis ordered. I reviewed her home medication and reconciled. Her CT scan of the abdomen reported as status post right hemicolectomy with ileocolic anastomosis since the previous study there has been development of thickening of mucosa of multiple loops of distal small bowel with a moderate amount of fluid noted in the large and small bowel. The possibility of an enteritis mass to be considered. In addition given dilation of small bowel loo ps follow-up indicated to exclude partial obstruction. 06/03/2019: Patient is a awake alert and she is mildly confused. Yesterday night patient had an episode of tachycardia douglas and tachycardia and local physician requested CTA of the chest and acute pulmonary embolism has been ruled out. This morning patient seen lying in bed she has abdominal distention and it is tympanic to percussion. Dr. Atkins communicated with me that patient has small bowel dilation. Dr. Ortiz also evaluating the patient for possible partial intestinal obstruction. Her potassium is improving. 06/04/2019: Patient seen while she is resting in bed. She is awake alert but she has depressed mood. Her labs shows hypokalemia yesterday her potassium was 3.3 today it becomes 2.8. Microbiology notified me that her stool cultures positive for Salmonella species. Patient started on Zosyn empirically. The r ole of antibiotics in patients with Salmonella enteritis is controversial. Her small bowel series reported as markedly distended small bowel loops throughout the abdomen measuring up to 6 cm most compatible with small bowel obstruction. Patient kept n.p.o. NG tube inserted. 06/05/2019: Patient seen and examined while she is resting in bed comfortably. Today she is more awake alert and conversant. NG tube is in situ and draining thick yellowish material. Labs reviewed and her white cell counts improved and her hypokalemia is corrected. I change her IV fluid to D5W and Ringer lactate. Her stool culture is positive for Salmonella species and sensitive to ampicillin, quinolones and Bactrim. Her Zosyn is switched to Cipro. 06/07/2019: Patient seen propped up in bed. She is awake alert. No new complaints. Patient is anxious to go home. Patient is reevaluated by Dr. Berman who states that he will check drainage today and if slows down we will try to clamp for 8 hours to see if drainage slows down when put back to suction. If she fails then will need to pain. Reason For Visit: SEVERE HYPOKALEMIA, INTRACTABLE DIARRHEA Physical Exam Vital Signs: Temp Pulse Resp BP Pulse Ox 97.5 F 87 16 117/79 94 06/07/19 08:10 06/07/19 08:14 06/07/19 08:14 06/07/19 08:10 06/07/19 08:14 Intake & Output 06/06/19 06/07/19 06/08/19 06:59 06:59 06:59 Intake Total 2450 3350 1200 Output Total 1750 3015 Balance 368 915 9810 Weight 57 kg 43.4 kg General appearance: PRESENT: no acute distress, cooperative, thin Cardiovascular exam: PRESENT: RRR. ABSENT: diastolic murmur, rubs, systolic murmur Pulses: PRESENT: normal dorsalis pedis pul GI/Abdominal exam: PRESENT: normal bowel sounds, soft. ABSENT: distended, guarding, mass, organolmegaly, rebound, tenderness Neurological exam: PRESENT: alert Results Laboratory Results: 06/05/19 06:20 06/07/19 06:07 06/07/19 06:07 Sodium 134.5 L Potassium 4.1 Chloride 104 Carbon Dioxide 27 Anion Gap 4 L BUN 4 L Creatinine 0.44 L Est GFR ( Amer) > 60 Glucose 113 H Calcium 8.1 L 06/01/19 18:10 Blood Blood Culture - Final NO GROWTH IN 5 DAYS 06/01/19 12:04 Blood Blood Culture - Final NO GROWTH IN 5 DAYS 06/01/19 06/01/19 12:04 12:04 Creatine Kinase 35 Troponin I < 0.012 Impressions: Abdomen/Pelvis CT 06/01/19 14:16 IMPRESSION: 1. Status post right hemicolectomy with ileocolic anastomosis. Since the previous study there has been development of thickening of mucosa of multiple loops of distal small bowel with a moderate amount of fluid noted in large and small bowel. The possibility of an enteritis must be considered. In addition given dilatation of small bowel loops follow-up indicated to exclude partial obstruction. 2. Since previous study there is been increase in intrahepatic and extrahepatic biliary dilatation. Clinical correlation with liver enzymes indicated. 3. There is again evidence of an infrarenal abdominal aortic aneurysm measuring 4 x 4.1 by 4.1 cm. AAA Size: Follow-up Recommendation 4.0-4.4 cm Every 12 months, vascular consultation recommended *Based upon the Society for Vascular Surgery Guidelines: J Vasc Surg. 2009 Oct;50(4 Suppl):S2-49 *For aortas of maximum diameter of 2.6-2.9 cm meeting the criteria for AAA (?1.5 x proximal normal segment) Chest/Abdomen CTA 06/03/19 00:00 IMPRESSION: Nearly nondiagnostic exam for the assessment of pulmonary embolus. No large or central pulmonary embolus. Small bibasilar effusions with adjacent consolidation. Mild distention of the esophagus with food/debris in the esophagus. Partial visualization of dilated fluid-filled loop of small bowel in the right upper quadrant. Question air/pneumatosis associated with the wall of the small bowel in the right upper quadrant. Recommend further assessment with dedicated CT abdomen/pelvis. Small amount of ascites. TECHNICAL DOCUMENTATION: Quality ID # 436: Final reports with documentation of one or more dose reduction techniques (e.g., Automated exposure control, adjustment of the mA and/or kV according to patient size, use of iterative reconstruction technique) copyright 2011 [employer]- All Rights Reserved Upper GI and Small Bowel X-Ray 06/03/19 07:00 IMPRESSION: 1. Markedly distended small bowel loops throughout the abdomen measuring up to 6.0 cm most compatible with small bowel obstructive process. 2. Postsurgical changes from the right hemicolectomy with significant delay in contrast passage. There is questionable opacification of colonic loops within the deep pelvis on the 18 hour films. Evaluation severely limited secondary to multiple overlying contrast containing small bowel loops and dilution of contrast. Chest X-Ray 06/04/19 00:00 IMPRESSION: 1. Nasoenteric tube coiled over gastric fundus with distal tip overlying proximal duodenum. 2. Minimal bibasilar opacities and likely small bilateral effusions. 3. Persistent multiple loops of dilated small bowel, not significantly changed from prior. Guidance Fluoroscopy 06/04/19 00:00 IMPRESSION: SUCCESSFUL PLACEMENT OF A 5 FR DUAL LUMEN 35 CM PICC IN THE LEFT BASILIC VEIN. Interventional Vascular Procedure 06/04/19 00:00 IMPRESSION: SUCCESSFUL PLACEMENT OF A 5 FR DUAL LUMEN 35 CM PICC IN THE LEFT BASILIC VEIN. PICC Line Insertion 06/04/19 00:00 IMPRESSION: SUCCESSFUL PLACEMENT OF A 5 FR DUAL LUMEN 35 CM PICC IN THE LEFT BASILIC VEIN. Abdomen X-Ray 06/05/19 00:00 IMPRESSION: Persistent small-bowel distention filled with contrast. No definite contrast within the colon. Findings remain consistent with at least partial obstruction if not complete. KUB X-Ray 06/06/19 06:00 IMPRESSION: Small amount of barium is now seen in the transverse colon and rectosigmoid. Findings discussed with Dr. Berman Assessment and Plan - Diagnosis (1) Small bowel obstruction Is this a current diagnosis for this admission?: Yes Plan: Her small bowel series reported as markedly distended small bowel loops throughout the abdomen, measuring up to 6 cm most compatible with a small bowel obstructive process. Nothing is mentioned whether it is complete or partial. Patient kept n.p.o. and NG tube has been inserted to drain. Surgical team has been following the patient. (2) Intractable diarrhea Is this a current diagnosis for this admission?: Yes Plan: Has be resolving (3) Severe hypokalemia Is this a current diagnosis for this admission?: Yes Plan: Has resolved (4) Acute metabolic encephalopathy Is this a current diagnosis for this admission?: Yes Plan: No change so far (5) COPD (chronic obstructive pulmonary disease) Qualifiers: Emphysema type: unspecified Is this a current diagnosis for this admission?: Yes Plan: I will put her on PRN bronchodilators. (6) Chronic pancreatitis Qualifiers: Pancreatitis type: alcohol induced Qualified Code(s): K86.0 - Alcohol- induced chronic pancreatitis Is this a current diagnosis for this admission?: Yes Plan: Her lipase within normal limits. We will continue her pain medication. (7) Coronary artery disease Qualifiers: Associated angina: without angina Is this a current diagnosis for this admission?: Yes Plan: Continue home meds (8) Hypertension Qualifiers: Hypertension type: essential hypertension Qualified Code(s): I10 - Essential (primary) hypertension Is this a current diagnosis for this admission?: Yes Plan: Continue home meds (9) Tobacco dependence Is this a current diagnosis for this admission?: Yes Plan: Patient will be counseled and encouraged to quit smoking. Is a meantime we will put her on nicotine patch. (10) Moderate malnutrition Is this a current diagnosis for this admission?: Yes Plan: Her nutritional status compounded by her current acute situation. We will augment her nutritional status. (11) Debility and deconditioning Is this a current diagnosis for this admission?: Yes Plan: PT requested
[2019-06-07] MEDS: ONDANSETRON HCL INJ/PF 4 MG/2 ML SDV IV PRN ×2 (14:21→22:21)
[2019-06-07] MEDS: NICOTINE 21 MG/24 HR PATCH.TD24 TD PRN (16:45)
[2019-06-07] MEDS: MORPHINE SULFATE 10 MG/ML INJ IV PRN (16:47)
[2019-06-07] MEDS ORDERED: ACETAMINOPHEN 325 MG TABLET PO PRN (19:54)
[2019-06-07] MEDS ORDERED: DEXTROSE 40% GEL 15 GM TUBE PO PRN ×2 (20:00)
[2019-06-07] MEDS: QUETIAPINE FUMARATE 100 MG TABLET PO SCH (22:22)
[2019-06-07] MEDS: CLONAZEPAM 1 MG TABLET PO SCH (22:22)
[2019-06-07] MEDS: BENZTROPINE MESYLATE 1 MG TABLET PO SCH (22:23)
[2019-06-07] MEDS: POTASSIUM CHLORIDE 10 MEQ CAPSULE.ER PO SCH (22:23)
[2019-06-07] MEDS: SIMVASTATIN 40 MG TABLET PO SCH (22:24)
[2019-06-08] MEDS: DEXTROSE 5%-LACTATED RINGERS 1,000 ML IV PRN ×3 (01:11→16:58)
[2019-06-08] MEDS: CIPROFLOXACIN 400 MG/D5W RTU 400 MG/200 ML RTUPB IV SCH ×2 (05:12→17:44)
[2019-06-08] MEDS: LEVALBUTEROL HCL NEB 1.25 MG/3 ML AMPUL NEB SCH ×3 (08:37→23:58)
[2019-06-08] MEDS: IPRATROPIUM BROMIDE 0.02% NEB 0.5 MG/2.5 ML AMPUL NEB SCH ×3 (08:38→23:58)
--- NOTE | 2019-06-08 08:50 | PDOC PROGRESS REPORT ---
Subjective Progress Note for:: 06/08/19 Subjective:: Patient sleeping; tolerated clear liquids without nausea. Reason For Visit: SEVERE HYPOKALEMIA, INTRACTABLE DIARRHEA Physical Exam Vital Signs: Temp Pulse Resp BP Pulse Ox 98.2 F 78 18 118/78 94 06/08/19 07:52 06/08/19 07:52 06/08/19 07:52 06/08/19 07:52 06/08/19 07:52 Intake & Output 06/07/19 06/08/19 06/09/19 06:59 06:59 06:59 Intake Total 3350 4008 Output Total 3015 2800 Balance 335 1208 Weight 43.4 kg 53.8 kg General appearance: PRESENT: no acute distress, other - Patient sleeping but does arouse. GI/Abdominal exam: PRESENT: other - Soft, nontender, no peritoneal signs, no rigidity. Results Laboratory Results: 06/05/19 06:20 06/07/19 06:07 06/01/19 06/01/19 12:04 12:04 Creatine Kinase 35 Troponin I < 0.012 Impressions: Abdomen/Pelvis CT 06/01/19 14:16 IMPRESSION: 1. Status post right hemicolectomy with ileocolic anastomosis. Since the previous study there has been development of thickening of mucosa of multiple loops of distal small bowel with a moderate amount of fluid noted in large and small bowel. The possibility of an enteritis must be considered. In addition given dilatation of small bowel loops follow-up indicated to exclude partial obstruction. 2. Since previous study there is been increase in intrahepatic and extrahepatic biliary dilatation. Clinical correlation with liver enzymes indicated. 3. There is again evidence of an infrarenal abdominal aortic aneurysm measuring 4 x 4.1 by 4.1 cm. AAA Size: Follow-up Recommendation 4.0-4.4 cm Every 12 months, vascular consultation recommended *Based upon the Society for Vascular Surgery Guidelines: J Vasc Surg. 2009 Jul;50(4 Suppl):S2-49 *For aortas of maximum diameter of 2.6-2.9 cm meeting the criteria for AAA (?1.5 x proximal normal segment) Chest/Abdomen CTA 06/03/19 00:00 IMPRESSION: Nearly nondiagnostic exam for the assessment of pulmonary embolus. No large or central pulmonary embolus. Small bibasilar effusions with adjacent consolidation. Mild distention of the esophagus with food/debris in the esophagus. Partial visualization of dilated fluid-filled loop of small bowel in the right upper quadrant. Question air/pneumatosis associated with the wall of the small bowel in the right upper quadrant. Recommend further assessment with dedicated CT abdomen/pelvis. Small amount of ascites. TECHNICAL DOCUMENTATION: Quality ID # 436: Final reports with documentation of one or more dose reduction techniques (e.g., Automated exposure control, adjustment of the mA and/or kV according to patient size, use of iterative reconstruction technique) copyright 2011 [employer]- All Rights Reserved Upper GI and Small Bowel X-Ray 06/03/19 07:00 IMPRESSION: 1. Markedly distended small bowel loops throughout the abdomen measuring up to 6.0 cm most compatible with small bowel obstructive process. 2. Postsurgical changes from the right hemicolectomy with significant delay in contrast passage. There is questionable opacification of colonic loops within the deep pelvis on the 18 hour films. Evaluation severely limited secondary to multiple overlying contrast containing small bowel loops and dilution of contr ast. Chest X-Ray 06/04/19 00:00 IMPRESSION: 1. Nasoenteric tube coiled over gastric fundus with distal tip overlying proximal duodenum. 2. Minimal bibasilar opacities and likely small bilateral effusions. 3. Persistent multiple loops of dilated small bowel, not significantly changed from prior. Guidance Fluoroscopy 06/04/19 00:00 IMPRESSION: SUCCESSFUL PLACEMENT OF A 5 FR DUAL LUMEN 35 CM PICC IN THE LEFT BASILIC VEIN. Interventional Vascular Procedure 06/04/19 00:00 IMPRESSION: SUCCESSFUL PLACEMENT OF A 5 FR DUAL LUMEN 35 CM PICC IN THE LEFT BASILIC VEIN. PICC Line Insertion 06/04/19 00:00 IMPRESSION: SUCCESSFUL PLACEMENT OF A 5 FR DUAL LUMEN 35 CM PICC IN THE LEFT BASILIC VEIN. Abdomen X-Ray 06/05/19 00:00 IMPRESSION: Persistent small-bowel distention filled with contrast. No definite contrast within the colon. Findings remain consistent with at least partial obstruction if not complete. KUB X-Ray 06/06/19 06:00 IMPRESSION: Small amount of barium is now seen in the transverse colon and rectosigmoid. Findings discussed with Dr. Berman Assessment & Plan - Diagnosis (1) Salmonella enteritis Is this a current diagnosis for this admission?: Yes Plan: Impression: Clinically improved Salmonella enterocolitis on appropriate antimicrobial therapy, tolerating a diet; no evidence of sepsis Recommendations: 1. Continue current medical management 2. Surgery will sign off; reconsult surgery if clinically indicated.
[2019-06-08] MEDS: ENOXAPARIN SODIUM INJ 40 MG/0.4 ML DISP.SYRIN SUBCUT SCH (09:48)
[2019-06-08] MEDS: PANTOPRAZOLE SODIUM 40 MG VIAL IV SCH (10:01)
[2019-06-08] MEDS: POTASSIUM CHLORIDE 10 MEQ CAPSULE.ER PO SCH ×2 (10:01→22:14)
[2019-06-08] MEDS: FLUOXETINE HCL 20 MG/5 ML UDCUP PO SCH (10:01)
[2019-06-08] MEDS: NORMAL SALINE 10 ML SDV (SCHEDULED) IV SCH ×2 (10:03→22:19)
[2019-06-08] MEDS: NICOTINE 21 MG/24 HR PATCH.TD24 TD PRN (10:03)
[2019-06-08] MEDS: OXYCODONE-ACETAMINOPHEN 5-325 MG TABLET PO PRN ×3 (11:58→22:17)
--- NOTE | 2019-06-08 13:16 | PDOC PROGRESS REPORT ---
Subjective Progress Note for:: 06/08/19 Subjective:: PETERSON MONTOYA is a 58 year old female patient with past medical history of coronary artery disease, hyperlipidemia, COPD, alcohol induced chronic pancreatitis, anxiety depression, history of colon CA in 2004 and status post partial colectomy and history of right kidney renal cell carcinoma in 2006 status post partial nephrectomy, tobacco dependence, infrarenal AAA, presented with chief complaint of altered mental status 1 day duration, and nausea and vomiting of 3 days duration. Since patient is confused brief history is obtained from her who is in the room during my encounter. states that the vomiting subsided on the next day but still she has watery nonbloody diarrhea very frequent. states eating out. The states that patient is sober but she smokes about half a pack a day. No reports of fever chills palpitation or diaphoresis. No urinary complaints. Her stool for C. difficile colitis is negative. Her CBC is unremarkable her BMP shows hypokalemia with potassium of 2.3. CT scan of the abdomen is pending. 06/02/2019: Patient seen and examined while resting in bed. She is more awake alert but still she has some confusion. The frequency of her diarrhea is decreasing. Her potassium dropped further from 2.32.2 and the final was 2.9. Additional keratitis ordered. I reviewed her home medication and reconciled. Her CT scan of the abdomen reported as status post right hemicolectomy with ileocolic anastomosis since the previous study there has been development of thickening of mucosa of multiple loops of distal small bowel with a moderate amount of fluid noted in the large and small bowel. The possibility of an enteritis mass to be considered. In addition given dilation of small bowel loo ps follow-up indicated to exclude partial obstruction. 06/03/2019: Patient is a awake alert and she is mildly confused. Yesterday night patient had an episode of tachycardia douglas and tachycardia and local physician requested CTA of the chest and acute pulmonary embolism has been ruled out. This morning patient seen lying in bed she has abdominal distention and it is tympanic to percussion. Dr. Atkins communicated with me that patient has small bowel dilation. Dr. Ortiz also evaluating the patient for possible partial intestinal obstruction. Her potassium is improving. 06/04/2019: Patient seen while she is resting in bed. She is awake alert but she has depressed mood. Her labs shows hypokalemia yesterday her potassium was 3.3 today it becomes 2.8. Microbiology notified me that her stool cultures positive for Salmonella species. Patient started on Zosyn empirically. The r ole of antibiotics in patients with Salmonella enteritis is controversial. Her small bowel series reported as markedly distended small bowel loops throughout the abdomen measuring up to 6 cm most compatible with small bowel obstruction. Patient kept n.p.o. NG tube inserted. 06/05/2019: Patient seen and examined while she is resting in bed comfortably. Today she is more awake alert and conversant. NG tube is in situ and draining thick yellowish material. Labs reviewed and her white cell counts improved and her hypokalemia is corrected. I change her IV fluid to D5W and Ringer lactate. Her stool culture is positive for Salmonella species and sensitive to ampicillin, quinolones and Bactrim. Her Zosyn is switched to Cipro. 06/07/2019: Patient seen propped up in bed. She is awake alert. No new complaints. Patient is anxious to go home. Patient is reevaluated by Dr. Berman who states that he will check drainage today and if slows down we will try to clamp for 8 hours to see if drainage slows down when put back to suction. 06/08/2019: Patient seen resting in bed comfortably she is awake alert oriented. Her NG tube removed and patient started on ice chips and later transitioned to clear liquids. Her diarrhea has subsided. Patient also able to walk 8 feet with physical therapist. Reason For Visit: SEVERE HYPOKALEMIA, INTRACTABLE DIARRHEA Physical Exam Vital Signs: Temp Pulse Resp BP Pulse Ox 97.9 F 90 16 109/69 93 06/08/19 11:42 06/08/19 11:42 06/08/19 11:42 06/08/19 11:42 06/08/19 11:42 Intake & Output 06/07/19 06/08/19 06/09/19 06:59 06:59 06:59 Intake Total 3350 4008 1500 Output Total 3015 2800 Balance 335 1208 1500 Weight 43.4 kg 53.8 kg Results Laboratory Results: 06/05/19 06:20 06/07/19 06:07 06/01/19 06/01/19 12:04 12:04 Creatine Kinase 35 Troponin I < 0.012 Impressions: Abdomen/Pelvis CT 06/01/19 14:16 IMPRESSION: 1. Status post right hemicolectomy with ileocolic anastomosis. Since the previous study there has been development of thickening of mucosa of multiple loops of distal small bowel with a moderate amount of fluid noted in large and small bowel. The possibility of an enteritis must be considered. In addition given dilatation of small bowel loops follow-up indicated to exclude partial obstruction. 2. Since previous study there is been increase in intrahepatic and extrahepatic biliary dilatation. Clinical correlation with liver enzymes indicated. 3. There is again evidence of an infrarenal abdominal aortic aneurysm measuring 4 x 4.1 by 4.1 cm. AAA Size: Follow-up Recommendation 4.0-4.4 cm Every 12 months, vascular consultation recommended *Based upon the Society for Vascular Surgery Guidelines: J Vasc Surg. 2009 Jul;50(4 Suppl):S2-49 *For aortas of maximum diameter of 2.6-2.9 cm meeting the criteria for AAA (?1.5 x proximal normal segment) Chest/Abdomen CTA 06/03/19 00:00 IMPRESSION: Nearly nondiagnostic exam for the assessment of pulmonary embolus. No large or central pulmonary embolus. Small bibasilar effusions with adjacent consolidation. Mild distention of the esophagus with food/debris in the esophagus. Partial visualization of dilated fluid-filled loop of small bowel in the right upper quadrant. Question air/pneumatosis associated with the wall of the small bowel in the right upper quadrant. Recommend further assessment with dedicated CT abdomen/pelvis. Small amount of ascites. TECHNICAL DOCUMENTATION: Quality ID # 436: Final reports with documentation of one or more dose reduction techniques (e.g., Automated exposure control, adjustment of the mA and/or kV according to patient size, use of iterative reconstruction technique) copyright 2011 [employer]- All Rights Reserved Upper GI and Small Bowel X-Ray 06/03/19 07:00 IMPRESSION: 1. Markedly distended small bowel loops throughout the abdomen measuring up to 6.0 cm most compatible with small bowel obstructive process. 2. Postsurgical changes from the right hemicolectomy with significant delay in contrast passage. There is questionable opacification of colonic loops within the deep pelvis on the 18 hour films. Evaluation severely limited secondary to multiple overlying contrast containing small bowel loops and dilution of c ontrast. Chest X-Ray 06/04/19 00:00 IMPRESSION: 1. Nasoenteric tube coiled over gastric fundus with distal tip overlying proximal duodenum. 2. Minimal bibasilar opacities and likely small bilateral effusions. 3. Persistent multiple loops of dilated small bowel, not significantly changed from prior. Guidance Fluoroscopy 06/04/19 00:00 IMPRESSION: SUCCESSFUL PLACEMENT OF A 5 FR DUAL LUMEN 35 CM PICC IN THE LEFT BASILIC VEIN. Interventional Vascular Procedure 06/04/19 00:00 IMPRESSION: SUCCESSFUL PLACEMENT OF A 5 FR DUAL LUMEN 35 CM PICC IN THE LEFT BASILIC VEIN. PICC Line Insertion 06/04/19 00:00 IMPRESSION: SUCCESSFUL PLACEMENT OF A 5 FR DUAL LUMEN 35 CM PICC IN THE LEFT BASILIC VEIN. Abdomen X-Ray 06/05/19 00:00 IMPRESSION: Persistent small-bowel distention filled with contrast. No definite contrast within the colon. Findings remain consistent with at least partial obstruction if not complete. KUB X-Ray 06/06/19 06:00 IMPRESSION: Small amount of barium is now seen in the transverse colon and re ctosigmoid. Findings discussed with Dr. Berman Assessment and Plan - Diagnosis (1) Small bowel obstruction Is this a current diagnosis for this admission?: Yes Plan: Has resolved (2) Intractable diarrhea Is this a current diagnosis for this admission?: Yes Plan: Stool culture positive for Salmonella. Patient has been on IV Cipro. (3) Severe hypokalemia Is this a current diagnosis for this admission?: Yes Plan: Has resolved (4) Acute metabolic encephalopathy Is this a current diagnosis for this admission?: Yes Plan: No change so far (5) COPD (chronic obstructive pulmonary disease) Qualifiers: Emphysema type: unspecified Is this a current diagnosis for this admission?: Yes Plan: I will put her on PRN bronchodilators. (6) Chronic pancreatitis Qualifiers: Pancreatitis type: alcohol induced Qualified Code(s): K86.0 - Alcohol- induced chronic pancreatitis Is this a current diagnosis for this admission?: Yes Plan: Her lipase within normal limits. We will continue her pain medication. (7) Coronary artery disease Qualifiers: Associated angina: without angina Is this a current diagnosis for this admission?: Yes Plan: Continue home meds (8) Hypertension Qualifiers: Hypertension type: essential hypertension Qualified Code(s): I10 - Essential (primary) hypertension Is this a current diagnosis for this admission?: Yes Plan: Continue home meds (9) Tobacco dependence Is this a current diagnosis for this admission?: Yes Plan: Patient will be counseled and encouraged to quit smoking. Is a meantime we will put her on nicotine patch. (10) Moderate malnutrition Is this a current diagnosis for this admission?: Yes Plan: Her nutritional status compounded by her current acute situation. We will augment her nutritional status. (11) Debility and deconditioning Is this a current diagnosis for this admission?: Yes Plan: PT requested
[2019-06-08] MEDS: MORPHINE SULFATE 10 MG/ML INJ IV PRN (20:30)
[2019-06-08] MEDS: BENZTROPINE MESYLATE 1 MG TABLET PO SCH (22:14)
[2019-06-08] MEDS: CLONAZEPAM 1 MG TABLET PO SCH (22:17)
[2019-06-08] MEDS: SIMVASTATIN 40 MG TABLET PO SCH (22:17)
[2019-06-08] MEDS: QUETIAPINE FUMARATE 100 MG TABLET PO SCH (22:18)
[2019-06-09] MEDS: CIPROFLOXACIN 400 MG/D5W RTU 400 MG/200 ML RTUPB IV SCH ×2 (05:44→17:53)
[2019-06-09] MEDS: IPRATROPIUM BROMIDE 0.02% NEB 0.5 MG/2.5 ML AMPUL NEB SCH ×2 (08:33→15:54)
[2019-06-09] MEDS: LEVALBUTEROL HCL NEB 1.25 MG/3 ML AMPUL NEB SCH ×2 (08:33→15:54)
[2019-06-09] MEDS: POTASSIUM CHLORIDE 10 MEQ CAPSULE.ER PO SCH ×2 (10:09→21:52)
[2019-06-09] MEDS: OXYCODONE-ACETAMINOPHEN 5-325 MG TABLET PO PRN ×3 (10:09→22:01)
[2019-06-09] MEDS: FLUOXETINE HCL 20 MG/5 ML UDCUP PO SCH (10:10)
[2019-06-09] MEDS: PANTOPRAZOLE SODIUM 40 MG VIAL IV SCH (10:10)
[2019-06-09] MEDS: NORMAL SALINE 10 ML SDV (SCHEDULED) IV SCH ×2 (10:12→21:53)
[2019-06-09] MEDS: NICOTINE 21 MG/24 HR PATCH.TD24 TD PRN (10:26)
[2019-06-09] MEDS: ENOXAPARIN SODIUM INJ 40 MG/0.4 ML DISP.SYRIN SUBCUT SCH (12:33)
[2019-06-09] MEDS: DEXTROSE 5%-LACTATED RINGERS 1,000 ML IV PRN ×3 (13:19→22:16)
[2019-06-09] MEDS: MORPHINE SULFATE 10 MG/ML INJ IV PRN (13:44)
--- NOTE | 2019-06-09 13:57 | PDOC PROGRESS REPORT ---
Subjective Progress Note for:: 06/09/19 Subjective:: PETERSON MONTOYA is a 58 year old female patient with past medical history of coronary artery disease, hyperlipidemia, COPD, alcohol induced chronic pancreatitis, anxiety depression, history of colon CA in 2004 and status post partial colectomy and history of right kidney renal cell carcinoma in 2006 status post partial nephrectomy, tobacco dependence, infrarenal AAA, presented with chief complaint of altered mental status 1 day duration, and nausea and vomiting of 3 days duration. Since patient is confused brief history is obtained from her who is in the room during my encounter. states that the vomiting subsided on the next day but still she has watery nonbloody diarrhea very frequent. states eating out. The states that patient is sober but she smokes about half a pack a day. No reports of fever chills palpitation or diaphoresis. No urinary complaints. Her stool for C. difficile colitis is negative. Her CBC is unremarkable her BMP shows hypokalemia with potassium of 2.3. CT scan of the abdomen is pending. 06/02/2019: Patient seen and examined while resting in bed. She is more awake alert but still she has some confusion. The frequency of her diarrhea is decreasing. Her potassium dropped further from 2.32.2 and the final was 2.9. Additional K-RIDER ordered. I reviewed her home medication and reconciled. Her CT scan of the abdomen reported as status post right hemicolectomy with ileocolic anastomosis since the previous study there has been development of thickening of mucosa of multiple loops of distal small bowel with a moderate amount of fluid noted in the large and small bowel. The possibility of an enteritis mass to be considered. In addition given dilation of small bowel loops follow-up indicated to exclude partial obstruction. 06/03/2019: Patient is a awake alert and she is mildly confused. Yesterday night patient had an episode of tachycardia douglas and tachycardia and local physician requested CTA of the chest and acute pulmonary embolism has been ruled out. This morning patient seen lying in bed she has abdominal distention and it is tympanic to percussion. Dr. Atkins communicated with me that patient has small bowel dilation. Dr. Ortiz also evaluating the patient for possible partial intestinal obstruction. Her potassium is improving. 06/04/2019: Patient seen while she is resting in bed. She is awake alert but she has depressed mood. Her labs shows hypokalemia yesterday her potassium was 3.3 today it becomes 2.8. Microbiology notified me that her stool cultures positive for Salmonella species. Patient started on Zosyn empirically. The rol e of antibiotics in patients with Salmonella enteritis is controversial. Her small bowel series reported as markedly distended small bowel loops throughout the abdomen measuring up to 6 cm most compatible with small bowel obstruction. Patient kept n.p.o. NG tube inserted. 06/05/2019: Patient seen and examined while she is resting in bed comfortably. Today she is more awake alert and conversant. NG tube is in situ and draining thick yellowish material. Labs reviewed and her white cell counts improved and her hypokalemia is corrected. I change her IV fluid to D5W and Ringer lactate. Her stool culture is positive for Salmonella species and sensitive to ampicillin, quinolones and Bactrim. Her Zosyn is switched to Cipro. 06/07/2019: Patient seen propped up in bed. She is awake alert. No new complaints. Patient is anxious to go home. Patient is reevaluated by Dr. Berman who states that he will check drainage today and if slows down we will try to clamp for 8 hours to see if drainage slows down when put back to suction. 06/08/2019: Patient seen resting in bed comfortably she is awake alert oriented. Her NG tube removed and patient started on ice chips and later transitioned to clear liquids. Her diarrhea has subsided. Patient also able to walk 8 feet with physical therapist. 06/09/2019: This is 58 years old female patient admitted for tractable nausea vomiting abdominal pain and watery diarrhea diarrhea and severe hypokalemia. Her small bowel series ruled out small bowel obstruction. Her stool culture positive for Salmonella species which is sensitive to ampicillin, quinolones, and Bactrim. Initially patient was started on Zosyn later switched to Cipro. Yesterday patient was started on clear liquid diet today she is transition to full liquid. Once she tolerates solid food patient can be discharged safely in the coming 24 to 48 hours. Reason For Visit: SEVERE HYPOKALEMIA, INTRACTABLE DIARRHEA Physical Exam Vital Signs: Temp Pulse Resp BP Pulse Ox 98.5 F 80 16 113/77 94 06/09/19 03:54 06/09/19 08:35 06/09/19 08:35 06/09/19 03:54 06/09/19 08:35 Intake & Output 06/08/19 06/09/19 06/10/19 06:59 06:59 06:59 Intake Total 4008 5440 480 Output Total 2800 Balance 1208 5440 480 Weight 53.8 kg 46.1 kg General appearance: PRESENT: no acute distress Head exam: PRESENT: atraumatic Neck exam: ABSENT: carotid bruit, JVD, lymphadenopathy, thyromegaly Respiratory exam: PRESENT: clear to auscultation poonam. ABSENT: rales, rhonchi, wheezes GI/Abdominal exam: PRESENT: normal bowel sounds, soft. ABSENT: distended, guarding, mass, organolmegaly, rebound, tenderness Neurological exam: PRESENT: alert, awake, oriented to person, oriented to place, oriented to time, oriented to situation Results Laboratory Results: 06/05/19 06:20 06/07/19 06:07 06/01/19 06/01/19 12:04 12:04 Creatine Kinase 35 Troponin I < 0.012 Impressions: Abdomen/Pelvis CT 06/01/19 14:16 IMPRESSION: 1. Status post right hemicolectomy with ileocolic anastomosis. Since the previous study there has been development of thickening of mucosa of multiple loops of distal small bowel with a moderate amount of fluid noted in large and small bowel. The possibility of an enteritis must be considered. In addition given dilatation of small bowel loops follow-up indicated to exclude partial obstruction. 2. Since previous study there is been increase in intrahepatic and extrahepatic biliary dilatation. Clinical correlation with liver enzymes indicated. 3. There is again evidence of an infrarenal abdominal aortic aneurysm measuring 4 x 4.1 by 4.1 cm. AAA Size: Follow-up Recommendation 4.0-4.4 cm Every 12 months, vascular consultation recommended *Based upon the Society for Vascular Surgery Guidelines: J Vasc Surg. 2009 Oct;50(4 Suppl):S2-49 *For aortas of maximum diameter of 2.6-2.9 cm meeting the criteria for AAA (?1.5 x proximal normal segment) Chest/Abdomen CTA 06/03/19 00:00 IMPRESSION: Nearly nondiagnostic exam for the assessment of pulmonary embolus. No large or central pulmonary embolus. Small bibasilar effusions with adjacent consolidation. Mild distention of the esophagus with food/debris in the esophagus. Partial visualization of dilated fluid-filled loop of small bowel in the right upper quadrant. Question air/pneumatosis associated with the wall of the small bowel in the right upper quadrant. Recommend further assessment with dedicated CT abdomen/pelvis. Small amount of ascites. TECHNICAL DOCUMENTATION: Quality ID # 436: Final reports with documentation of one or more dose reduction techniques (e.g., Automated exposure control, adjustment of the mA and/or kV according to patient size, use of iterative reconstruction technique) copyright 2011 [employer]- All Rights Reserved Upper GI and Small Bowel X-Ray 06/03/19 07:00 IMPRESSION: 1. Markedly distended small bowel loops throughout the abdomen measuring up to 6.0 cm most compatible with small bowel obstructive process. 2. Postsurgical changes from the right hemicolectomy with significant delay in contrast passage. There is questionable opacification of colonic loops within the deep pelvis on the 18 hour films. Evaluation severely limited secondary to multiple overlying contrast containing small bowel loops and dilution of contrast. Chest X-Ray 06/04/19 00:00 IMPRESSION: 1. Nasoenteric tube coiled over gastric fundus with distal tip overlying proximal duodenum. 2. Minimal bibasilar opacities and likely small bilateral effusions. 3. Persistent multiple loops of dilated small bowel, not significantly changed from prior. Guidance Fluoroscopy 06/04/19 00:00 IMPRESSION: SUCCESSFUL PLACEMENT OF A 5 FR DUAL LUMEN 35 CM PICC IN THE LEFT BASILIC VEIN. Interventional Vascular Procedure 06/04/19 00:00 IMPRESSION: SUCCESSFUL PLACEMENT OF A 5 FR DUAL LUMEN 35 CM PICC IN THE LEFT BASILIC VEIN. PICC Line Insertion 06/04/19 00:00 IMPRESSION: SUCCESSFUL PLACEMENT OF A 5 FR DUAL LUMEN 35 CM PICC IN THE LEFT BASILIC VEIN. Abdomen X-Ray 06/05/19 00:00 IMPRESSION: Persistent small-bowel distention filled with contrast. No definite contrast within the colon. Findings remain consistent with at least partial obstruction if not complete. KUB X-Ray 06/06/19 06:00 IMPRESSION: Small amount of barium is now seen in the transverse colon and rectosigmoid. Findings discussed with Dr. Berman Assessment and Plan - Diagnosis (1) Salmonella enteritis Is this a current diagnosis for this admission?: Yes Plan: I will switch her to p.o. Cipro (2) Small bowel obstruction Is this a current diagnosis for this admission?: Yes Plan: Has resolved (3) Intractable diarrhea Is this a current diagnosis for this admission?: Yes Plan: Stool culture positive for Salmonella. Patient has been on IV Cipro. (4) Severe hypokalemia Is this a current diagnosis for this admission?: Yes Plan: Has resolved (5) Acute metabolic encephalopathy Is this a current diagnosis for this admission?: Yes Plan: No change so far (6) COPD (chronic obstructive pulmonary disease) Qualifiers: Emphysema type: unspecified Is this a current diagnosis for this admission?: Yes Plan: I will put her on PRN bronchodilators. (7) Chronic pancreatitis Qualifiers: Pancreatitis type: alcohol induced Qualified Code(s): K86.0 - Alcohol- induced chronic pancreatitis Is this a current diagnosis for this admission?: Yes Plan: Her lipase within normal limits. We will continue her pain medication. (8) Coronary artery disease Qualifiers: Associated angina: without angina Is this a current diagnosis for this admission?: Yes Plan: Continue home meds (9) Hypertension Qualifiers: Hypertension type: essential hypertension Qualified Code(s): I10 - Essential (primary) hypertension Is this a current diagnosis for this admission?: Yes Plan: Continue home meds (10) Tobacco dependence Is this a current diagnosis for this admission?: Yes Plan: Patient will be counseled and encouraged to quit smoking. Is a meantime we will put her on nicotine patch. (11) Moderate malnutrition Is this a current diagnosis for this admission?: Yes Plan: Her nutritional status compounded by her current acute situation. We will augment her nutritional status. (12) Debility and deconditioning Is this a current diagnosis for this admission?: Yes Plan: PT requested
[2019-06-09] MEDS: QUETIAPINE FUMARATE 100 MG TABLET PO SCH (21:46)
[2019-06-09] MEDS: SIMVASTATIN 40 MG TABLET PO SCH (21:48)
[2019-06-09] MEDS: CLONAZEPAM 1 MG TABLET PO SCH (21:49)
[2019-06-09] MEDS: BENZTROPINE MESYLATE 1 MG TABLET PO SCH (21:49)
[2019-06-10] MEDS: IPRATROPIUM BROMIDE 0.02% NEB 0.5 MG/2.5 ML AMPUL NEB SCH ×2 (00:27→08:03)
[2019-06-10] MEDS: LEVALBUTEROL HCL NEB 1.25 MG/3 ML AMPUL NEB SCH ×2 (00:27→08:03)
[2019-06-10] MEDS: CIPROFLOXACIN 400 MG/D5W RTU 400 MG/200 ML RTUPB IV SCH (05:31)
[2019-06-10] MEDS: FLUOXETINE HCL 20 MG/5 ML UDCUP PO SCH (09:14)
[2019-06-10] MEDS: ENOXAPARIN SODIUM INJ 40 MG/0.4 ML DISP.SYRIN SUBCUT SCH (09:14)
[2019-06-10] MEDS: POTASSIUM CHLORIDE 10 MEQ CAPSULE.ER PO SCH (09:14)
[2019-06-10] MEDS: NORMAL SALINE 10 ML SDV (SCHEDULED) IV SCH (09:15)
[2019-06-10] MEDS: PANTOPRAZOLE SODIUM 40 MG VIAL IV SCH (09:15)
[2019-06-10] MEDS ORDERED: FUROSEMIDE 40 MG TABLET ONE (12:11)
--- NOTE | 2019-06-10 12:37 | PDOC DISCHARGE SUMMARY ---
General - Admit/Disc Date/PCP Admission Date/Primary Care Provider: 06/01/19 14:44 STELLA MCLAUGHLIN, Discharge Date: 06/10/19 - Discharge Diagnosis (1) Intractable diarrhea Is this a current diagnosis for this admission?: Yes Summary: The patient's stool was cultured and it was found that the diarrhea was related to a Salmonella enteritis. The patient was placed on ciprofloxacin. The patient is still having some loose stool but is improved. She will complete her ciprofloxacin therapy as an outpatient. The exact etiology of the Salmonella is unknown. (2) Severe hypokalemia Is this a current diagnosis for this admission?: Yes Summary: The patient's serum potassium was quite low due to the diarrhea and volume loss. Her serum sodium is back to normal after multiple supplements. She will discharge 20 mEq of potassium chloride daily and should have her electrolytes checked at her primary care physician's follow-up appointment within 7 days. As her stool output decreases and appetite improved this should balance her serum potassium. I only gave her 14 days worth of potassium chloride. (3) Acute metabolic encephalopathy Is this a current diagnosis for this admission?: Yes Summary: Encephalopathy was secondary to infection. Encephalopathy has resolved. (4) COPD (chronic obstructive pulmonary disease) Is this a current diagnosis for this admission?: Yes Summary: The patient has a history of chronic obstructive pulmonary disease. It was stable during his admission. She was treated with nebulizer treatments and will return to her home regimen at discharge. (5) Chronic pancreatitis Is this a current diagnosis for this admission?: Yes Summary: The patient had reasonable pain control during her admission. Her enzymes were not elevated. If the patient has chronic diarrhea she certainly could have pancreatic insufficiency and might benefit from Pancrease enzyme replacement. (6) Coronary artery disease Is this a current diagnosis for this admission?: Yes Summary: The patient did not have any episodes of chest pain during her admission. She will resume her home medication regimen at discharge. (7) Hypertension Is this a current diagnosis for this admission?: Yes Summary: Resume home medication regimen (8) Tobacco dependence Is this a current diagnosis for this admission?: Yes Summary: The patient did have a nicotine patch on during this hospitalization. Encourag ed continued use after discharge with smoking cessation. (9) Salmonella enteritis Is this a current diagnosis for this admission?: Yes Summary: As noted above stool culture positive for Salmonella. The patient will complete a course of ciprofloxacin. - Additional Information Resuscitation Status: Full Code Discharge Diet: Regular Discharge Activity: Activity As Tolerated, Balance Activity w/Rest Prescriptions: Ciprofloxacin HCl [Cipro 500 mg Tablet] 500 mg PO BID 5 Days #10 tablet Potassium Chloride 20 meq PO DAILY 14 Days #14 tab.er.prt Home Medications: Benztropine Mesylate 2 mg PO QHS 12/15/16 Clonazepam [Klonopin 1 mg Tablet] 1 mg PO QHS 12/15/16 Quetiapine Fumarate [Seroquel] 400 mg PO QHS 12/15/16 Simvastatin 40 mg PO QHS 12/15/16 Esomeprazole Magnesium 40 mg PO DAILY 06/01/19 Fluoxetine HCl [Prozac] 10 mg PO DAILY 06/01/19 Oxycodone HCl/Acetaminophen [Percocet 10-325 mg Tablet] 1 each PO Q6HP PRN 06/01/19 Ranitidine HCl [Zantac] 300 mg PO QHS 06/01/19 Acetaminophen [Tylenol 325 mg Tablet] 650 mg PO Q4HP PRN tablet 06/10/19 Ciprofloxacin HCl [Cipro 500 mg Tablet] 500 mg PO BID 5 Days #10 tablet 06/10/19 Nicotine [Nicoderm 21 mg/24 Hr Transderm Patch] 1 each TD DAILYP PRN patch.td24 06/10/19 Phenol/Sodium Phenolate [Chloraseptic Sore Throat Penn 177 ml] 2 spray PO Q4HP PRN bottle 06/10/19 Potassium Chloride 20 meq PO DAILY 14 Days #14 tab.er.prt 06/10/19 History of Present Illness Patient complains of: Altered mental status and frequent bowel movements with diarrhea History of Present Illness: PETERSON MONTOYA is a 58 year old female with a complex past medical history. She presented after several days of nausea and vomiting. She had altered mental status with profuse diarrhea. She was severely hypokalemic. The patient was referred to the hospitalist for admission for potassium repletion, IV fluids and to work-up the intractable diarrhea. Stool specimen did reveal that the patient had Salmonella. Hospital Course Hospital Course: The patient had benign hospital course. With the addition of ciprofloxacin her stool began to improve. She still has loose stool but it is certainly not as bad as it was. The abdominal pain is improved as well. The altered mental status has cleared with the treatment of the infection. The patient will discharge on her home medication regimen with the addition of the ciprofloxacin 500 mg twice daily for an additional 5 days and potassium chloride 20 mEq daily. Once the diarrhea resolves completely the patient will most likely no longer any potassium supplementation. Regular diet was ordered and if she tolerates the diet she can go home. And on the possibility for diarrhea with chronic pancreatitis patient's is pancreatic insufficiency. At this time there is an identifiable cause for the diarrhea but pancreatic insufficiency should stay on the radar. Physical Exam Vital Signs: Temp Pulse Resp BP Pulse Ox 98.4 F 84 16 123/85 94 06/10/19 07:37 06/10/19 08:03 06/10/19 08:03 06/10/19 07:37 06/10/19 08:03 Intake & Output 06/09/19 06/10/19 06/11/19 06:59 06:59 06:59 Intake Total 5440 2237 Output Total 700 Balance 5440 1537 Weight 46.1 kg 47.7 kg General appearance: PRESENT: no acute distress, thin, well-developed Head exam: PRESENT: atraumatic, normocephalic Ear exam: PRESENT: normal external ear exam. ABSENT: bleeding, drainage Mouth exam: PRESENT: dry mucosa, tongue midline, other - Irritated area central portion of tongue Respiratory exam: PRESENT: clear to auscultation poonam, symmetrical, unlabored. ABSENT: rales, rhonchi, tachypnea, wheezes Cardiovascular exam: PRESENT: RRR, +S1, +S2, systolic murmur - 2/6 GI/Abdominal exam: PRESENT: normal bowel sounds, soft, tenderness - Slightly tender left lower quadrant. ABSENT: distended Rectal exam: PRESENT: deferred Extremities exam: ABSENT: calf tenderness, joint swelling, pedal edema, tenderness Musculoskeletal exam: PRESENT: normal inspection. ABSENT: deformity Neurological exam: PRESENT: alert, awake, oriented to person, oriented to place, oriented to time, oriented to situation, CN II-XII grossly intact Psychiatric exam: PRESENT: flat affect. ABSENT: agitated, anxious Focused psych exam: ABSENT: delusional, restlessness Results Laboratory Results: 06/05/19 06:20 06/07/19 06:07 06/01/19 06/01/19 12:04 12:04 Creatine Kinase 35 Troponin I < 0.012 Impressions: Abdomen/Pelvis CT 06/01/19 14:16 IMPRESSION: 1. Status post right hemicolectomy with ileocolic anastomosis. Since the previous study there has been development of thickening of mucosa of multiple loops of distal small bowel with a moderate amount of fluid noted in large and small bowel. The possibility of an enteritis must be considered. In addition given dilatation of small bowel loops follow-up indicated to exclude partial obstruction. 2. Since previous study there is been increase in intrahepatic and extrahepatic biliary dilatation. Clinical correlation with liver enzymes indicated. 3. There is again evidence of an infrarenal abdominal aortic aneurysm measuring 4 x 4.1 by 4.1 cm. AAA Size: Follow-up Recommendation 4.0-4.4 cm Every 12 months, vascular consultation recommended *Based upon the Society for Vascular Surgery Guidelines: J Vasc Surg. 2009 Oct;50(4 Suppl):S2-49 *For aortas of maximum diameter of 2.6-2.9 cm meeting the criteria for AAA (?1.5 x proximal normal segment) Chest/Abdomen CTA 06/03/19 00:00 IMPRESSION: Nearly nondiagnostic exam for the assessment of pulmonary embolus. No large or central pulmonary embolus. Small bibasilar effusions with adjacent consolidation. Mild distention of the esophagus with food/debris in the esophagus. Partial visualization of dilated fluid-filled loop of small bowel in the right upper quadrant. Question air/pneumatosis associated with the wall of the small bowel in the right upper quadrant. Recommend further assessment with dedicated CT abdomen/pelvis. Small amount of ascites. TECHNICAL DOCUMENTATION: Quality ID # [id number]: Final reports with documentation of one or more dose reduction techniques (e.g., Automated exposure control, adjustment of the mA and/or kV according to patient size, use of iterative reconstruction technique) copyright 2011 [employer]- All Rights Reserved Upper GI and Small Bowel X-Ray 06/03/19 07:00 IMPRESSION: 1. Markedly distended small bowel loops throughout the abdomen measuring up to 6.0 cm most compatible with small bowel obstructive process. 2. Postsurgical changes from the right hemicolectomy with significant delay in contrast passage. There is questionable opacification of colonic loops within the deep pelvis on the 18 hour films. Evaluation severely limited secondary to multiple overlying contrast containing small bowel loops and dilution of contrast. Chest X-Ray 06/04/19 00:00 IMPRESSION: 1. Nasoenteric tube coiled over gastric fundus with distal tip overlying proximal duodenum. 2. Minimal bibasilar opacities and likely small bilateral effusions. 3. Persistent multiple loops of dilated small bowel, not significantly changed from prior. Guidance Fluoroscopy 06/04/19 00:00 IMPRESSION: SUCCESSFUL PLACEMENT OF A 5 FR DUAL LUMEN 35 CM PICC IN THE LEFT BASILIC VEIN. Interventional Vascular Procedure 06/04/19 00:00 IMPRESSION: SUCCESSFUL PLACEMENT OF A 5 FR DUAL LUMEN 35 CM PICC IN THE LEFT BASILIC VEIN. PICC Line Insertion 06/04/19 00:00 IMPRESSION: SUCCESSFUL PLACEMENT OF A 5 FR DUAL LUMEN 35 CM PICC IN THE LEFT BASILIC VEIN. Abdomen X-Ray 06/05/19 00:00 IMPRESSION: Persistent small-bowel distention filled with contrast. No defini te contrast within the colon. Findings remain consistent with at least partial obstruction if not complete. KUB X-Ray 06/06/19 06:00 IMPRESSION: Small amount of barium is now seen in the transverse colon and rectosigmoid. Findings discussed with Dr. Berman Qualifiers - * PATIENT BEING DISCHARGED WITH ANY OF THE FOLLOWING DIAGNOSIS: No Acute Heart Failure - Is this a Heart Failure Patient?: No Plan Discharge Plan: As outlined above Time Spent: Greater than 30 Minutes
[2019-06-10 13:44] VITALS: BP 123/71
[2019-06-10] MEDS ORDERED: OXYCODONE-ACETAMINOPHEN 5-325 MG TABLET PO PRN (18:36)
[2019-06-10] MEDS ORDERED: CLONAZEPAM 1 MG TABLET PO SCH (22:00)
== END 2019-06-10 14:36 | disposition home or self-care (01) | DRG 371 ==
LOC: ER 11:07 → EH 14:44 → 3S 17:14
PROVIDERS: ADMIT Internal Medicine; ATTEND Internal Medicine
PROC: 02HV33Z Insertion of Infusion Device into Superior Vena Cava, Percutaneous Approach (ICD-10-PCS; principal; 2019-06-04)
PROC: B518ZZA Fluoroscopy of Superior Vena Cava, Guidance (ICD-10-PCS; 2019-06-04)
PROC: B548ZZA Ultrasonography of Superior Vena Cava, Guidance (ICD-10-PCS; 2019-06-04)
DX: A02.0 Salmonella enteritis (principal); G93.41 Metabolic encephalopathy; E87.2 Acidosis; E87.3 Alkalosis; E87.1 Hypo-osmolality and hyponatremia; K86.0 Alcohol-induced chronic pancreatitis; E44.0 Moderate protein-calorie malnutrition; Z68.1 Body mass index [BMI] 19.9 or less, adult; E87.6 Hypokalemia; R19.7 Diarrhea, unspecified; K21.9 Gastro-esophageal reflux disease without esophagitis; I10 Essential (primary) hypertension; E86.0 Dehydration; E78.00 Pure hypercholesterolemia, unspecified; I71.4 Abdominal aortic aneurysm, without rupture; J44.9 Chronic obstructive pulmonary disease, unspecified; F17.210 Nicotine dependence, cigarettes, uncomplicated; Z85.038 Personal history of other malignant neoplasm of large intestine; Z85.43 Personal history of malignant neoplasm of ovary; Z85.528 Personal history of other malignant neoplasm of kidney; Z90.5 Acquired absence of kidney; Z90.49 Acquired absence of other specified parts of digestive tract
CPT/HCPCS: 36415; 36569; 71045; 71275; 74018; 74019; 74177; 74249; 76937; 77001; 80048; 80053; 81001; 82550; 82803; 82962; 83605; 83690; 83735; 84132; 84484; 85025; 85027; 87040; 87045; 87070; 87077; 87186; 87205; 87493; 89055; 93005; 93010; 94640; 96365; 96368; 96375; 99291; J0744; J1642; J1650; J2060; J2270; J2405; J2543; J3411; J3475; J3480; J3490; J7050; J7120; J7121; S0164

== ENCOUNTER → 2020-04-24 | Outpatient (CLI) | payer MEDICARE, MEDICAID ==
--- NOTE | 2020-04-24 17:06 | WOMENS IMAGING REPORT ---
EXAM DESCRIPTION: 3D SCREENING MAMMO BILAT IMAGES COMPLETED DATE/TIME: 04/24/2020 9:50 am REASON FOR STUDY: Z12.31 ENCOUNTER FOR SCREENING MAMMOGRAM FOR MALIGNANT NEOPLASM OF BREAST Z12.31 ENCNTR SCREEN MAMMOGRAM FOR MALIGNANT NEOPLASM OF [place]IM[place] COMPARISON: 2018 EXAM PARAMETERS: Views: Standard craniocaudal and mediolateral oblique views of each breast recorded using digital acquisition and breast tomosynthesis. Read with the assistance of CAD. .[facility] [place] [employer] Technologist Version 9.2 LIMITATIONS: None. FINDINGS: No suspicious masses, suspicious calcifications or architectural distortion. No areas of c oncern. IMPRESSION: NEGATIVE MAMMOGRAM. BIRADS 1. BREAST DENSITY: b. There are scattered areas of fibroglandular density. BIRAD: ASSESSMENT: 1 NEGATIVE RECOMMENDATION: ROUTINE SCREENING COMMENT: The patient has been notified of the results by letter per MQSA requirements. Additional no tification policies are in place for contacting patient with suspicious or incomplete findings. Quality ID #[id number]: The [employer] recommends an annual screening mammogram for women aged 40 years or over. This facility utilizes a reminder system to ensure that all patients receive reminder letters, and/or direct phone calls for appointments. This includes reminders for routine scr eening mammograms, diagnostic mammograms, or other Breast Imaging Interventions when appropriate. Th is patient will be placed in the appropriate reminder system. TECHNICAL DOCUMENTATION: FINDING NUMBER: (1) ASSESSMENT: (1) JOB ID: [id number] 2010 [employer]- All Rights Reserved Reading location - IP/workstation name: [email or web address]
== END ==
LOC: WI 09:29
PROVIDERS: ATTEND Family Medicine
DX: Z12.31 Encounter for screening mammogram for malignant neoplasm of breast (principal)
CPT/HCPCS: 77063; 77067